=== PATIENT | female | born 1965 | race Caucasian/White ===

== ENCOUNTER 2020-02-12 10:05 | Outpatient (REF) | payer OTHER, SELFPAY ==
[2020-02-12 10:58] LABS: MANUAL DIFF FLAG NO
[2020-02-12 11:06] LABS: Basophils Absolute Auto 0.1 X10*3/uL (0.0-0.2); Basophils Percent Auto 1.1 % (0-2); Eosinophils Absolute Auto 0.2 X10*3/uL (0.0-0.4); Eosinophils Percent Auto 2.2 % (0-4); Hematocrit 42.1 % (37-47); Imm Gran Abs Auto 0.02 X10*3/uL (0.00-0.03); Imm Gran Pct Auto 0.3 % (0.0-0.4); Lymphocytes Absolute Auto 3.1 X10*3/uL (1.2-4.9); Mean Corpuscular HGB Conc 33.3 g/dl (31.0-35.0); Mean Corpuscular Hemoglobin 31.5 pg (27.0-33.0); Mean Corpuscular Volume 94.6 fL (80-98); Mean Platelet Volume 9.6 fL (9.4-12.3); Monocytes Absolute Auto 0.4 X10*3/uL (0.1-1.2); Monocytes Percent Auto 5.5 % (2-11); Neutrophils Absolute Auto 3.6 X10*3/uL (2.0-8.3); Neutrophils Percent Auto 48.9 % (45-73); Platelet Count 337 X10*3/uL (160-400); Red Blood Count 4.45 X10*6/uL (4.20-5.50); Red Cell Distribution Width 11.5 % (11.0-16.0); White Blood Count 7.3 X10*3/uL (4.8-10.8)
[2020-02-12 11:26] LABS: Anion Gap 14 (12-20); Blood Urea Nitrogen 18 mg/dL (9-16); Calcium 9.6 mg/dL (8.4-10.2); Carbon Dioxide 25 mmol/L (22-29); Chloride 103 mmol/L (96-108); Estimated Glomerular Filt Rate 47; Glucose Fasting 111 mg/dL (60-99); Potassium 4.2 mmol/l (3.3-5.1); Sodium 138 mmol/L (135-145)
[2020-02-12 11:49] LABS: TSH reflex Free T4 1.05 mIU/mL (0.32-4.0)
[2020-02-12 13:46] LABS: Cholesterol 254 mg/dL; HDL Cholesterol 44 mg/dL; LDL Cholesterol Calculated 167 mg/dl; Triglycerides 215 mg/dL
== END 2020-02-12 10:06 | disposition home or self-care (01) ==
LOC: HO.LAB 10:05
PROVIDERS: PCP Internal Medicine; Visit Provider Internal Medicine
DX: Z00.01 Encounter for general adult medical examination with abnormal findings (principal); E66.9 Obesity, unspecified; K29.70 Gastritis, unspecified, without bleeding; G47.9 Sleep disorder, unspecified; R89.4 Abnormal immunological findings in specimens from other organs, systems and tissues
CPT/HCPCS: 36415; 80048; 80061; 84443; 85025

== ENCOUNTER 2020-05-23 07:49 | Outpatient (REF) | payer OTHER, SELFPAY ==
[2020-05-24 08:21] LABS: BV Int Neg Control Negative (Negative); BV Int Pos Control Positive (Positive)
[2020-05-24 09:57] LABS: C. trachomatis RNA TMA NOT DETECTED (NOT DETECTED); N. gonorrhoeae RNA TMA NOT DETECTED (NOT DETECTED)
== END 2020-05-23 07:50 | disposition home or self-care (01) ==
LOC: HO.LAB 07:49
PROVIDERS: PCP Internal Medicine; Visit Provider Advanced Practice Midwife
DX: Z01.419 Encounter for gynecological examination (general) (routine) without abnormal findings (principal); R10.2 Pelvic and perineal pain; E66.09 Other obesity due to excess calories; Z68.30 Body mass index [BMI] 30.0-30.9, adult
CPT/HCPCS: 87480; 87491; 87510; 87591; 87660

== ENCOUNTER 2020-06-06 10:45 | Outpatient (REF) | payer OTHER, SELFPAY ==
--- NOTE | ~2020-06-06 | US_ITS ---
EXAMINATION: US PELVIS COMPLETE US PELVIS ENDOVAGINAL CLINICAL INFORMATION: Pelvic and perineal pain COMPARISON: 04/15/2016 TECHNIQUE: Transabdominal and transvaginal images of the pelvis were obtained. FINDINGS: UTERUS: Retroverted, retroflexed. Normal size and contour, measuring 7.3 x 5.2 x 6.7 cm (cervix to fundus x AP x transverse). Uniform, homogeneous endometrium measures 0.3 cm in width. There is fluid in the endometrial canal with an exophytic 5 mm structure which could represent a polyp or pedunculated fibroid. Several leiomyomata are seen. The largest is a 4.4 cm leiomyoma of the right uterine fundus, 1.3 cm leiomyoma in the left uterine fundus and a 2.9 cm right uterine body submucosal leiomyoma. A 1.2 cm right uterine body intramural leiomyoma was not present previously. RIGHT OVARY: Right ovary is not seen. No adnexal mass. LEFT OVARY: Normal-appearing left ovary measures 2.2 x 0.8 x 1.5 cm. FREE FLUID: No pelvic free fluid. US/US pelvic complete IMPRESSION: Multiple leiomyomata are seen. The largest measures 4.4 cm in the right uterine fundus, increased in size from 3.7 cm maximum dimension previously. There is a new 1.2 cm right uterine body leiomyoma. Additional leiomyomas are similarly slightly increased in size from prior study. Recommend correlation with the patient's menstrual status. It would be unusual for leiomyomata to increase in size after menopause although the prior study was remote, in 2016. There is fluid in the endometrial canal with a 5 mm exophytic soft tissue lesion which could represent a pedunculated leiomyoma or polyp. Consider correlation with hysteroscopy.
--- NOTE | ~2020-06-06 | US_ITS ---
EXAMINATION: US PELVIS COMPLETE US PELVIS ENDOVAGINAL CLINICAL INFORMATION: Pelvic and perineal pain COMPARISON: 04/15/2016 TECHNIQUE: Transabdominal and transvaginal images of the pelvis were obtained. FINDINGS: UTERUS: Retroverted, retroflexed. Normal size and contour, measuring 7.3 x 5.2 x 6.7 cm (cervix to fundus x AP x transverse). Uniform, homogeneous endometrium measures 0.3 cm in width. There is fluid in the endometrial canal with an exophytic 5 mm structure which could represent a polyp or pedunculated fibroid. Several leiomyomata are seen. The largest is a 4.4 cm leiomyoma of the right uterine fundus, 1.3 cm leiomyoma in the left uterine fundus and a 2.9 cm right uterine body submucosal leiomyoma. A 1.2 cm right uterine body intramural leiomyoma was not present previously. RIGHT OVARY: Right ovary is not seen. No adnexal mass. LEFT OVARY: Normal-appearing left ovary measures 2.2 x 0.8 x 1.5 cm. FREE FLUID: No pelvic free fluid. US/US transvaginal IMPRESSION: Multiple leiomyomata are seen. The largest measures 4.4 cm in the right uterine fundus, increased in size from 3.7 cm maximum dimension previously. There is a new 1.2 cm right uterine body leiomyoma. Additional leiomyomas are similarly slightly increased in size from prior study. Recommend correlation with the patient's menstrual status. It would be unusual for leiomyomata to increase in size after menopause although the prior study was remote, in 2016. There is fluid in the endometrial canal with a 5 mm exophytic soft tissue lesion which could represent a pedunculated leiomyoma or polyp. Consider correlation with hysteroscopy.
== END 2020-06-06 10:46 | disposition home or self-care (01) ==
LOC: HO.US 10:45
PROVIDERS: PCP Internal Medicine; Visit Provider Advanced Practice Midwife
DX: R10.2 Pelvic and perineal pain (principal)
CPT/HCPCS: 76830; 76856

== ENCOUNTER → 2020-06-20 11:22 | Outpatient (BNVA) | payer SELFPAY | PROVIDERS: PCP Internal Medicine; Visit Provider Advanced Practice Midwife | DX: Z71.2 Person consulting for explanation of examination or test findings (principal); D21.9 Benign neoplasm of connective and other soft tissue, unspecified; N89.8 Other specified noninflammatory disorders of vagina | CPT/HCPCS: Q3014 ==

== ENCOUNTER → 2020-07-04 15:18 | Outpatient (BNVA) | payer SELFPAY | PROVIDERS: PCP Internal Medicine; Visit Provider Nurse Practitioner | DX: K21.9 Gastro-esophageal reflux disease without esophagitis (principal); K29.60 Other gastritis without bleeding; Z83.71 Family history of colonic polyps; A04.8 Other specified bacterial intestinal infections | CPT/HCPCS: Q3014 ==

== ENCOUNTER → 2020-07-07 07:48 | Outpatient (BNVA) | payer SELFPAY | PROVIDERS: PCP Internal Medicine; Visit Provider Obstetrics & Gynecology | DX: R93.5 Abnormal findings on diagnostic imaging of other abdominal regions, including retroperitoneum (principal) | CPT/HCPCS: 99212 ==

== ENCOUNTER → 2020-08-01 13:15 | Outpatient (BNVA) | payer SELFPAY | PROVIDERS: PCP Internal Medicine; Visit Provider Nurse Practitioner | DX: A04.8 Other specified bacterial intestinal infections (principal); B37.81 Candidal esophagitis; B37.0 Candidal stomatitis; K29.60 Other gastritis without bleeding; K21.9 Gastro-esophageal reflux disease without esophagitis; E66.09 Other obesity due to excess calories; Z68.30 Body mass index [BMI] 30.0-30.9, adult; Z83.71 Family history of colonic polyps | CPT/HCPCS: Q3014 ==

== ENCOUNTER → 2020-08-22 13:03 | Outpatient (BNVA) | payer OTHER, SELFPAY | PROVIDERS: PCP Internal Medicine; Visit Provider Nurse Practitioner | DX: A04.8 Other specified bacterial intestinal infections (principal); K29.60 Other gastritis without bleeding; K21.9 Gastro-esophageal reflux disease without esophagitis; Z83.71 Family history of colonic polyps | CPT/HCPCS: Q3014 ==

== ENCOUNTER 2020-09-02 06:00 | Outpatient (REF) | payer SELFPAY | END 2020-09-02 06:01 | disposition home or self-care (01) | LOC: HO.LNP 06:00 | PROVIDERS: Visit Provider Nurse Practitioner | DX: Z11.0 Encounter for screening for intestinal infectious diseases (principal) | CPT/HCPCS: 87338 ==

== ENCOUNTER → 2020-09-20 14:40 | Outpatient (BNVA) | payer OTHER, SELFPAY | PROVIDERS: PCP Internal Medicine; Visit Provider Obstetrics & Gynecology | DX: R93.5 Abnormal findings on diagnostic imaging of other abdominal regions, including retroperitoneum (principal) | CPT/HCPCS: 99212; Q3014 ==

== ENCOUNTER 2020-09-28 08:47 | Day surgery (SDC) | payer OTHER, SELFPAY ==
[2020-08-30 19:37] VITALS: BMI 29.8
--- NOTE | 2020-09-27 10:18 | P.CONAN_ITS ---
Documented by User: Penny Reagan 09/27/20 10:19 HPI - Anesthesia Eval Consult details Narrative: 55yo F for Hysteroscopy with Myosure, Poss Polypectomy, Poss Myomectomy PMFSH Active Problems Active Problems: All Active Problems (Updated 09/27/20 @ 09:08 by Sonal Fernández MD) Abnormal endometrial ultrasound (Acute) Pelvic pain in female (Acute) Fibroids (Acute) Vaginal dryness (Acute) GERD (gastroesophageal reflux disease) (Acute) Erosive gastritis (Acute) Family history of polyps in the colon (Acute) H. pylori infection (Acute) Candidiasis of mouth and esophagus (Acute) Impaired fasting blood sugar (Acute) Herpes simplex antibody positive (Acute) Difficulty sleeping (Acute) Obesity (Acute) Past Medical History Medical History Difficulty sleeping Encounter to discuss test results Erosive gastritis GERD (gastroesophageal reflux disease) Herpes simplex antibody positive Impaired fasting blood sugar Obesity Well woman exam with routine gynecological exam Family History Family History Father Stomach cancer Mother HTN (hypertension) Diabetes mellitus High cholesterol CVD (cardiovascular disease) Maternal Aunt Breast cancer Surgical History Surgical History Breast mass, right History of endoscopy History of esophagogastroduodenoscopy (EGD) History of hysteroscopy History of radical nephrectomy History of tubal ligation Hx of cholecystectomy Hx of colonoscopy Social History Social History Alcohol intake: never Patient Tobacco Use Status: Never used Tobacco Use of substances other than those prescribed or required for medical reasons: No Have you been hit, kicked, punched, or otherwise hurt by someone within the past year? 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 Gender identity: female Meds Allergies Allergy/AdvReac Type Severity Reaction Status Date / Time bee pollen [BEE STINGS] Allergy Unknown SWELLING Verified 09/20/20 14:41 From PERCOCET AdvReac Unknown NAUSEA & Uncoded 07/07/20 08:07 VOMITING Home Medications Medication Instructions Recorded Confirmed Last Taken Type ketoconazole 2 % shampoo 1 appl TOPICAL DAILY PRN 02/04/20 08/30/20 Unknown History mometasone 0.1 % topical solution 1 appl TOPICAL DAILY PRN 02/04/20 08/30/20 Unknown History cholecalciferol (vitamin D3) 50 50 mcg PO QWEEK cap 07/04/20 08/30/20 Unknown History mcg (2,000 unit) capsule Exam Exam Date and Time: September 27, 2020 1018 Height,Weight and Vital Signs: Height 5 ft 1 in Weight 71.668 kg Assessment and Plan Assessment Anesthesia Assessment: Chart Reviewed Documented by User: Shahida Rapp 09/28/20 10:48 [facility] Past Medical History Medical History Difficulty sleeping Encounter to discuss test results Erosive gastritis GERD (gastroesophageal reflux disease) Herpes simplex antibody positive Impaired fasting blood sugar Obesity Well woman exam with routine gynecological exam Family History Family History Father Stomach cancer Mother HTN (hypertension) Diabetes mellitus High cholesterol CVD (cardiovascular disease) Maternal Aunt Breast cancer Surgical History Surgical History Breast mass, right History of endoscopy History of esophagogastroduodenoscopy (EGD) History of hysteroscopy History of radical nephrectomy History of tubal ligation Hx of cholecystectomy Hx of colonoscopy Social History Social History Alcohol intake: never Patient Tobacco Use Status: Never used Tobacco Use of substances other than those prescribed or required for medical reasons: No Have you been hit, kicked, punched, or otherwise hurt by someone within the past year? 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 Gender identity: female Meds Allergies Allergy/AdvReac Type Severity Reaction Status Date / Time bee pollen [BEE STINGS] Allergy Unknown SWELLING Verified 09/20/20 14:41 From PERCOCET AdvReac Unknown NAUSEA & Uncoded 07/07/20 08:07 VOMITING Home Medications Medication Instructions Recorded Confirmed Last Taken Type ketoconazole 2 % shampoo 1 appl TOPICAL DAILY PRN 02/04/20 08/30/20 Unknown History mometasone 0.1 % topical solution 1 appl TOPICAL DAILY PRN 02/04/20 08/30/20 Unknown History cholecalciferol (vitamin D3) 50 50 mcg PO QWEEK cap 07/04/20 08/30/20 Unknown History mcg (2,000 unit) capsule Exam Airway Mallampati Class: II TM Dist: >3cm Neck ROM: Full Assessment and Plan Assessment Anesthesia Assessment: Anesthesia Plan Discussed and Chart Reviewed Final Anesthetic Review NPO: Yes ASA Class: II Final Preanesthetic Review: No Changes in Pt Med Stat, Meds/Allgs Chart Reviewed, Consent Obtained/Reviewed and Anes Risks/Benef Reviewed Patient Risk: Low Procedure Risk: Low Assessment/Block/Sedation in SS: Assess/Block/Sedation-SS Anesthetic Plan Anesthetic Plan: MAC: Disposition: Standard PACU
[2020-09-28 09:02] VITALS: BMI 30.2
[2020-09-28 09:03] VITALS: BP 126/73; PULSE 76; RESP 18; TEMP 36.4; O2SAT 96
[2020-09-28] MEDS: Lactated Ringers 1,000 ML 100 ML IVCONT (09:28)
--- NOTE | 2020-09-28 10:17 | MHC.SHP ---
Pre-Procedural Eval Section A The patient is an INPATIENT: No Changes since office visit: No Cold of Flu in the past 2 weeks, No New Medical Problems, No Changes in Medication and No Patient answered all questions The History & Physical has been completed within 30 days and I have reviewed it.: Yes Section B Chief Complaint: Abnormal ultrasound of endometrium Allergies: Allergies Allergy/AdvReac Type Severity Reaction Status Date / Time bee pollen [BEE STINGS] Allergy Unknown SWELLING Verified 09/20/20 14:41 From PERCOCET AdvReac Unknown NAUSEA & Uncoded 07/07/20 08:07 VOMITING Plan I have reviewed the history and physical and performed a pertinent physical examination on my patient. No changes have occurred unless specified.
--- NOTE | 2020-09-28 10:19 | P.OP_ITS ---
Operative Note Operative Note Date of Service: 09/28/20 Narrative: Ms. Gerardo Ortega is a 55 year old postmenopausal . She presents today for hysteroscopy d&c for evaluation and treatment of endometrial ultrasound suspicious for endometrial polyp. Her ultrasound was ordered for eval uation of intermittent pelvic pain. Surgical Risks: The patient was informed of the risks and benefits of a hysteroscopy with dilation and curettage. Risks included but were not limited to bleeding, infection, injury to the vulva, vagina, or cervix, and uterine perforation with possible need for further surgery. The patient expressed understanding of the risks involved, all questions were answered, and the patient consented to the procedure. The patient was taken to the operating room where a time out was confirmed to confirm correct patient and correct procedure. Adequate IV sedatio was est ablished. The patient was then positioned on the operating table in the dorsal lithotomy position with her legs supported using stirrups. All pressure points were padded and a warm blanket was placed to maintain control of core body temperature. The patient was then prepped and draped in the usual sterile fashion. A bimanual exam was performed and the uterus was found to be approximately 6 cm size, midposition. No adnexal masses were palpated. A straight catheter was inserted into the bladder and the bladder emptied. A bivalve speculum was then inserted into the vagina. The anterior lip of the cervix was visualized and grasped using a single tooth tenaculum. A paracervical block was performed by injecting 6mL 0.5% bupivicaine each at the cervicovaginal junction at 4 and 7 o'clock. The cervical os initially appeared closed. A diallo dilator was used to attempt to gently open the os. Diallo dilators of graduating size were used alternating with the hysteroscope for hydrodilation, attempting to avoid creation of a false passage or perforation. The hysteroscope was introduced under direct visualization using normal saline solution as the distending media. Although no other path from the os could be visualized, I suspect a false passage was created as a normal uterine cavity with bilateral ostia was not visible. No uterine polyp was visualized. As this patient has not had postmenopausal bleeding and despite the question of a polyp on the US, the endometrial thickness was WNL for a postmenopausal woman at 3mm, the decision was made to not attempt further surgery as the risk was felt to outweigh any possible benefit. As I was not certain I was in the uterine cavity (I was not concerned that I was outside of the uterus but again I did suspect the possible creation of a false passage), I did not perform curettage. The hysteroscope was removed. The single-tooth tenaculum was removed from the anterior lip of the cervix and hemostasis was also noted at the tenaculum puncture sites. The speculum was then removed from the vagina. At the end of the procedure, all needle, sponge, and instrument counts were noted to be correct x2. The patient was transferred to the recovery room in stable condition.
[2020-09-28 11:16] VITALS: BP 110/53; PULSE 75; RESP 16; TEMP 37; O2SAT 95
[2020-09-28 11:21] VITALS: BP 113/68; PULSE 67; RESP 17; O2SAT 96
[2020-09-28 11:26] VITALS: BP 116/66; PULSE 70; RESP 17; O2SAT 95
[2020-09-28 11:36] VITALS: BP 108/68; PULSE 63; RESP 17; TEMP 37; O2SAT 96
== END 2020-09-28 12:05 | disposition home or self-care (01) ==
LOC: HO.SSS 08:48
PROVIDERS: PCP Internal Medicine; Visit Provider Obstetrics & Gynecology
PROC: 0UDB8ZX Extraction of Endometrium, Via Natural or Artificial Opening Endoscopic, Diagnostic (ICD-10-PCS; CPT 58558; principal; 2020-09-28 10:30)
DX: R93.5 Abnormal findings on diagnostic imaging of other abdominal regions, including retroperitoneum (principal); N95.9 Unspecified menopausal and perimenopausal disorder; R10.2 Pelvic and perineal pain; Z98.51 Tubal ligation status; Z90.49 Acquired absence of other specified parts of digestive tract; Z90.5 Acquired absence of kidney; Z88.8 Allergy status to other drugs, medicaments and biological substances
CPT/HCPCS: 58558; J1100; J1885; J2250; J2405; J3010

== ENCOUNTER → 2020-10-16 10:48 | Outpatient (BNVA) | payer OTHER, SELFPAY | PROVIDERS: Visit Provider Obstetrics & Gynecology | DX: R93.5 Abnormal findings on diagnostic imaging of other abdominal regions, including retroperitoneum (principal) | CPT/HCPCS: 99212 ==

== ENCOUNTER 2020-11-07 15:41 | Outpatient (REF) | payer OTHER, SELFPAY ==
--- NOTE | ~2020-11-07 | US_ITS ---
EXAMINATION: US PELVIS CLINICAL INFORMATION: Abnormal finding on diagnostic imaging dated 06/06/2020 which showed multiple uterine fibroids with an endometrial canal fluid collection and 5 mm solid mass within it COMPARISON: Ultrasound 06/06/2020 TECHNIQUE: Both transabdominal and endovaginal scanning were performed. FINDINGS: Again seen is anteverted fibroid uterus measuring 7.0 x 4.2 x 5.0 cm. Multiple uterine fibroids are again seen ranging in size from 1.4 x 1.1 x 1.3 cm to 3.5 x 3.5 x 4.2 cm. The largest fibroid has decreased in size previously measuring 4.4 x 2.7 x 4.3 cm. Again seen is fluid in the endometrial cavity along with a 6 x 7 x 6 mm polyp, increased in size since the prior study when this measured 5 mm. Endometrial thickness, excluding the fluid, is 0.4 cm. Right ovary appears normal measuring 1.7 x 1.0 x 1.5 cm for a volume 1.3 mL. Left ovary appears normal measuring 2.0 x 0.9 x 1.7 cm for a volume of 1.6 mL. No free fluid is present in the cul-de-sac. US/US pelvic and transvaginal IMPRESSION: Redemonstration of multiple uterine fibroids. Endometrial polypoid mass has increased in size. Hysteroscopy, if this has not already been performed, with biopsy may be of value.
== END 2020-11-07 15:42 | disposition home or self-care (01) ==
LOC: HO.US 15:41
PROVIDERS: Visit Provider Obstetrics & Gynecology
DX: R93.5 Abnormal findings on diagnostic imaging of other abdominal regions, including retroperitoneum (principal)
CPT/HCPCS: 76830; 76856

== ENCOUNTER 2020-11-21 08:05 | Outpatient (REF) | payer OTHER, SELFPAY | END 2020-11-21 08:06 | disposition home or self-care (01) | LOC: HO.LAB 08:05 | PROVIDERS: PCP Internal Medicine; Visit Provider Obstetrics & Gynecology | DX: R93.5 Abnormal findings on diagnostic imaging of other abdominal regions, including retroperitoneum (principal) | CPT/HCPCS: 58100; 88300; 88305; 99212 ==

== ENCOUNTER → 2020-12-05 11:29 | Outpatient (BNVA) | payer OTHER, SELFPAY | PROVIDERS: PCP Internal Medicine; Visit Provider Obstetrics & Gynecology ==

== ENCOUNTER → 2020-12-28 08:41 | Outpatient (BNVA) | payer OTHER, SELFPAY | PROVIDERS: PCP Internal Medicine; Visit Provider Nurse Practitioner ==

== ENCOUNTER 2021-02-17 09:46 | Outpatient (REF) | payer OTHER, SELFPAY ==
--- NOTE | ~2021-02-17 | MM_ITS ---
EXAMINATION: MM SCREENING DIGITAL BREAST TOMOSYNTHESIS, BILATERAL CLINICAL INFORMATION: Screening. Asymptomatic. The lifetime risk of breast cancer based on the Tyrer-Cuzick Model is 10%. COMPARISON: Mammography: 01/08/2020, 07/18/2018, 06/07/2017 TECHNIQUE: Digital breast tomosynthesis is performed in both the craniocaudal and mediolateral oblique views along with computer-aided detection (CAD). Synthesized 2D images are generated from the tomosynthesis. FINDINGS: The breasts are heterogeneously dense, which may obscure small masses (ACR BI-RADS breast composition Category c). Parenchymal pattern is similar to prior studies. Breast tissue composition borders on average fibroglandular. There is no developing density or abnormal calcifications. No significant mass or architectural abnormality. The skin contours are smooth. MM/MM tomosynthesis screening BI IMPRESSION: No mammographic evidence of malignancy. ASSESSMENT: BI-RADS 1: Negative RECOMMENDATION: Routine annual mammography screening. This patient's information was entered into a reminder system with a target due date for their next mammogram.
== END 2021-02-17 09:47 | disposition home or self-care (01) ==
LOC: HO.MAMMO 09:46
PROVIDERS: Visit Provider Internal Medicine
DX: Z12.31 Encounter for screening mammogram for malignant neoplasm of breast (principal)
CPT/HCPCS: 77063; 77067

== ENCOUNTER 2021-06-08 08:22 | Outpatient (REF) | payer OTHER, SELFPAY ==
[2021-06-08 12:11] LABS: Alanine Aminotransferase 17 U/L (0-31); Albumin Level 4.2 g/dL (3.5-5.0); Alkaline Phosphatase 118 U/L (39-117); Anion Gap 13 (12-20); Aspartate Amino Transferase 15 U/L (5-31); Bilirubin Total 0.9 mg/dL (0.0-1.0); Blood Urea Nitrogen 15 mg/dL (9-16); Calcium 9.8 mg/dL (8.4-10.2); Carbon Dioxide 27 mmol/L (22-29); Chloride 103 mmol/L (96-108); Cholesterol 255 mg/dL; Estimated Glomerular Filt Rate 48; Glucose Fasting 102 mg/dL (60-99); HDL Cholesterol 51 mg/dL; LDL Cholesterol Calculated 172 mg/dl; Sodium 139 mmol/L (135-145); Total Protein 7.6 g/dL (6.5-8.0); Triglycerides 162 mg/dL
[2021-06-08 12:20] LABS: Estimated Average Glucose 120 mg/dL; Hemoglobin A1c % 5.8 %
[2021-06-08 12:22] LABS: TSH reflex Free T4 1.27 uIU/mL (0.32-4.0)
== END 2021-06-08 08:23 | disposition home or self-care (01) ==
LOC: HO.HMGCLDS 08:22
PROVIDERS: Visit Provider Internal Medicine
DX: Z00.01 Encounter for general adult medical examination with abnormal findings (principal); R73.01 Impaired fasting glucose; E78.9 Disorder of lipoprotein metabolism, unspecified; E66.09 Other obesity due to excess calories; K21.9 Gastro-esophageal reflux disease without esophagitis
CPT/HCPCS: 36415; 80053; 80061; 83036; 84443

== ENCOUNTER → 2021-06-29 16:03 | Outpatient (BNVA) | payer OTHER, SELFPAY | PROVIDERS: PCP Internal Medicine; Referring Provider Internal Medicine; Visit Provider Nurse Practitioner ==

== ENCOUNTER 2022-01-25 | Outpatient (REF) | payer OTHER, SELFPAY ==
--- NOTE | ~2022-01-25 | XR_ITS ---
EXAMINATION: XR SHOULDER, LEFT CLINICAL INFORMATION: Shoulder pain COMPARISON: None TECHNIQUE: Left shoulder is imaged in 3 views. FINDINGS: No fracture, dislocation, destructive process. Normal bony mineralization. The acromioclavicular alignment is normal. No visible rotator cuff calcifications. XR/XR shoulder LT min 2V IMPRESSION: Normal left shoulder.
== END 2022-01-25 00:01 ==
LOC: HO.HOSX
PROVIDERS: Visit Provider Physician Assistant
DX: M75.102 Unspecified rotator cuff tear or rupture of left shoulder, not specified as traumatic (principal)
CPT/HCPCS: 20610; 73030; J1040

== ENCOUNTER 2022-03-09 08:10 | Outpatient (REF) | payer OTHER, SELFPAY ==
--- NOTE | ~2022-03-09 | MM_ITS ---
EXAMINATION: MM SCREENING DIGITAL BREAST TOMOSYNTHESIS, BILATERAL CLINICAL INFORMATION: Screening. Asymptomatic. The lifetime risk of breast cancer based on the Tyrer-Cuzick Model is 8%. COMPARISON: Mammography: 02/17/2021, 01/08/2020, 07/18/2018 TECHNIQUE: Digital breast tomosynthesis is performed in both the craniocaudal and mediolateral oblique views along with computer-aided detection (CAD). Synthesized 2D images are generated from the tomosynthesis. FINDINGS: The breasts are heterogeneously dense, which may obscure small masses (ACR BI-RADS breast composition Category c). There are no significant masses, abnormal calcifications, or other abnormalities. Parenchymal pattern is similar to prior studies. The axilla and skin contours are unremarkable. MM/MM tomosynthesis screening BI IMPRESSION: No mammographic evidence of malignancy. ASSESSMENT: BI-RADS 1: Negative RECOMMENDATION: Routine annual mammography screening. This patient's information was entered into a reminder system with a target due date for their next mammogram.
== END 2022-03-09 08:11 | disposition home or self-care (01) ==
LOC: HO.MAMMO 08:10
PROVIDERS: PCP Internal Medicine; Visit Provider Internal Medicine
DX: Z12.31 Encounter for screening mammogram for malignant neoplasm of breast (principal)
CPT/HCPCS: 77063; 77067

== ENCOUNTER 2022-11-01 13:07 | Outpatient (AMB) | payer OTHER, SELFPAY ==
--- NOTE | 2022-11-01 13:19 | MHC.PC.OV ---
Vital Signs 11/01/22 13:21 Height 5 ft 1 in Weight 158 lb BMI 29.9 BP 122/80 Blood Pressure Location Rt brachial Position Sitting Pulse 72 Pulse Source Pulse Oximeter Pulse Oximetry (%) 98 Oxygen Delivery Method Room Air Intake Visit Reasons: PE Allergies bee pollen [BEE STINGS] Allergy (Unknown, Verified 11/01/22 13:21) SWELLING From PERCOCET Adverse Reaction (Unknown, Uncoded 11/01/22 13:21) NAUSEA & VOMITING Medication List - Last Reconciled 11/01/22 by Emilio Magaña MD ketoconazole 2% 1 appl topical DAILY PRN peg 3350-electrolytes 236-22.74-6.74 -5.86 gram (Golytely) 240 mL PO Q10M 1 day rabeprazole 20 mg PO BID 30 days Tobacco use date assessed: 11/01/22 HPI PE HPI Details Patient is a 57-year-old female came in today for physical examination Patient recently lost brother suddenly at the age of 54, she is feeling depressed and is having difficulty sleeping at night She is asking for assistance. I have sent mirtazapine 15 mg tablet that she may take at night starting with half a tablet initially. She will call me back in 2 weeks to update me I have also sent message to our behavior health coordinator so we can help patient with therapy. She is also having cold so because of stress Labs are due to be done fasting Mammogram and Pap smear is up to date She is feeding for colonoscopy appointment Patient have developed are skin lesion over her left upper eyelid and is requesting a dermatology referral. [facility] Medical History Difficulty sleeping Encounter to discuss test results Erosive gastritis GERD (gastroesophageal reflux disease) Herpes simplex antibody positive Impaired fasting blood sugar Obesity Well woman exam with routine gynecological exam Surgical History Breast mass, right History of endoscopy History of esophagogastroduodenoscopy (EGD) History of hysteroscopy History of radical nephrectomy History of tubal ligation Hx of cholecystectomy Hx of colonoscopy Family History Father Stomach cancer Mother HTN (hypertension) Diabetes mellitus High cholesterol CVD (cardiovascular disease) Maternal Aunt Breast cancer Other Mental health disorder Substance use disorder Social History Housing: House Alcohol intake: never Patient Tobacco Use Status: Never used Tobacco Current occupational status: employed 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 How often do you have a drink containing alcohol?: Never 3. How often do you have six or more drinks on one occasion?: Never Total Score: 0 Score Reviewed/Action Taken: No MARY-7 AMB Questionnaire MARY-7 Date MARY - 7 assessed: 06/08/21 Source: Developed by Drs. Everton Calderón, Jane Spears, Romel Dmaon and colleagues, with an educational haja from [employer]. Review of Systems Const Denies chills, Denies fever(s) and Denies headache(s) Eyes Denies blurry vision ENT Denies headache(s), Denies nasal discharge, Denies nasal obstruction, Denies odynophagia and Denies sinus pain Card Denies chest pain at rest and Denies chest pain with activity Resp Denies cough and Denies hemoptysis GI Denies diarrhea, Denies odynophagia, Denies vomiting and Denies hematemesis Reports as per HPI Musc Denies abnormal gait Skin/Breast Reports as per HPI Neuro Denies Neuro-related abnormal movements, Denies Abnormal speech present, Denies abnormal gait, Denies headache(s) and Denies Sensory deficit (Neuro) Psych Denies mood swings and Denies paranoia Endo Reports as per HPI Benjamin/Lymph Reports as per HPI Aller/Immun Reports as per HPI Physical exam (Primary Care) Vital Signs: Last Vital Signs Pulse 72 11/01/22 13:21 BP 122/80 11/01/22 13:21 Pulse Ox 98 11/01/22 13:21 Oxygen Delivery Method Room Air 11/01/22 13:21 BMI result Body Mass Index 29.9 Tobacco/Smoking Status: Tobacco use Status Tobacco use date assessed 11/01/22 11/01/22 13:23 Patient Tobacco Use Status Never used Tobacco 11/01/22 13:23 Thrive Assessment: Date of Thrive Assessment Date Thrive assessed 06/08/21 11/01/22 13:23 Const General: cooperative, comfortable and no acute distress Orientation/consciousness: patient oriented x3 HENMT Head: Yes normocephalic and Yes atraumatic Eyes General: appearance normal, both eyes and all related structures Pupils: Equal, round and reactive pupils present EOM: EOMs intact bilaterally Eyes/upper lids images: 1. Yellow skin lesion Neck Neck: Yes supple and No lymphadenopathy Thyroid: Thyroid normal Lymphatic: no lymphadenopathy noted Resp Effort & Inspection: normal respiratory effort and able to speak in complete sentences Auscultation: clear to auscultation bilaterally Cardio Heart sounds: S1 normal heart sound present and S2 normal heart sound present GI Palpation (GI): Soft to palpation and nontender Auscultation: normal bowel sounds General: Yes no CVA tenderness Back/Spine/Pelvis Back: no CVA tenderness Skin General skin exam: elasticity normal and turgor normal Neuro General: patient oriented x3 and gait normal Cranial nerves: Yes Equal, round and reactive pupils present Speech: No Abnormal speech present Sensory Exam: No Sensory deficit (Neuro) Coordination: tandem gait normal and Romberg test negative Extrem General: Yes normal exam except as noted and No edema Assessment and Plan Assessment & Plan (1) Encounter for general adult medical examination with abnormal findings: Code(s): Z00.01 - Encounter for general adult medical examination with abnormal findings (2) Difficulty sleeping: Code(s): G47.9 - Sleep disorder, unspecified (3) Impaired fasting blood sugar: Code(s): R73.01 - Impaired fasting glucose (4) Obesity: Code(s): E66.9 - Obesity, unspecified Qualifiers: Obesity type: due to excess calories Obesity classification: adult class 1 (BMI 30 - 34.9) Serious obesity comorbidity presence: without serious comorbidity Body mass index: BMI 30.0-30.9 Qualified Code(s): E66.09 - Other obesity due to excess calories; Z68.30 - Body mass index [BMI]30.0-30.9, adult (5) Bereavement reaction: Code(s): F43.20 - Adjustment disorder, unspecified; Z63.4 - Disappearance and of family member (6) Skin lesion: Code(s): L98.9 - Disorder of the skin and subcutaneous tissue, unspecified Plan Patient is a 57-year-old female came in today for physical examination Patient recently lost brother suddenly at the age of 54, she is feeling depressed and is having difficulty sleeping at night She is asking for assistance. I have sent mirtazapine 15 mg tablet that she may take at night starting with half a tablet initially. She will call me back in 2 weeks to update me I have also sent message to our behavior health coordinator so we can help patient with therapy. She is also having cold so because of stress Labs are due to be done fasting Mammogram and Pap smear is up to date She is feeding for colonoscopy appointment Patient have developed are skin lesion over her left upper eyelid and is requesting a dermatology referral. Orders: Orders Comprehensive [place]. Panel Fast Today E66.9 - Obesity, unspecified, F43.20 - Adjustment disorder, unspecified, G47.9 - Sleep disorder, unspecified, R73.01 - Impaired fasting glucose, Z00.01 - Encounter for general adult medical examination with abnormal findings, Z63.4 - Disappearance and of family member Lipid Panel Today E66.9 - Obesity, unspecified, F43.20 - Adjustment disorder, unspecified, G47.9 - Sleep disorder, unspecified, R73.01 - Impaired fasting glucose, Z00.01 - Encounter for general adult medical examination with abnormal findings, Z63.4 - Disappearance and of family member Complete Blood Count Auto Diff Today E66.9 - Obesity, unspecified, F43.20 - Adjustment disorder, unspecified, G47.9 - Sleep disorder, unspecified, R73.01 - Impaired fasting glucose, Z00.01 - Encounter for general adult medical examination with abnormal findings, Z63.4 - Disappearance and of family member Referrals Dermatology Referral L98.9 - Disorder of the skin and subcutaneous tissue, unspecified Medications: New mirtazapine 15 mg PO BEDTIME 30 tabs 0RF valacyclovir 2,000 mg (2 x 1 gram) PO BID 1 day 4 tabs 2RF Cold sore Coding Level of Care Code Est Pt Prev Care 40-64y(17163) Diagnoses Encounter for general adult medical examination with abnormal findings Z00.01 Difficulty sleeping G47.9 Impaired fasting blood sugar R73.01 Obesity E66.09; Z68.30 Obesity type: due to excess calories Obesity classification: adult class 1 (BMI 30 - 34.9) Serious obesity comorbidity presence: without serious comorbidity Body mass index: BMI 30.0-30.9 Bereavement reaction F43.20; Z63.4 Skin lesion L98.9
[2022-11-01 13:21] VITALS: BP 122/80; PULSE 72; O2SAT 98; BMI 29.9
== END 2022-11-01 14:18 | disposition home or self-care (01) ==
PROVIDERS: Visit Provider Internal Medicine
DX: Z00.01 Encounter for general adult medical examination with abnormal findings (principal); Z68.30 Body mass index [BMI] 30.0-30.9, adult; F43.20 Adjustment disorder, unspecified; G47.9 Sleep disorder, unspecified; R73.01 Impaired fasting glucose; E66.09 Other obesity due to excess calories; Z63.4 Disappearance and death of family member; L98.9 Disorder of the skin and subcutaneous tissue, unspecified
CPT/HCPCS: 99396

== ENCOUNTER 2022-11-29 07:56 | Outpatient (REF) | payer OTHER, SELFPAY ==
[2022-11-29 11:32] LABS: MANUAL DIFF FLAG NO
[2022-11-29 11:45] LABS: Basophils Absolute Auto 0.1 X10*3/uL (0.0-0.2); Basophils Percent Auto 0.9 % (0-2); Eosinophils Absolute Auto 0.2 X10*3/uL (0.0-0.4); Eosinophils Percent Auto 2.3 % (0-4); Hematocrit 40.1 % (37.0-47.0); Hemoglobin 13.2 g/dl (12.0-16.0); Imm Gran Abs Auto 0.02 X10*3/uL (0.00-0.03); Imm Gran Pct Auto 0.3 % (0.0-0.4); Lymphocytes Absolute Auto 2.3 X10*3/uL (1.2-4.9); Lymphocytes Percent Auto 34.8 % (20-40); Mean Corpuscular HGB Conc 32.9 g/dl (31.0-35.0); Mean Corpuscular Hemoglobin 30.6 pg (27.0-33.0); Mean Corpuscular Volume 92.8 fL (80.0-98.0); Mean Platelet Volume 9.4 fL (9.4-12.3); Monocytes Absolute Auto 0.4 X10*3/uL (0.1-1.2); Monocytes Percent Auto 5.9 % (2-11); Neutrophils Absolute Auto 3.7 x10*3/uL (2.0-8.3); Neutrophils Percent Auto 55.8 % (45-73); Platelet Count 294 X10*3/uL (160-400); Red Blood Count 4.32 X10*6/uL (4.20-5.50); Red Cell Distribution Width 11.8 % (11.0-16.0); White Blood Count 6.6 X10*3/uL (4.8-10.8)
[2022-11-29 12:09] LABS: Alanine Aminotransferase 15 U/L (0-31); Albumin Level 4.1 g/dL (3.5-5.0); Alkaline Phosphatase 111 U/L (39-117); Anion Gap 14 (12-20); Aspartate Amino Transferase 14 U/L (5-31); Bilirubin Total 0.8 mg/dL (0.0-1.0); Blood Urea Nitrogen 14 mg/dL (9-16); Calcium 9.8 mg/dL (8.4-10.2); Carbon Dioxide 23 mmol/L (22-29); Chloride 109 mmol/L (96-108); Cholesterol 242 mg/dL; Estimated Glomerular Filt Rate 52; Glucose Fasting 115 mg/dL (60-99); HDL Cholesterol 43 mg/dL; LDL Cholesterol Calculated 163 mg/dl; Potassium 3.8 mmol/L (3.3-5.1); Sodium 142 mmol/L (135-145); Total Protein 7.4 g/dL (6.5-8.0); Triglycerides 184 mg/dL
== END 2022-11-29 07:57 | disposition home or self-care (01) ==
LOC: HO.HMGCLDS 07:56
PROVIDERS: PCP Internal Medicine; Visit Provider Internal Medicine
DX: Z00.01 Encounter for general adult medical examination with abnormal findings (principal); E66.9 Obesity, unspecified; F43.20 Adjustment disorder, unspecified; R73.01 Impaired fasting glucose; G47.9 Sleep disorder, unspecified
CPT/HCPCS: 36415; 80053; 80061; 85025

== ENCOUNTER 2022-12-27 07:50 | Outpatient (AMB) | payer OTHER, SELFPAY ==
--- NOTE | 2022-12-27 07:48 | MHC.PC.OV ---
Intake Visit Reasons: Follow up Labs Allergies bee pollen [BEE STINGS] Allergy (Unknown, Verified 11/01/22 13:21) SWELLING From PERCOCET Adverse Reaction (Unknown, Uncoded 11/01/22 13:21) NAUSEA & VOMITING Medication List - Last Reconciled 12/27/22 by Emilio Magaña MD ketoconazole 2% 1 appl topical DAILY PRN mirtazapine 15 mg PO BEDTIME peg 3350-electrolytes 236-22.74-6.74 -5.86 gram (Golytely) 240 mL PO Q10M 1 day rabeprazole 20 mg PO BID 30 days valacyclovir 2,000 mg (2 x 1 gram) PO BID 1 day Tobacco use date assessed: 11/01/22 HPI Follow up Labs HPI Details Patient is 57-year-old female this is a telemedicine conference Impaired fasting sugar: Her blood sugar has gotten slightly worse at 115 Lipid disorder: LDL is 163 Patient would like to continue with diet modification she is not interested in taking any medications Difficulty sleeping: Patient is not taking mirtazapine 15 mg as needed which is helping her. She has a physical exam appointment next year in October we will repeat labs again at that time. [facility] Medical History Erosive gastritis GERD (gastroesophageal reflux disease) Encounter to discuss test results Well woman exam with routine gynecological exam Impaired fasting blood sugar Herpes simplex antibody positive Difficulty sleeping Obesity Surgical History History of endoscopy History of esophagogastroduodenoscopy (EGD) Hx of colonoscopy History of radical nephrectomy History of hysteroscopy Hx of cholecystectomy Breast mass, right History of tubal ligation Family History Father Stomach cancer Mother HTN (hypertension) Diabetes mellitus High cholesterol CVD (cardiovascular disease) Maternal Aunt Breast cancer Other Mental health disorder Substance use disorder Social History Housing: House Alcohol intake: never Patient Tobacco Use Status: Never used Tobacco Current occupational status: employed 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 Everton Calderón, Jane Spears, Romel Damon and colleagues, with an educational haja from [employer]. Review of Systems Const All systems reviewed & are unremarkable except as noted in HPI and below Physical exam (Primary Care) Tobacco/Smoking Status: Tobacco use Status Tobacco use date assessed 11/01/22 11/01/22 13:23 Patient Tobacco Use Status Never used Tobacco 11/01/22 13:23 Thrive Assessment: Date of Thrive Assessment Date Thrive assessed 06/08/21 11/01/22 13:23 Telehealth Telehealth Location of provider rendering services: practice address Location of patient: address on file Patient Identification confirmed using: Name, : Yes Telehealth method: voice only Patient verbally consented to treatment: Yes Patient verbally consented to billing insurance company: Yes Patient informed of any privacy concerns related to visit: Yes Assessment and Plan Assessment & Plan (1) Difficulty sleeping: Code(s): G47.9 - Sleep disorder, unspecified (2) Impaired fasting blood sugar: Code(s): R73.01 - Impaired fasting glucose (3) Lipid disorder: Code(s): E78.9 - Disorder of lipoprotein metabolism, unspecified Plan Patient is 57-year-old female this is a telemedicine conference Impaired fasting sugar: Her blood sugar has gotten slightly worse at 115 Lipid disorder: LDL is 163 Patient would like to continue with diet modification she is not interested in taking any medications Difficulty sleeping: Patient is not taking mirtazapine 15 mg as needed which is helping her. She has a physical exam appointment next year in October we will repeat labs again at that time. Coding Level of Care Code Tele Est Pt Level 3 (02636) Diagnoses Difficulty sleeping G47.9 Impaired fasting blood sugar R73.01 Lipid disorder E78.9
== END 2022-12-27 08:49 | disposition home or self-care (01) ==
LOC: HO.HMGC 07:50
PROVIDERS: PCP Internal Medicine; Visit Provider Internal Medicine
DX: G47.9 Sleep disorder, unspecified (principal); R73.01 Impaired fasting glucose; E78.9 Disorder of lipoprotein metabolism, unspecified
CPT/HCPCS: 99213

== ENCOUNTER 2023-02-18 13:31 | Outpatient (REF) | payer OTHER, SELFPAY | END 2023-02-18 13:32 | disposition home or self-care (01) | LOC: HO.HOSX 13:31 | PROVIDERS: Visit Provider Physician Assistant | DX: Z13.89 Encounter for screening for other disorder (principal) ==

== ENCOUNTER 2023-02-21 14:10 | Outpatient (AMB) | payer OTHER, SELFPAY ==
--- NOTE | 2023-02-21 14:28 | A.OFFVIS_ITS ---
Intake Vital Signs 02/21/23 14:30 Height 5 ft 1 in Weight 158 lb BMI 29.9 Handedness Right Intake Visit Reasons: OV-LT shoulder, painful arc syndrome injection Intake Note: Shanika is a 57 year old female who presents today for a follow up appointment for her left shoulder pain. Patient reports her last injections gave her about a year plus of relief and would like to repeat her injections. Allergies bee pollen [BEE STINGS] Allergy (Unknown, Verified 02/21/23 14:30) SWELLING From PERCOCET Adverse Reaction (Unknown, Uncoded 11/01/22 13:21) NAUSEA & VOMITING HPI OV-LT shoulder, painful arc syndrome injection HPI Details 57-year-old right hand dominant female renae wilson presents in the office today for a follow up of right shoulder pain. The patient had a cortisone injection in the left shoulder on 01/25/2022. She states the injection gave her about a year of pain relief. She would like to repeat the cortisone injection while in the of fice today. [facility] Medical History Erosive gastritis GERD (gastroesophageal reflux disease) Encounter to discuss test results Well woman exam with routine gynecological exam Impaired fasting blood sugar Herpes simplex antibody positive Difficulty sleeping Obesity Surgical History History of endoscopy History of esophagogastroduodenoscopy (EGD) Hx of colonoscopy History of radical nephrectomy History of hysteroscopy Hx of cholecystectomy Breast mass, right History of tubal ligation Family History Father Stomach cancer Mother HTN (hypertension) Diabetes mellitus High cholesterol CVD (cardiovascular disease) Maternal Aunt Breast cancer Other Mental health disorder Substance use disorder Social History Housing: House Alcohol intake: never Patient Tobacco Use Status: Never used Tobacco Current occupational status: employed 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 Gender identity: Female Cognitive needs: No Hearing needs: Yes Vision needs: No Female Reproductive History Menstrual Age of Menarche: 11 Review of Systems Const All systems reviewed & are unremarkable except as noted in HPI and below Physical Exam Vital Signs: BMI result Body Mass Index 29.9 Const General: cooperative, healthy appearing and no acute distress Orientation/consciousness: patient oriented x3 HEENT Head: Yes normal to inspection, Yes normocephalic and Yes atraumatic Eyes General: appearance normal, both eyes and all related structures Resp Effort & Inspection: normal respiratory effort and able to speak in complete sentences Cardio Rate: regular rate Peripheral pulses: Peripheral pulses 2+ throughout GI Palpation (GI): Soft to palpation Skin Lesions: no lesions Rashes: no rashes Neuro General: patient oriented x3 Extrem Other: bilateral shoulders: Normal to inspection. No ecchymosis, erythema, or edema. Patient is able to demonstrate forward flexion to end range. Abduction is lacking 30 degrees. External rotation to 45 degrees. Able to reach T12. Negative cross-body reach. Negative empty can. Negative drop arm. NVI. Psych Mental Status: mental status grossly normal Office Procedures Joint Injection/Drain Joint Injection/Drain Primary Site: right shoulder Secondary Site: left shoulder Prep: site was prepped using aseptic technique, ethochloride spray was applied and injection warnings given Injected: 80 mg of, DepoMedrol, with 8 mL of (2% plain lido ) and in the subcromial space Approach Used: posterolateral Procedure: The patient tolerated the procedure well, but had some pain with the injection and there was some relief with the local anesthesia Coding 02241 - Large joint Procedure code (CPT) selection complete Results Reviewed Results Reviewed: 02/21/23 14:28 Lidocaine HCl 2 % MPF [Xylocaine 2 % MPF] 5 ml .ROUTE .STK-MED ONE methylPREDNISolone acetate [DEPO-MedroL] 80 mg .ROUTE .STK-MED ONE Assessment & Plan Assessment & Plan (1) Painful arc syndrome of left shoulder: Code(s): M75.102 - Unspecified rotator cuff tear or rupture of left shoulder, not specified as traumatic (2) Painful arc syndrome of right shoulder: Code(s): M75.101 - Unspecified rotator cuff tear or rupture of right shoulder, not specified as traumatic Plan Ms. Gerardo Ortega is a 57-year-old right hand dominant female who presents in the office today for a follow up of right shoulder pain. The patient had a cortisone injection in the left shoulder on 01/25/2022. She states the injection gave her about a year of pain relief. She would like to repeat the cortisone injection while in the office today. The patient was offered a cortisone injection in the bilateral shoulders with 80 mg of DepoMedrol. The patient was explained the risk, benefits, and alternatives to receiving this injection. After receiving consent for the injection, the patient had the procedure done while in office today. The patient tolerated the procedure well with no complications. Follow up will be PRN, or sooner if needed. X-rays of the right shoulder which were obtained while in the office today and were reviewed by me, Kennedi Boyd PA-C, revealed no acute fracture or dis location. Orders: Orders XR shoulder RT min 2V 02/21/23 M25.519 - Pain in unspecified shoulder Patient Instructions: Scribed for Kennedi Boyd PA-C by Rachana Sellers director biomedical engineering, on 02/21/2023 at 2:25 pm, EST. Coding Level of Care Code Est Pt Level 3 (52128) Diagnoses Painful arc syndrome of left shoulder M75.102 Painful arc syndrome of right shoulder M75.101 CPT Codes Coding - 30492 Large joint: 92900 - Large joint ([id number])
[2023-02-21 14:30] VITALS: BMI 29.9
== END 2023-02-21 14:43 | disposition home or self-care (01) ==
PROVIDERS: PCP Internal Medicine; Visit Provider Physician Assistant
DX: M75.102 Unspecified rotator cuff tear or rupture of left shoulder, not specified as traumatic (principal); M75.101 Unspecified rotator cuff tear or rupture of right shoulder, not specified as traumatic
CPT/HCPCS: 20610; 99213

== ENCOUNTER 2023-02-21 14:10 | Outpatient (REF) | payer OTHER, SELFPAY ==
--- NOTE | ~2023-02-21 | XR_ITS ---
EXAMINATION: XR SHOULDER, RIGHT CLINICAL INFORMATION: Reason for Exam M25.519 - Pain in unspecified shoulder COMPARISON: Shoulder radiographs 03/24/2019 TECHNIQUE: Three views of the shoulder. FINDINGS: No acute fracture or dislocation. Mild degenerative changes of the acromioclavicular joint with degenerative spurring. Soft tissues are unremarkable. XR/XR shoulder RT min 2V IMPRESSION: * Mild degenerative changes of the shoulder.
== END 2023-02-21 14:11 | disposition home or self-care (01) ==
LOC: HO.HOSX 14:10
PROVIDERS: PCP Internal Medicine; Visit Provider Physician Assistant
DX: M75.102 Unspecified rotator cuff tear or rupture of left shoulder, not specified as traumatic (principal); M75.101 Unspecified rotator cuff tear or rupture of right shoulder, not specified as traumatic
CPT/HCPCS: 20610; 73030

== ENCOUNTER 2023-03-12 08:52 | Outpatient (AMB) | payer OTHER, SELFPAY ==
[2023-03-12 09:03] VITALS: PULSE 70; BMI 30.1
--- NOTE | 2023-03-12 09:03 | AM.OFFWIN_ITS ---
Intake Vital Signs 3 03/12/23 09:03 Height 5 ft 1 in Weight 159 lb 4 oz BMI 30.1 Pulse 70 Intake Visit Reasons: EP, rash on back of left upper thigh Patient Tobacco Use Status: Never used Tobacco Allergies bee pollen [BEE STINGS] Allergy (Unknown, Verified 03/12/23 09:04) SWELLING From PERCOCET Adverse Reaction (Unknown, Uncoded 11/01/22 13:21) NAUSEA & VOMITING Medication List - Last Reconciled 03/12/23 by Emilio Magaña MD ketoconazole 2% 1 appl topical DAILY PRN mirtazapine 15 mg PO BEDTIME peg 3350-electrolytes 236-22.74-6.74 -5.86 gram (Golytely) 240 mL PO Q10M 1 day rabeprazole 20 mg PO BID 30 days valacyclovir 2,000 mg (2 x 1 gram) PO BID 1 day Do you need a note to return to daycare/school/sports/work: No HPI EP, rash on back of left upper thigh 2 HPI0 Details Patient is a 57-year-old female came in today to be evaluated for rash that she has developed left leg on decide since past Friday Today is 3rd day, patient says that it started as a small patch and then it got worse and is painful now. On examination she has 5 x 5 patch with central vesicles left side L4 dermatome I have sent famciclovir 500 mg t.i.d. for 7 days Patient may use [id number] hydrocortisone cream over the rash for itching and pain. [facility] Medical History Erosive gastritis GERD (gastroesophageal reflux disease) Encounter to discuss test results Well woman exam with routine gynecological exam Impaired fasting blood sugar Herpes simplex antibody positive Difficulty sleeping Obesity Surgical History History of endoscopy History of esophagogastroduodenoscopy (EGD) Hx of colonoscopy History of radical nephrectomy History of hysteroscopy Hx of cholecystectomy Breast mass, right History of tubal ligation Family History Father Stomach cancer Mother HTN (hypertension) Diabetes mellitus High cholesterol CVD (cardiovascular disease) Maternal Aunt Breast cancer Other Mental health disorder Substance use disorder Housing: House Alcohol intake: never Patient Tobacco Use Status: Never used Tobacco Current occupational status: employed 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 Gender identity: Female Cognitive needs: No Hearing needs: Yes Vision needs: No Female Reproductive History Menstrual Age of Menarche: 11 Review of Systems Const All systems reviewed & are unremarkable except as noted in HPI and below Physical Exam Vital Signs: BMI result Body Mass Index 30.1 Const General: no acute distress Orientation/consciousness: patient oriented x3 Eyes General: appearance normal, both eyes and all related structures Resp Effort & Inspection: normal respiratory effort and able to speak in complete sentences Auscultation: clear to auscultation bilaterally Skin Full body images: 2 1. 5 x 5 patch with central vesicles and erythema Neuro General: patient oriented x3 Psych Mental Status: mental status grossly normal Assessment & Plan Assessment & Plan (1) Herpes zoster: Code(s): B02.9 - Zoster without complications Qualifiers: Herpes zoster complications: without complications Qualified Code(s): B 02.9 - Zoster without complications Plan Patient is a 57-year-old female came in today to be evaluated for rash that she has developed left leg on decide since past Friday Today is 3rd day, patient says that it started as a small patch and then it got worse and is painful now. On examination she has 5 x 5 patch with central vesicles left side L4 dermatome I have sent famciclovir 500 mg t.i.d. for 7 days Patient may use [id number] hydrocortisone cream over the rash for itching and pain. Medications: New 2 famciclovir 500 mg PO Q8H 7 days 21 tabs 0RF Coding Level of Care Code Est Pt Level 3 (82466) Diagnoses Herpes zoster without complication B02.9 Herpes zoster complications: without complications
== END 2023-03-12 10:42 | disposition home or self-care (01) ==
PROVIDERS: PCP Internal Medicine; Visit Provider Internal Medicine
DX: B02.9 Zoster without complications (principal)
CPT/HCPCS: 99213

== ENCOUNTER 2023-03-15 08:01 | Outpatient (REF) | payer OTHER, SELFPAY | END 2023-03-15 08:02 | disposition home or self-care (01) | LOC: HO.MAMMO 08:01 | PROVIDERS: PCP Internal Medicine; Visit Provider Internal Medicine | DX: Z12.31 Encounter for screening mammogram for malignant neoplasm of breast (principal) | CPT/HCPCS: 77063; 77067 ==

== ENCOUNTER → 2023-03-15 08:15 | Outpatient (BNV) | payer OTHER, SELFPAY | PROVIDERS: PCP Internal Medicine; Visit Provider Radiology Diagnostic Radiology | DX: Z12.31 Encounter for screening mammogram for malignant neoplasm of breast (principal) | CPT/HCPCS: 77063; 77067 ==

== ENCOUNTER 2023-03-28 11:49 | Day surgery (SDC) | payer OTHER, SELFPAY ==
--- NOTE | 2023-03-27 10:24 | HO.ANESPROP2 ---
Documented by User: Penny Regaan NP 03/27/23 10:25 HPI - Anesthesia Eval Consult details Narrative: 57yo F for Upper Endoscopy and Colonoscopy PMF Active Problems Active Problems: All Active Problems (Updated 03/12/23 @ 09:11 by Emilio Magaña MD) Herpes zoster (Acute) Painful arc syndrome of right shoulder (Acute) Skin lesion (Acute) Bereavement reaction (Acute) Painful arc syndrome of left shoulder (Acute) Tonsillar erythema (Acute) Constipation (Acute) Obesity due to excess calories (Acute) Lipid disorder (Acute) Encounter for general adult medical examination with abnormal findings (Acute) GERD (gastroesophageal reflux disease) (Acute) Erosive gastritis (Acute) Abnormal endometrial ultrasound (Acute) Pelvic pain in female (Acute) Fibroids (Acute) Vaginal dryness (Acute) Family history of polyps in the colon (Acute) H. pylori infection (Acute) Candidiasis of mouth and esophagus (Acute) Impaired fasting blood sugar (Acute) Herpes simplex antibody positive (Acute) Difficulty sleeping (Acute) Obesity (Acute) Past Medical History Medical History Erosive gastritis GERD (gastroesophageal reflux disease) Encounter to discuss test results Well woman exam with routine gynecological exam Impaired fasting blood sugar Herpes simplex antibody positive Difficulty sleeping Obesity Family History Family History Father Stomach cancer Mother HTN (hypertension) Diabetes mellitus High cholesterol CVD (cardiovascular disease) Maternal Aunt Breast cancer Other Mental health disorder Substance use disorder Surgical History Surgical History History of endoscopy History of esophagogastroduodenoscopy (EGD) Hx of colonoscopy History of radical nephrectomy History of hysteroscopy Hx of cholecystectomy Breast mass, right History of tubal ligation Social History Social History Housing: House Alcohol intake: never Patient Tobacco Use Status: Never used Tobacco Are you DNR?: No Advance Directives: No Advance Directives Information Provided: Yes Nutrition Risks: No Nutritional Risk Current occupational status: employed 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 Gender identity: Female Cognitive needs: No Hearing needs: Yes Vision needs: No Meds Allergies Allergy/AdvReac Type Severity Reaction Status Date / Time bee pollen [BEE STINGS] Allergy Unknown SWELLING Verified 03/28/23 12:29 From PERCOCET AdvReac Unknown NAUSEA & Uncoded 03/28/23 12:29 VOMITING Home Medications Medication Instructions Recorded Confirmed Last Taken Type ketoconazole 2 % shampoo 1 appl topical DAILY PRN Rash 02/04/20 03/28/23 Unknown History Exam Pertinent Lab Results Pertinent Lab Results: Laboratory Tests 11/29/22 08:03 WBC 6.6 Hgb 13.2 Hct 40.1 Plt Count 294 Sodium 142 Potassium 3.8 Chloride 109 H Carbon Dioxide 23 BUN 14 Creatinine 1.08 Assessment and Plan Assessment Anesthesia Assessment: Chart Reviewed Documented by User: Guerline Zuniga MD 03/28/23 13:19 PMFSH Past Medical History Medical History Erosive gastritis GERD (gastroesophageal reflux disease) Encounter to discuss test results Well woman exam with routine gynecological exam Impaired fasting blood sugar Herpes simplex antibody positive Difficulty sleeping Obesity Family History Family History Father Stomach cancer Mother HTN (hypertension) Diabetes mellitus High cholesterol CVD (cardiovascular disease) Maternal Aunt Breast cancer Other Mental health disorder Substance use disorder Family history of problems with anesthesia: No Surgical History Surgical History History of endoscopy History of esophagogastroduodenoscopy (EGD) Hx of colonoscopy History of radical nephrectomy History of hysteroscopy Hx of cholecystectomy Breast mass, right History of tubal ligation History of Problems with Anesthesia: No Social History Social History Housing: House Alcohol intake: never Patient Tobacco Use Status: Never used Tobacco Are you DNR?: No Advance Directives: No Advance Directives Information Provided: Yes Nutrition Risks: No Nutritional Risk Current occupational status: employed 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 Gender identity: Female Cognitive needs: No Hearing needs: Yes Vision needs: No Meds Allergies Allergy/AdvReac Type Severity Reaction Status Date / Time bee pollen [BEE STINGS] Allergy Unknown SWELLING Verified 03/28/23 12:29 From PERCOCET AdvReac Unknown NAUSEA & Uncoded 03/28/23 12:29 VOMITING Home Medications Medication Instructions Recorded Confirmed Last Taken Type ketoconazole 2 % shampoo 1 appl topical DAILY PRN Rash 02/04/20 03/28/23 Unknown History Exam Airway Mallampati Class: II TM Dist: >3cm Neck ROM: Full Heart: rrr Lungs: cta Assessment and Plan Assessment Anesthesia Assessment: Anesthesia Plan Discussed Final Anesthetic Review Family History of Problems with Anesthesia: No History of Problems with Anesthesia: No NPO: Yes ASA Class: II Final Preanesthetic Review: No Changes in Pt Med Stat, Meds/Allgs Chart Reviewed and Consent Obtained/Reviewed Patient Risk: Intermediate Procedure Risk: Intermediate Anesthetic Plan Anesthetic Plan: MAC: Disposition: Standard PACU
[2023-03-28 12:26] VITALS: BMI 30.1
[2023-03-28] MEDS: Lactated Ringers 1,000 ML 100 ML IVCONT (12:33)
[2023-03-28 12:41] VITALS: BP 134/81; PULSE 82; RESP 18; TEMP 36.6; O2SAT 96
--- NOTE | 2023-03-28 13:21 | MHC.SHP ---
Pre-Procedural Eval Section A Date of Service: 03/28/23 The patient is an INPATIENT: No The History & Physical has been completed within 30 days and I have reviewed it.: No Section B Chief Complaint: screening, FH of gastric cancer, FU H Pylori Relevant Family History (Specify if Yes): Yes Relevant Social History: None Present Medications: see Short Stay Collaborative assessment Medical History: Significant History (Erosive gastritis GERD (gastroesophageal reflux disease) Herpes simplex antibody positive Impaired fasting blood sugar Obesity) History of Previous Operations: Relevant previous surgery/procedure and date(s) (Breast mass, right History of endoscopy History of esophagogastroduodenoscopy (EGD) History of hysteroscopy History of radical nephrectomy History of tubal ligation Hx of cholecystectomy Hx of colonoscopy) Allergies: Allergies Allergy/AdvReac Type Severity Reaction Status Date / Time bee pollen [BEE STINGS] Allergy Unknown SWELLING Verified 03/28/23 12:29 From PERCOCET AdvReac Unknown NAUSEA & Uncoded 03/28/23 12:29 VOMITING Review of Systems Sugical H&P ROS: Negative: Constitution and Gastrointestinal Exam Surgical H&P Exam: Normal: Heart, Normal: Lungs, Normal: Extremities and Normal: Abdomen Plan Diagnosis/Plan: Unchanged I have reviewed the history and physical and performed a pertinent physical examination on my patient. No changes have occurred unless specified. Time Spent With Patient Time: Total time managing care of this patient today ____ minutes.
--- NOTE | 2023-03-28 14:15 | W.PM.OPN ---
Operative Note Operative Note Date of Service: 03/28/23 Narrative: FLEXIBLE TRANSORAL UPPER GASTROINTESTINAL ENDOSCOPY WITH BIOPSIES AND COLONOSCOPY TILL CECUM WITH BIOPSIES, SNARE POLYPECTOMY, SUBMUCOSAL INJECTION AND HEMOCLIP PLACEMENT Pre-op diagnosis: Colon cancer screening, FU of recurrent H Pylori infection, FH of gastric cancer Post-op diagnosis: Gastritis, gastric antral nodule, colon polyps, diverticulosis, hemorrhoids? Endoscopist:? Antony Mcghee MD Anesthesia:?MAC UPPER ENDOSCOPY Consent: Indications for the procedure and potential complications of bleeding, perforation, reaction to medications and missed diagnosis were discussed with the patient and informed consent was obtained. Instrument: Olympus GIF H 190 mid size upper endoscope Monitoring: Vital signs and clinical assessment, continuous EKG monitoring, Pulse oximetry, Carbon Dioxide monitoring and blood pressure monitoring were done throughout the procedure. Procedure: The patient was placed in the left lateral decubitis position and pre-procedure medications were administered and a bite block was placed. The endoscope was inserted into the mouth and advanced under direct vision to the third part of duodenum. A careful inspection was made as the upper endoscope was withdrawn including a retroflexed examination of the proximal stomach; Findings and interventions are described below. Findings: Larynx: Normal Esophagus: GE junction at 35 cms. No esophagitis or Macias's. Stomach: Moderate diffuse gastric erythema with nodular appearing gastric mucosa in the gastric body - biopsied. A 7-8 mm benign appearing nodule with central erosion in the antrum - biopsied. Antral biopsies were submitted for H Pylori culture and sensitivty. Grade 2 flap valve on retroflexed examination of the cardia. Duodenum: Normal bulb and descending duodenum Intervention: Biopsies as noted above COLONOSCOPY PROCEDURE NOTE Consent: Indications for the procedure and potential complications of bleeding, perforation, reaction to medications and missed diagnosis were discussed with the patient and informed consent was obtained. Instrument: Olympus PCF H 190 L variable stiffness pediatric colonoscope Monitoring: Vital signs and clinical assessment, intermittent blood pressure monitoring, continuous EKG monitoring, Pulse oximetry and Carbon Dioxide monitoring were done throughout the procedure. Colon withdrawl time was 28 minutes. Procedure: The patient was placed in the left lateral decubitis position and pre-procedure medications were administered. After a digital rectal examination of the ano-rectum, the video colonoscope was inserted into the rectum and advanced through the colon to the cecum. The colonoscope was slowly withdrawn in a retrograde panoramic fashion and the colon mucosa was carefully examined including a retroflexed view of the rectum. Findings and interventions are described below. Procedure Difficulty: : Without difficulty Findings: Terminal Ileum: Not evaluated Cecum: A 15 to 18 mm flat polyp -raised with 3 cc of Eleview and removed with a hot snare. Polypectomy site was closed with 2 hemoclips. Two 10-12 mm sessile polyps removed with a hot snare and polypectomy sites were closed with 1 hemoclip. Ascending Colon: A 4-5 mm sessile polyp in the mid AC - removed with a cold biopsy Transverse Colon: Normal Descending Colon: Moderate diverticulosis Sigmoid Colon: A few aphthoid ulcers from 20 to 30 cms - biopsies were obtained. Moderate diverticulosis Rectum: Normal Ano-rectum: Moderate internal hemorrhoids Colon preparation: Good Impression and Post Procedure Diagnosis: Endoscopy Findings: STOMACH: Nodular gastritis and benign appearing antral nodule Antral biopsies were submitted for H Pylori culture and sensitivty. Colonoscopy Findings: Three medium sized and one small polyps removed A few aphthoid ulcers in the sigmoid colon from 20 to 30 cms - likely related to NSAID use. Moderate diverticulosis seen in the left colon Moderate hemorrhoids on retroflexed exam. Plan: Await pathology results Patient has an appointment on 04/18/23 in the [facility] with Justine Perez NP. Can attempt retreating H Pylori based on culture and sensitivity results. Repeat Colonoscopy interval based on path results - in 3-5 years if polyps are adenomatous and 10 years if polyps are hyperplastic. Above findings were reviewed with the patient and H Pylori, colon polyps and diverticulosis handouts were given in the discharge area
[2023-03-28 15:16] VITALS: BP 113/69; PULSE 93; RESP 16; TEMP 36.2; O2SAT 96
[2023-03-28 15:31] VITALS: BP 109/76; PULSE 82; RESP 16; TEMP 36.8; O2SAT 96
[2023-04-08 09:15] LABS: H Pylori Cult Source BIOPSY
== END 2023-03-28 15:51 | disposition home or self-care (01) ==
PROVIDERS: PCP Internal Medicine; Visit Provider Internal Medicine Gastroenterology
PROC: (CPT 43239; principal; 2023-03-28 13:30)
DX: K29.60 Other gastritis without bleeding (principal); K31.7 Polyp of stomach and duodenum; K21.9 Gastro-esophageal reflux disease without esophagitis; Z12.11 Encounter for screening for malignant neoplasm of colon; D12.0 Benign neoplasm of cecum; K57.30 Diverticulosis of large intestine without perforation or abscess without bleeding; K64.8 Other hemorrhoids; K52.89 Other specified noninfective gastroenteritis and colitis; Z83.719 Family history of colon polyps, unspecified; E78.9 Disorder of lipoprotein metabolism, unspecified; A04.8 Other specified bacterial intestinal infections; Z79.899 Other long term (current) drug therapy
CPT/HCPCS: 43239; 45385; 45381; 45380; 36415; 87081; 88305; 88342; J2704

== ENCOUNTER → 2023-03-28 11:49 | Outpatient (BNV) | payer OTHER, SELFPAY | PROVIDERS: PCP Internal Medicine; Visit Provider Internal Medicine Gastroenterology | DX: Z12.11 Encounter for screening for malignant neoplasm of colon (principal); Z80.0 Family history of malignant neoplasm of digestive organs; K29.70 Gastritis, unspecified, without bleeding; K57.30 Diverticulosis of large intestine without perforation or abscess without bleeding; K64.8 Other hemorrhoids; K31.7 Polyp of stomach and duodenum; D12.0 Benign neoplasm of cecum; D12.2 Benign neoplasm of ascending colon; D12.5 Benign neoplasm of sigmoid colon | CPT/HCPCS: 43239; 45380; 45381; 45385 ==

== ENCOUNTER 2023-05-09 14:38 | Outpatient (AMB) | payer OTHER, SELFPAY ==
--- NOTE | 2023-05-09 14:48 | MHC.OFFVIS ---
Intake Vital Signs 05/09/23 15:04 Height 5 ft 1 in Weight 160 lb 14.999 oz BMI 30.4 BP 117/63 Blood Pressure Location Lt brachial Position Sitting Pulse 79 Intake Visit Reasons: s/P Double; Dr. Mcghee Intake Note: Patient returns to in office visit today in follow up of EGD and colonoscopy. CC: Patient underwent colonoscopy and EGD with Dr. Mcghee on 03/28/23. She reports she had rectal bleeding x3 days after procedure. She reports doing well and denies having any other GI concerns. 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 Mcghee HPI Details Assessment & Plan (1) Erosive gastritis: Code(s): K29.60 - Other gastritis without bleeding Plan: SHE SPEAKS MACEDONIAN. She is doing very well with her aciphex 20mg bid. She is not taking the carafat but prn and is ok with this. She is agreeable to having the colonoscopy r/t FHX polyps. He I also would like to get an upper endoscopy since she has had treatment resistant H pylori that is failed all of the known therapies and I want to see how her stomach is holding up with the symptomatic treatment. Dtr may have graves disease, this is currently being worked up and she is quite concerned about her. She will be going on vacation for cruise in May and I assured her we can work around her vacation plans with her colonoscopy. There are no prior problems with anesthesia or sedation. She denies any cardiac or respiratory problems. There are no infectious disease problems. ROV after colonoscopy/EGD (2) GERD (gastroesophageal reflux disease): Code(s): K21.9 - Gastro-esophageal reflux disease without esophagitis (3) Family history of polyps in the colon: Comment: Father of ? stomach vs CRC, patient's last scope 2016 repeat 2021 Code(s): Z83.71 - Family history of colonic polyps (4) H. pylori infection: Comment: Sent for allergy testing and NOT allergic to PCN., She has failed every known treatment Prevpac, Helidac, Levaquin a/amoxicillin, Rifabutin/ amoxicillin. At this time will managing her symptoms since we have been unable to eradicate this resistant microbe. There was 1 antibiotics did not tolerate I am uncertain if it was rifabutin Code(s): A04.8 - Other specified bacterial intestinal infections Medications: New peg 3350-electroly gabriel [id number] -5.86 gram (Golyt leonel) until feca l effluent is monica r; do not exceed a total volume of 2 ,000 mL 240 mL PO Q10M 1 day 4,000 mL 0RF Z12.11 - Encounter for screening for malignant neoplas m of colon Refilled rabeprazole 20 mg PO BID 30 d ays 60 tabs 6RF A04.8 - Other spec ified bacterial in testinal infection s, K21.9 - Gastro- esophageal reflux disease without es ophagitis, K29.60 - Other gastritis without bleeding EGD/ COLONOSCOPY 03/31/23 Findings: Larynx: Normal Esophagus: GE junction at 35 cms. No esophagitis or Macias's. Stomach: Moderate diffuse gastric erythema with nodular appearing gastric mucosa in the gastric body - biopsied. A 7-8 mm benign appearing nodule with central erosion in the antrum - biopsied. Antral biopsies were submitted for H Pylori culture and sensitivty. Grade 2 flap valve on retroflexed examination of the cardia. Duodenum: Normal bulb and descending duodenum Intervention: Biopsies as noted above Findings: Terminal Ileum: Not evaluated Cecum: A 15 to 18 mm flat polyp -raised with 3 cc of Eleview and removed with a hot snare. Polypectomy site was closed with 2 hemoclips. Two 10-12 mm sessile polyps removed with a hot snare and polypectomy sites were closed with 1 hemoclip. Ascending Colon: A 4-5 mm sessile polyp in the mid AC - removed with a cold biopsy Transverse Colon: Normal Descending Colon: Moderate diverticulosis Sigmoid Colon: A few aphthoid ulcers from 20 to 30 cms - biopsies were obtained. Moderate diverticulosis Rectum: Normal Ano-rectum: Moderate internal hemorrhoids Colon preparation: Good Impression and Post Procedure Diagnosis: Endoscopy Findings: STOMACH: Nodular gastritis and benign appearing antral nodule Antral biopsies were submitted for H Pylori culture and sensitivty. Colonoscopy Findings: Three medium sized and one small polyps removed A few aphthoid ulcers in the sigmoid colon from 20 to 30 cms - likely related to NSAID use. Moderate diverticulosis seen in the left colon Moderate hemorrhoids on retroflexed exam. Plan: Await pathology results Patient has an appointment on 04/18/23 in the GI Clinic with Justine Perez NP. Can attempt retreating H Pylori based on culture and sensitivity results. Repeat Colonoscopy interval based on path results - in 3-5 years if polyps are adenomatous and 10 years if polyps are hyperplastic. Above findings were reviewed with the patient and H Pylori, colon polyps and diverticulosis handouts were given in the discharge are BIOPSY Received: 03/31/23 Diagnosis A. Stomach, antral nodule, biopsy: - Antral-type mucosa with mild chronic, focally active, inflammation and regenerative changes. - Rare forms consistent with H. pylori identified. B. Stomach, body, biopsy: - Oxyntic mucosa with severe chronic active inflammation. - Positive for H pylori. C. Cecum, polypectomies: Fragments of sessile serrated lesions/polyps with thermal artifact; negative for cytologic dysplasia. D. Colon, ascending, polypectomy: Inflammatory polyp with background mild surface hyperplastic changes. E. Colon, sigmoid ulcer, biopsy: Mildly active colitis SUSCEPT, ANTIMICROBIAL HELICOBACTER PYLORI,VALENTINO AMOXICILLIN 0.125 S CLARITHROMYCIN >=256 R LEVOFLOXACIN >=32 R METRONIDAZOLE 0.125 S TETRACYCLINE 0.032 S TODAY'S VISIT SHE SPEAKS MACEDONIAN. Shanika tells me that she had some diarrhea and rectal bleeding for couple of days after the procedure. Makes sense in lieu of the finding of some active colitis in the sigmoid area. I informed her that we did take out polyps but that was not my biggest concern, I was more concerned that we further investigate this colitis since we did not have any findings that were similar on her last colonoscopy in 2017. Since she has had diarrhea that comes and goes mysteriously I think we need to rule out inflammatory bowel disease which can run exacerbating remitting course and be difficult to diagnose. I educate her about this and the fact that I will need more stool studies and some blood work and she is agreeable to this. She is also agreeable to a 5 year follow-up due to the polyps. The procedure was well tolerated. The results were explained and the patient is agreeable to the follow-up interval as stated. The bowel pattern has returned to normal. Education was provided to tell any 1st degree relatives about their findings to be sure that they are screened by age 45. Educated that they will be put on a recall list when it is time for their repeat scope but should they move out of state or away from the hospital they will need to remember along with their primary to repeat the procedure in a timely fashion to avoid any adverse complications. I tell her that the H pylori is still very active and in fact has caused somewhat of an ulcer in her stomach. Because of this I think we should try again to treat her even though we were uncertain which medications she did not tolerate in the past. The only medical regimen that will likely be successful would be doxycycline (tetracycline)/Flagyl since the bacteria via biopsy/culture is resistant to Levaquin and amoxicillin and clarithromycin. I want her to take just 1 antibiotic for 2 weeks at a time and then immediately begin the neck so if there is a reaction will know which is giving her the trouble. She also was thoroughly counseled not to drink any alcohol or use any [id number]-[id number] cough syrup that would have an alcohol base in order to avoid disulfiram reaction with the Flagyl. She is able to repeat verbalize understanding. The last time I treated her she also had oral Farida so will need to give her some Diflucan to prevent this. She continues on her rabeprazole 20 mg twice a day, and has used Carafate on an off her diarrhea but currently is not utilizing this. At point I think will return office visit in 6 weeks is appropriate to give her time to complete the H pylori therapy and get the stool samples in. She has currently not having diarrhea but again this is been transient in nature. [facility] Medical History (Updated 05/09/23 @ 15:19 by DENISE Dey) Encounter for general adult medical examination with abnormal findings Erosive gastritis GERD (gastroesophageal reflux disease) Encounter to discuss test results Well woman exam with routine gynecological exam Impaired fasting blood sugar Herpes simplex antibody positive Difficulty sleeping Obesity Surgical History History of endoscopy History of esophagogastroduodenoscopy (EGD) Hx of colonoscopy History of radical nephrectomy History of hysteroscopy Hx of cholecystectomy Breast mass, right History of tubal ligation Family History Father Stomach cancer Mother HTN (hypertension) Diabetes mellitus High cholesterol CVD (cardiovascular disease) Maternal Aunt Breast cancer Other Mental health disorder Substance use disorder Social History Housing: House Alcohol intake: never Patient Tobacco Use Status: Never used Tobacco Current occupational status: employed 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 Gender identity: Female Cognitive needs: No Hearing needs: Yes Vision needs: No Female Reproductive History Menstrual Age of Menarche: 11 Review of Systems Const Denies fatigue, Denies fever(s), Denies night sweats, Reports poor appetite and Denies weight loss ENT Reports Normal hearing present, Denies dental pain, Denies dysphagia, Denies hearing loss, Denies mouth pain, Denies odynophagia, Denies throat swelling, Denies tongue swelling and Reports other (Dentition adequate) Card Reports no additional complaints Resp Reports no additional complaints GI Denies abdominal pain, Denies melena, Reports bloating, Denies hematochezia, Reports constipation, Reports GI cramping, Denies dysphagia, Denies excessive flatus, Denies early satiety, Reports heartburn, Reports diarrhea, Reports nausea, Denies odynophagia, Denies vomiting and Denies hematemesis Skin/Breast Denies pruritus, Denies lesions, Denies rash and Denies jaundice Neuro Reports Normal hearing present and Denies Abnormal speech present Endo Denies fatigue Aller/Immun Denies throat swelling and Denies tongue swelling Physical Exam Vital Signs: Last Vital Signs Pulse 79 05/09/23 15:04 BP 117/63 05/09/23 15:04 BMI result Body Mass Index 30.4 Const General: cooperative, no acute distress, well developed and well groomed Nutritional Appearance: well nourished and obese Orientation/consciousness: oriented to person, oriented to place and oriented to time Limitations: No language barrier HEENT Head: Yes normocephalic and Yes atraumatic Eyes General: appearance normal, both eyes and all related structures Pupils: Equal, round and reactive pupils present Neck Neck: Yes normal visual inspection and Yes no lymphadenopathy Thyroid: Thyroid normal Resp Effort & Inspection: normal respiratory effort and able to speak in complete sentences Auscultation: clear to auscultation bilaterally Cardio Rate: regular rate Rhythm: regular rhythm Heart sounds: Normal, physiologic split S2 sound present Peripheral pulses: radial pulses present and posterior tibial pulses present GI Inspection: No distended, No Abdominal panniculus present and Yes obesity Palpation (GI): Soft to palpation, nontender, no guarding, not rigid and No hepatosplenomegaly present Percussion: Yes normal to percussion Auscultation: normal bowel sounds Rectal Exam - Female: deferred Skin General skin exam: no rashes or lesions noted, turgor normal, skin not dry, no jaundice, No spider nevi and no striae Rashes: no rashes Nails: normal Neuro General: oriented to person, oriented to place and oriented to time Cranial nerves: Yes Equal, round and reactive pupils present and Yes Normal hearing present Speech: No Abnormal speech present Extrem General: Yes normal to inspection, No clubbing, No cyanosis and No edema Psych Appearance: grossly normal and well kempt Mental Status: mental status grossly normal Speech and movement: Normal speech and movement present Affect: normal affect Attitude: cooperative Thought process: Normal thought process present and not confabulating Thought content: Normal thought content present Insight: Fair insight present (Psych) Judgement: Fair judgement present (Psych) Results Reviewed Results Reviewed: EGD/ COLONOSCOPY 03/31/23 Findings: Larynx: Normal Esophagus: GE junction at 35 cms. No esophagitis or Macias's. Stomach: Moderate diffuse gastric erythema with nodular appearing gastric mucosa in the gastric body - biopsied. A 7-8 mm benign appearing nodule with central erosion in the antrum - biopsied. Antral biopsies were submitted for H Pylori culture and sensitivty. Grade 2 flap valve on retroflexed examination of the cardia. Duodenum: Normal bulb and descending duodenum Intervention: Biopsies as noted above Findings: Terminal Ileum: Not evaluated Cecum: A 15 to 18 mm flat polyp -raised with 3 cc of Eleview and removed with a hot snare. Polypectomy site was closed with 2 hemoclips. Two 10-12 mm sessile polyps removed with a hot snare and polypectomy sites were closed with 1 hemoclip. Ascending Colon: A 4-5 mm sessile polyp in the mid AC - removed with a cold biopsy Transverse Colon: Normal Descending Colon: Moderate diverticulosis Sigmoid Colon: A few aphthoid ulcers from 20 to 30 cms - biopsies were obtained. Moderate diverticulosis Rectum: Normal Ano-rectum: Moderate internal hemorrhoids Colon preparation: Good Impression and Post Procedure Diagnosis: Endoscopy Findings: STOMACH: Nodular gastritis and benign appearing antral nodule Antral biopsies were submitted for H Pylori culture and sensitivty. Colonoscopy Findings: Three medium sized and one small polyps removed A few aphthoid ulcers in the sigmoid colon from 20 to 30 cms - likely related to NSAID use. Moderate diverticulosis seen in the left colon Moderate hemorrhoids on retroflexed exam. Plan: Await pathology results Patient has an appointment on 04/18/23 in the GI Clinic with Justine Perez NP. Can attempt retreating H Pylori based on culture and sensitivity results. Repeat Colonoscopy interval based on path results - in 3-5 years if polyps are adenomatous and 10 years if polyps are hyperplastic. Above findings were reviewed with the patient and H Pylori, colon polyps and diverticulosis handouts were given in the discharge are BIOPSY Received: 03/31/23 Diagnosis A. Stomach, antral nodule, biopsy: - Antral-type mucosa with mild chronic, focally active, inflammation and regenerative changes. - Rare forms consistent with H. pylori identified. B. Stomach, body, biopsy: - Oxyntic mucosa with severe chronic active inflammation. - Positive for H pylori. C. Cecum, polypectomies: Fragments of sessile serrated lesions/polyps with thermal artifact; negative for cytologic dysplasia. D. Colon, ascending, polypectomy: Inflammatory polyp with background mild surface hyperplastic changes. E. Colon, sigmoid ulcer, biopsy: Mildly active colitis SUSCEPT, ANTIMICROBIAL HELICOBACTER PYLORI,VALENTINO AMOXICILLIN 0.125 S CLARITHROMYCIN >=256 R LEVOFLOXACIN >=32 R METRONIDAZOLE 0.125 S TETRACYCLINE 0.032 S Assessment & Plan Assessment & Plan (1) Tubular adenoma of colon: Code(s): D12.6 - Benign neoplasm of colon, unspecified (2) Family history of polyps in the colon: Comment: Father of ? stomach vs CRC, patient's last scope 2017 repeat 2021 Code(s): Z83.71 - Family history of colonic polyps (3) H. pylori infection: Comment: Sent for allergy testing and NOT allergic to PCN., She has failed every known treatment Prevpac, Helidac, Levaquin a/amoxicillin, Rifabutin/ amoxicillin. At this time will managing her symptoms since we have been unable to eradicate this resistant microbe. There was 1 antibiotics did not tolerate I am uncertain if it was rifabutin Code(s): A04.8 - Other specified bacterial intestinal infections (4) Colitis: Code(s): K52.9 - Noninfective gastroenteritis and colitis, unspecified (5) GERD (gastroesophageal reflux disease): Code(s): K21.9 - Gastro-esophageal reflux disease without esophagitis (6) Erosive gastritis: Code(s): K29.60 - Other gastritis without bleeding Plan SHE SPEAKS MACEDONIAN. Shanika tells me that she had some diarrhea and rectal bleeding for couple of days after the procedure. Makes sense in lieu of the finding of some active colitis in the sigmoid area. I informed her that we did take out polyps but that was not my biggest concern, I was more concerned that we further investigate this colitis since we did not have any findings that were similar on her last colonoscopy in 2017. Since she has had diarrhea that comes and goes mysteriously I think we need to rule out inflammatory bowel disease which can run exacerbating remitting course and be difficult to diagnose. I educate her about this and the fact that I will need more stool studies and some blood work and she is agreeable to this. She is also agreeable to a 5 year follow-up due to the polyps. The procedure was well tolerated. The results were explained and the patient is agreeable to the follow-up interval as stated. The bowel pattern has returned to normal. Education was provided to tell any 1st degree relatives about their findings to be sure that they are screened by age 45. Educated that they will be put on a recall list when it is time for their repeat scope but should they move out of state or away from the hospital they will need to remember along with their primary to repeat the procedure in a timely fashion to avoid any adverse complications. I tell her that the H pylori is still very active and in fact has caused somewhat of an ulcer in her stomach. Because of this I think we should try again to treat her even though we were uncertain which medications she did not tolerate in the past. The only medical regimen that will likely be successful would be doxycycline (tetracycline)/Flagyl since the bacteria via biopsy/culture is resistant to Levaquin and amoxicillin and clarithromycin. I want her to take just 1 antibiotic for 2 weeks at a time and then immediately begin the neck so if there is a reaction will know which is giving her the trouble. She also was thoroughly counseled not to drink any alcohol or use any qiio-zhg-gchbjle cough syrup that would have an alcohol base in order to avoid disulfiram reaction with the Flagyl. She is able to repeat verbalize understanding. The last time I treated her she also had oral Farida so will need to give her some Diflucan to prevent this. She continues on her rabeprazole 20 mg twice a day, and has used Carafate on an off her diarrhea but currently is not utilizing this. At point I think will return office visit in 6 weeks is appropriate to give her time to complete the H pylori therapy and get the stool samples in. She has currently not having diarrhea but again this is been transient in nature. Orders: Orders [facility] SGI Today A04.8 - Other specified bacterial intestinal infections, D12.6 - Benign neoplasm of colon, unspecified, K21.9 - Gastro-esophageal reflux disease without esophagitis, K52.9 - Noninfective gastroenteritis and colitis, unspecified [facility] Today A04.8 - Other specified bacterial intestinal infections, D12.6 - Benign neoplasm of colon, unspecified, K21.9 - Gastro-esophageal reflux disease without esophagitis, K52.9 - Noninfective gastroenteritis and colitis, unspecified GI Panel Today K52.9 - Noninfective gastroenteritis and colitis, unspecified C Reactive Protein Today A04.8 - Other specified bacterial intestinal infections, D12.6 - Benign neoplasm of colon, unspecified, K21.9 - Gastro-esophageal reflux disease without esophagitis, K52.9 - Noninfective gastroenteritis and colitis, unspecified Calprotectin, Fecal Today A04.8 - Other specified bacterial intestinal infections, D12.6 - Benign neoplasm of colon, unspecified, K21.9 - Gastro-esophageal reflux disease without esophagitis, K52.9 - Noninfective gastroenteritis and colitis, unspecified Medications: New metronidazole 1,000 mg (2 x 500 mg) PO BID 14 days 56 tabs 0RF doxycycline hyclate 100 mg PO BID 14 days 28 tabs 0RF A04.8 - Other specified bacterial intestinal infections, K29.60 - Other gastritis without bleeding bismuth subsalicylate (Bismuth) 2 tabs PO QID 14 days 112 tabs 0RF fluconazole (Diflucan) 200 mg PO DAILY 14 tabs 0RF Coding Level of Care Code Est Pt Level 4 (41682) Diagnoses Tubular adenoma of colon D12.6 Family history of polyps in the colon Z83.71 H. pylori infection A04.8 Colitis K52.9 GERD (gastroesophageal reflux disease) K21.9 Erosive gastritis K29.60 Time Spent (min) 41
[2023-05-09 15:04] VITALS: BP 117/63; PULSE 79; BMI 30.4
== END 2023-05-09 15:40 | disposition home or self-care (01) ==
PROVIDERS: PCP Internal Medicine; Visit Provider Nurse Practitioner
DX: D12.6 Benign neoplasm of colon, unspecified (principal); Z83.71 Family history of colonic polyps; A04.8 Other specified bacterial intestinal infections; K52.9 Noninfective gastroenteritis and colitis, unspecified; K21.9 Gastro-esophageal reflux disease without esophagitis; K29.60 Other gastritis without bleeding
CPT/HCPCS: 99214

== ENCOUNTER → 2023-05-09 14:38 | Outpatient (BNVA) | payer OTHER, SELFPAY | PROVIDERS: PCP Internal Medicine; Visit Provider Nurse Practitioner ==

== ENCOUNTER 2023-06-03 08:54 | Outpatient (REF) | payer OTHER, SELFPAY ==
[2023-06-12 02:08] LABS: Calprotectin, Fecal 171 mcg/g
== END 2023-06-03 08:55 | disposition home or self-care (01) ==
LOC: HO.LNP 08:54
PROVIDERS: Visit Provider Nurse Practitioner
DX: K52.9 Noninfective gastroenteritis and colitis, unspecified (principal); D12.6 Benign neoplasm of colon, unspecified; K21.9 Gastro-esophageal reflux disease without esophagitis; A04.8 Other specified bacterial intestinal infections
CPT/HCPCS: 83993; 87507

== ENCOUNTER 2023-06-20 14:58 | Outpatient (REF) | payer OTHER, SELFPAY ==
[2023-06-20 18:06] LABS: C Reactive Protein 0.65 mg/dL (< or = 0.50)
== END 2023-06-20 14:59 | disposition home or self-care (01) ==
LOC: HO.LAB 14:58
PROVIDERS: PCP Internal Medicine; Visit Provider Nurse Practitioner
DX: K52.9 Noninfective gastroenteritis and colitis, unspecified (principal); D12.6 Benign neoplasm of colon, unspecified; K21.9 Gastro-esophageal reflux disease without esophagitis; A04.8 Other specified bacterial intestinal infections; K29.60 Other gastritis without bleeding
CPT/HCPCS: 36415; 81335; 81479; 82397; 83520; 86140; 88346; 88350

== ENCOUNTER 2023-06-20 14:58 | Outpatient (AMB) | payer OTHER, SELFPAY ==
--- NOTE | 2023-06-20 15:04 | A.OFFVIS_ITS ---
Intake Vital Signs 06/20/23 15:14 Height 5 ft 1 in Weight 161 lb 6.054 oz BMI 30.5 BP 126/60 Blood Pressure Location Lt brachial Position Sitting Pulse 82 Intake Visit Reasons: 6 week follow up Intake Note: Shanika presents in the office as a 6 week follow up. CC: ABX made her sick to her stomach and severe diarrhea so she stopped taking them - she took them for 2.5 days and stopped. 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 stomach vs CRC, patient's last scope 2016 repeat 2021 Code(s): Z83.71 - Family history of colonic polyps (3) H. pylori infection: Comment: Sent for allergy testing and NOT allergic to PCN., She has failed every known treatment Prevpac, Helidac, Levaquin a/amoxicillin, Rifabutin/ amoxicillin. At this time will managing her symptoms since we have been unable to eradicate this resistant microbe. There was 1 antibiotics did not tolerate I am uncertain if it was rifabutin Code(s): A04.8 - Other specified bacterial intestinal infections (4) Colitis: Code(s): K52.9 - Noninfective gastroenteritis and colitis, unspecified (5) GERD (gastroesophageal reflux diseas e): Code(s): K21.9 - Gastro-esophageal reflux disease without esophagitis (6) Erosive gastritis: Code(s): K29.60 - Other gastritis without bleeding Plan SHE SPEAKS SAUDI ARABIAN. Shanika tells me that she had some diarrhea and rectal bleeding for couple of days after the procedure. Makes sense in lieu of the finding of some active colitis in the sigmoid area. I informed her that we did take out polyps but that was not my biggest concern, I was more concerned that we further investigate this colitis since we did not have any findings that were similar on her last colonoscopy in 2017. Since she has had diarrhea that comes and goes mysteriously I think we need to rule out inflammatory bowel disease which can run exacerbating remitting course and be difficult to diagnose. I educate her about this and the fact that I will need more stool studies and some blood work and she is agreeable to this. She is also agreeable to a 5 year follow-up due to the polyps. The procedure was well tolerated. The results were explained and the patient is agreeable to the follow-up interval as stated. The bowel pattern has returned to normal. Education was provided to tell any 1st degree relatives about their findings to be sure that they are screened by age 45. Educated that they will be put on a recall list when it is time for their repeat scope but should they move out of state or away from the hospital they will need to remember along with their primary to repeat the procedure in a timely fashion to avoid any adverse complications. I tell her that the H pylori is still very active and in fact has caused somewhat of an ulcer in her stomach. Because of this I think we should try aga in to treat her even though we were uncertain which medications she did not tolerate in the past. The only medical regimen that will likely be successful would be doxycycline (tetracycline)/Flagyl since the bacteria via biopsy/culture is resistant to Levaquin and amoxicillin and clarithromycin. I want her to take just 1 antibiotic for 2 weeks at a time and then immediately begin the neck so if there is a reaction will know which is giving her the trouble. She also was thoroughly counseled not to drink any alcohol or use any [id number] cough syrup that would have an alcohol base in order to avoid disulfiram reaction with the Flagyl. She is able to repeat verbalize understanding. The last time I treated her she also had oral Farida so will need to give her some Diflucan to prevent this. She continues on her rabeprazole 20 mg twice a day, and has used Carafate on an off her diarrhea but currently is not utilizing this. At point I think will return office visit in 6 weeks is appropriate to give her time to complete the H pylori therapy and get the stool samples in. She has currently not having diarrhea but again this is been transient in nature. Orders: Orders [facility] SGI Today A04.8 - Other spec ified bacterial in testinal infection s, D12.6 - Benign neoplasm of colon, unspecified, K21. 9 - Gastro-esophag eal reflux disease without esophagit is, K52.9 - Noninf ective gastroenter itis and colitis, unspecified [facility] TPMT Ge netics Today A04.8 - Other spec ified bacterial in testinal infection s, D12.6 - Benign neoplasm of colon, unspecified, K21. 9 - Gastro-esophag eal reflux disease without esophagit is, K52.9 - Noninf ective gastroenter itis and colitis, unspecified GI Panel Today K52.9 - Noninfecti ve gastroenteritis and colitis, unsp ecified C Reactive Protein Today A04.8 - Other spec ified bacterial in testinal infection s, D12.6 - Benign neoplasm of colon, unspecified, K21. 9 - Gastro-esophag eal reflux disease without esophagit is, K52.9 - Noninf ective gastroenter itis and colitis, unspecified Calprotectin, Feca l Today A04.8 - Other spec ified bacterial in testinal infection s, D12.6 - Benign neoplasm of colon, unspecified, K21. 9 - Gastro-esophag eal reflux disease without esophagit is, K52.9 - Noninf ective gastroenter itis and colitis, unspecified Medications: New metronidazole 1,000 mg (2 x 500 mg) PO BID 14 days 56 tabs 0RF doxycycline hyclat e 100 mg PO BID 14 days 28 tabs 0RF A04.8 - Other spec ified bacterial in testinal infection s, K29.60 - Other gastritis without bleeding bismuth subsalicyl ate (Bismuth) 2 tabs PO QID 14 days 112 tabs 0RF fluconazole (Diflu can) 200 mg PO DAILY 1 4 tabs 0RF LABS: Laboratory Tests 06/03/23 06:20 Stool Calprotectin 171 H The GI panel, CRP, and [facility] studies appear to not have been obtained TODAY'S VISIT SHE SPEAKS SAUDI [place]AB[place]. She started the HP tx with the doxy and it caused N/V/D and stomach pain so she only took 3 days. She never took the other one. We will let her stomach rest before considering another tx. Fortunately she is not allergic to amoxicillin so we have other treatment options. Her stomach burning and GERD is better controlled on the aciphex. I also will give her back the carafate for her intermittent diarrhea and HP sx tx. She will go to have the blood work. ROV 6 weeks. [facility] Medical History Encounter for general adult medical examination with abnormal findings Erosive gastritis GERD (gastroesophageal reflux disease) Encounter to discuss test results Well woman exam with routine gynecological exam Impaired fasting blood sugar Herpes simplex antibody positive Difficulty sleeping Obesity Surgical History History of endoscopy History of esophagogastroduodenoscopy (EGD) Hx of colonoscopy History of radical nephrectomy History of hysteroscopy Hx of cholecystectomy Breast mass, right History of tubal ligation Family History Father Stomach cancer Mother HTN (hypertension) Diabetes mellitus High cholesterol CVD (cardiovascular disease) Maternal Aunt Breast cancer Other Mental health disorder Substance use disorder Social History Housing: House Alcohol intake: never Patient Tobacco Use Status: Never used Tobacco Current occupational status: employed 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 Gender identity: Female Cognitive needs: No Hearing needs: Yes Vision needs: No Female Reproductive History Menstrual Age of Menarche: 11 Review of Systems Const Denies fatigue, Denies fever(s), Denies night sweats, Denies poor appetite and Denies weight loss ENT Reports Normal hearing present, Denies dental pain, Denies dysphagia, Denies hearing loss, Denies mouth pain, Denies odynophagia, Denies throat swelling, Denies tongue swelling and Reports other (Dentition adequate) Card Reports no additional complaints Resp Reports no additional complaints GI Details: Reports abdominal pain, Denies melena, Denies bloating, Denies hematochezia, Denies constipation, Denies GI cramping, Denies dysphagia, Denies excessive flatus, Denies early satiety, Reports dyspepsia, Reports heartburn, Reports diarrhea, Reports nausea, Denies odynophagia, Reports vomiting and Denies hematemesis Skin/Breast Denies pruritus, Denies lesions, Denies rash and Denies jaundice Neuro Reports Normal hearing present and Denies Abnormal speech present Endo Denies fatigue Aller/Immun Denies throat swelling and Denies tongue swelling Physical Exam Vital Signs: Last Vital Signs Pulse 82 06/20/23 15:14 BP 126/60 06/20/23 15:14 BMI result Body Mass Index 30.5 Const General: cooperative, no acute distress, well developed and well groomed Nutritional Appearance: well nourished and overweight Orientation/consciousness: oriented to person, oriented to place and oriented to time Limitations: No language barrier HEENT Head: Yes normocephalic and Yes atraumatic Eyes General: appearance normal, both eyes and all related structures Pupils: Equal, round and reactive pupils present Neck Neck: Yes normal visual inspection and Yes no lymphadenopathy Thyroid: Thyroid normal Resp Effort & Inspection: normal respiratory effort and able to speak in complete sentences Auscultation: clear to auscultation bilaterally Cardio Rate: regular rate Rhythm: regular rhythm Heart sounds: Normal, physiologic split S2 sound present Peripheral pulses: radial pulses present and posterior tibial pulses present GI Inspection: No distended, No Abdominal panniculus present and Yes obesity Palpation (GI): Soft to palpation, nontender, no guarding, not rigid and No hepatosplenomegaly present Percussion: Yes normal to percussion Auscultation: normal bowel sounds Rectal Exam - Female: deferred Skin General skin exam: no rashes or lesions noted, turgor normal, skin not dry, no jaundice, No spider nevi and no striae Rashes: no rashes Nails: normal Neuro General: oriented to person, oriented to place and oriented to time Cranial nerves: Yes Equal, round and reactive pupils present and Yes Normal hearing present Speech: No Abnormal speech present Extrem General: Yes normal to inspection, No clubbing, No cyanosis and No edema Psych Appearance: grossly normal and well kempt Mental Status: mental status grossly normal Speech and movement: Normal speech and movement present Affect: normal affect Attitude: cooperative Thought process: Normal thought process present and not confabulating Thought content: Normal thought content present Insight: Limited insight present (Psych) Judgement: Limited judgement present (Psych) Assessment & Plan Assessment & Plan (1) Tubular adenoma of colon: Code(s): D12.6 - Benign neoplasm of colon, unspecified (2) Colitis: Code(s): K52.9 - Noninfective gastroenteritis and colitis, unspecified (3) GERD (gastroesophageal reflux disease): Code(s): K21.9 - Gastro-esophageal reflux disease without esophagitis (4) Erosive gastritis: Code(s): K29.60 - Other gastritis without bleeding (5) H. pylori infection: Comment: Sent for allergy testing and NOT allergic to PCN., She has failed every known treatment Prevpac, Helidac, Levaquin a/amoxicillin, Rifabutin/ amoxicillin. At this time will managing her symptoms since we have been unable to eradicate this resistant microbe. There was 1 antibiotics did not tolerate I am uncertain if it was rifabutin Code(s): A04.8 - Other specified bacterial intestinal infections Plan SHE SPEAKS SAUDI ARAB[place]. She started the HP tx with the doxy and it caused N/V/D and stomach pain so she only took 3 days. She never took the other one. We will let her stomach rest before considering another tx. Fortunately she is not allergic to amoxicillin so we have other treatment options. Her stomach burning and GERD is better controlled on the aciphex. I also will give her back the carafate for her intermittent diarrhea and HP sx tx. She will go to have the blood work. ROV 6 weeks. Medications: New sucralfate (Carafate) 1 g PO BID 60 tabs 6RF Coding Level of Care Code Est Pt Level 3 (59550) Diagnoses Tubular adenoma of colon D12.6 Colitis K52.9 GERD (gastroesophageal reflux disease) K21.9 Erosive gastritis K29.60 H. pylori infection A04.8
[2023-06-20 15:14] VITALS: BP 126/60; PULSE 82; BMI 30.5
== END 2023-06-20 15:50 | disposition home or self-care (01) ==
PROVIDERS: PCP Internal Medicine; Visit Provider Nurse Practitioner
DX: D12.6 Benign neoplasm of colon, unspecified (principal); K52.9 Noninfective gastroenteritis and colitis, unspecified; K21.9 Gastro-esophageal reflux disease without esophagitis; K29.60 Other gastritis without bleeding; A04.8 Other specified bacterial intestinal infections
CPT/HCPCS: 99213

== ENCOUNTER 2023-07-08 06:54 | Outpatient (REF) | payer OTHER, SELFPAY | END 2023-07-08 06:55 | disposition home or self-care (01) | LOC: HO.LAB 06:54 | PROVIDERS: PCP Internal Medicine; Visit Provider Nurse Practitioner | DX: K52.9 Noninfective gastroenteritis and colitis, unspecified (principal); D12.6 Benign neoplasm of colon, unspecified; A04.8 Other specified bacterial intestinal infections; K21.9 Gastro-esophageal reflux disease without esophagitis | CPT/HCPCS: 36415; 81405; 81479; 82397; 83520; 86140; 88346; 88350 ==

== ENCOUNTER 2023-08-22 15:55 | Outpatient (AMB) | payer OTHER, SELFPAY ==
--- NOTE | 2023-08-22 15:57 | MHC.OFFVIS ---
Vital Signs 08/22/23 15:59 Height 5 ft 1 in Weight 161 lb 6.054 oz BMI 30.5 BP 124/68 Blood Pressure Location Lt brachial Position Sitting Pulse 64 Intake Visit Reasons: 6 week follow up Intake Note: Patient in office today in 6 weeks follow up of labs. CC: She reports doing well and denies having any new GI symptoms. 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 Accompanied by: Self / Same As Patient Allergies bee pollen [BEE STINGS] Allergy (Unknown, Verified 06/20/23 15:18) SWELLING From PERCOCET Adverse Reaction (Unknown, Uncoded 06/20/23 15:18) NAUSEA & VOMITING HPI HPI 6 week follow up: Details: Assessment & Plan (1) Tubular adenoma of colon: Code(s): D12.6 - Benign neoplasm of colon, unspecified (2) Colitis: Code(s): K52.9 - Noninfective gastroenteritis and colitis, unspecified (3) GERD (gastroesophageal reflux disease): Code(s): K21.9 - Gastro-esophageal reflux disease without esophagitis (4) Erosive gastritis: Code(s): K29.60 - Other gastritis without bleeding (5) H. pylori infection: Comment: Sent for allergy testing and NOT allergic to PCN., She has failed every known treatment Prevpac, Helidac, Levaquin a/amoxicillin, Rifabutin/ amoxicillin. At this time will managing her symptoms since we have been unable to eradicate this resistant microbe. There was 1 antibiotics did not tolerate I am uncertain if it was rifabutin Code(s): A04.8 - Other specified bacterial intestinal infections Plan SHE SPEAKS [place]. She started the HP tx with the doxy and it caused N/V/D and stomach pain so she only took 3 days. She never took the other one. We will let her stomach rest before considering another tx. Fortunately she is not allergic to amoxicillin so we have other treatment options. Her stomach burning and GERD is better controlled on the aciphex. I also will give her back the carafate for her intermittent diarrhea and HP sx tx. She will go to have the blood work. ROV 6 weeks. Medications: New sucralfate (Carafate) 1 g PO BID 60 tabs 6RF CORRESPONDENCE On 06/27/23 @ 15:18 Jonathan Le Wrote To Justine Perez These reports are scanned by the lab. They scanned IBD SGI report on 06/24 but report states only whole blood was received, serum was also required. Patient needs to have this test redone. I called Pt and LVM letting her know she needs to have lab re drawn. On 06/27/23 @ 14:58 Justine Perez Wrote To Jonathan Le You only scanned the TMP T results there is also a genetic study from [employer] that needs to be scan. Please see if you can find this as well. On 06/27/23 @ 07:19 System Wrote To Justine Perez Results added. Task updated. On 06/20/23 @ 18:06 System Wrote To Justine Perez Results added. Task updated. LABS [facility] REPORT IS NOT CONSISTENT WITH INFLAMMATORY BOWEL DISEASE. Laboratory Tests 06/03/23 06/20/23 06:20 16:00 C-Reactive Protein 0.65 H Stool Calprotectin 171 H TODAY'S VISIT SHE SPEAKS [place]UV[place]. SHE CONTINUES ON ACIPHEX, Carafate, With this all of her GI sx are well controlled. We again discussed HP and the risks of non eradication. IBD studies really inconclusive. Consider 3 year repeat scope and keep eye on new abx. ROV 6 mos. PFSH Medical History (Updated 08/22/23 @ 16:09 by DENISE Dey) Colitis Pelvic pain in female Fibroids Vaginal dryness Candidiasis of mouth and esophagus Encounter for general adult medical examination with abnormal findings Erosive gastritis GERD (gastroesophageal reflux disease) Encounter to discuss test results Well woman exam with routine gynecological exam Impaired fasting blood sugar Herpes simplex antibody positive Difficulty sleeping Obesity Surgical History History of endoscopy History of esophagogastroduodenoscopy (EGD) Hx of colonoscopy History of radical nephrectomy History of hysteroscopy Hx of cholecystectomy Breast mass, right History of tubal ligation Family History Father Stomach cancer Mother HTN (hypertension) Diabetes mellitus High cholesterol CVD (cardiovascular disease) Maternal Aunt Breast cancer Other Mental health disorder Substance use disorder Social History Housing: House Alcohol intake: never Patient Tobacco Use Status: Never used Tobacco Current occupational status: employed 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 Gender identity: Female Cognitive needs: No Hearing needs: Yes Vision needs: No Female Reproductive History Menstrual Age of Menarche: 11 Review of Systems Const Denies fatigue, Denies fever(s), Denies night sweats, Denies poor appetite and Denies weight loss ENT Reports Normal hearing present, Denies dental pain, Denies dysphagia, Denies hearing loss, Denies mouth pain, Denies odynophagia, Denies throat swelling, Denies tongue swelling and Reports other (Dentition adequate) Card Reports no additional complaints Resp Reports no additional complaints GI Details: Denies abdominal pain, Denies melena, Denies bloating, Denies hematochezia, Denies constipation, Denies GI cramping, Denies dysphagia, Denies excessive flatus, Denies early satiety, Reports heartburn, Reports diarrhea, Denies nausea, Denies odynophagia, Denies vomiting and Denies hematemesis Skin/Breast Denies pruritus, Denies lesions, Denies rash and Denies jaundice Neuro Reports Normal hearing present and Denies Abnormal speech present Endo Denies fatigue Aller/Immun Denies throat swelling and Denies tongue swelling Physical Exam Vital Signs: Last Vital Signs Pulse 64 08/22/23 15:59 BP 124/68 08/22/23 15:59 BMI result Body Mass Index 30.5 Const General: cooperative, no acute distress, well developed and well groomed Nutritional Appearance: well nourished and obese Orientation/consciousness: oriented to person, oriented to place and oriented to time Limitations: No language barrier HEENT Head: Yes normocephalic and Yes atraumatic Eyes General: appearance normal, both eyes and all related structures Pupils: Equal, round and reactive pupils present Neck Neck: Yes normal visual inspection and Yes no lymphadenopathy Thyroid: Thyroid normal Resp Effort & Inspection: normal respiratory effort and able to speak in complete sentences Auscultation: clear to auscultation bilaterally Cardio Rate: regular rate Rhythm: regular rhythm Heart sounds: Normal, physiologic split S2 sound present Peripheral pulses: radial pulses present and posterior tibial pulses present GI Inspection: No distended, Yes Abdominal panniculus present and Yes obesity Palpation (GI): Soft to palpation, nontender, no guarding, not rigid and No hepatosplenomegaly present Percussion: Yes normal to percussion Auscultation: normal bowel sounds Rectal Exam - Female: deferred Skin General skin exam: no rashes or lesions noted, turgor normal, skin not dry, no jaundice, No spider nevi and no striae Rashes: no rashes Nails: normal Neuro General: oriented to person, oriented to place and oriented to time Cranial nerves: Yes Equal, round and reactive pupils present and Yes Normal hearing present Speech: No Abnormal speech present Extrem General: Yes normal to inspection, No clubbing, No cyanosis and No edema Psych Appearance: grossly normal and well kempt Mental Status: mental status grossly normal Speech and movement: Normal speech and movement present Affect: normal affect Attitude: cooperative Thought process: Normal thought process present and not confabulating Thought content: Normal thought content present Insight: Fair insight present (Psych) Judgement: Fair judgement present (Psych) Assessment & Plan Assessment & Plan (1) GERD (gastroesophageal reflux disease): Code(s): K21.9 - Gastro-esophageal reflux disease without esophagitis Category: Medical (2) Erosive gastritis: Code(s): K29.60 - Other gastritis without bleeding Category: Medical (3) Family history of polyps in the colon: Comment: 2022 scope= TA and aphthous ulcers repeat in 3-5 years; Father of ? stomach vs CRC, patient's last scope 2017 repeat 2021 Code(s): Z83.71 - Family history of colonic polyps Category: Medical (4) H. pylori infection: Comment: Sent for allergy testing and NOT allergic to PCN., She has failed every known treatment Prevpac, Helidac, Levaquin a/amoxicillin, Rifabutin/ amoxicillin. At this time will managing her symptoms since we have been unable to eradicate this resistant microbe. There was 1 antibiotics did not tolerate I am uncertain if it was rifabutin Code(s): A04.8 - Other specified bacterial intestinal infections Category: Medical (5) Colitis: Comment: IBD studies negative, but fecal calprotectin and CRP elevated, aphthous ulcers on 2022 colonoscopy Code(s): K52.9 - Noninfective gastroenteritis and colitis, unspecified Category: Medical Plan SHE SPEAKS [place]UVIAN. SHE CONTINUES ON ACIPHEX, Carafate, With this all of her GI sx are well controlled. We again discussed HP and the risks of non eradication. IBD studies really inconclusive. Consider 3 year repeat scope and keep eye on new abx. ROV 6 mos. Medications: Refilled rabeprazole 20 mg PO BID 30 days 60 tabs 6RF A04.8 - Other specified bacterial intestinal infections, K21.9 - Gastro-esophageal reflux disease without esophagitis, K29.60 - Other gastritis without bleeding sucralfate (Carafate) 1 g PO BID 60 tabs 6RF Discontinued metronidazole Discontinued Reason: Patient Completed Course 1,000 mg (2 x 500 mg) PO BID 14 days 56 tabs 0RF doxycycline hyclate Discontinued Reason: Patient Completed Course 100 mg PO BID 14 days 28 tabs 0RF A04.8 - Other specified bacterial intestinal infections, K29.60 - Other gastritis without bleeding bismuth subsalicylate (Bismuth) Discontinued Reason: Patient Completed Course 2 tabs PO QID 14 days 112 tabs 0RF fluconazole (Diflucan) Discontinued Reason: Patient Completed Course 200 mg PO DAILY 14 tabs 0RF Coding Level of Care Code Est Pt Level 3 (48145) Diagnoses GERD (gastroesophageal reflux disease) K21.9 Erosive gastritis K29.60 Family history of polyps in the colon Z83.71 H. pylori infection A04.8 Colitis K52.9
[2023-08-22 15:59] VITALS: BP 124/68; PULSE 64; BMI 30.5
== END 2023-08-22 16:52 | disposition home or self-care (01) ==
PROVIDERS: PCP Internal Medicine; Visit Provider Nurse Practitioner
DX: K21.9 Gastro-esophageal reflux disease without esophagitis (principal); K29.60 Other gastritis without bleeding; Z83.719 Family history of colon polyps, unspecified; A04.8 Other specified bacterial intestinal infections; K52.9 Noninfective gastroenteritis and colitis, unspecified
CPT/HCPCS: 99213

== ENCOUNTER → 2023-08-22 15:55 | Outpatient (BNVA) | payer OTHER, SELFPAY | PROVIDERS: PCP Internal Medicine; Visit Provider Nurse Practitioner ==

== ENCOUNTER 2023-11-07 13:39 | Outpatient (AMB) | payer OTHER, SELFPAY ==
[2023-11-07 13:44] VITALS: BP 140/96; BMI 30.1
--- NOTE | 2023-11-07 13:44 | A.OFFPC_ITS ---
Vital Signs 3 11/07/23 13:44 Height 5 ft 1 in Weight 159 lb 8 oz BMI 30.1 BP 140/96 H Blood Pressure Location Lt brachial Intake Visit Reasons: Annual PE Allergies bee pollen [BEE STINGS] Allergy (Unknown, Verified 11/07/23 13:46) SWELLING From PERCOCET Adverse Reaction (Unknown, Uncoded 06/20/23 15:18) NAUSEA & VOMITING Medication List - Last Reconciled 11/07/23 by Emilio Magaña MD cinnamon bark (Cinnamon) 1,000 mg PO DAILY hydrocortisone 2.5% topical ketoconazole 2% 1 appl topical DAILY PRN mirtazapine 15 mg PO BEDTIME PRN [omega 3 fish oil PO] rabeprazole 20 mg PO BID 30 days sucralfate (Carafate) 1 g PO BID valacyclovir 2,000 mg PO BID PRN Tobacco use date assessed: 11/07/23 Dental Screening Dental Screen Date: 11/07/23 Did you have a dental visit in the last 12 months?: Yes Did you have a dental problem in the last 6 months where you did not have access to dental care?: No Was dental information given to patient?: Patient has dentist HPI Annual PE 2 HPI0 Details Patient is a 58-year-old female came in today for physical examination Mammogram is up-to-date Colonoscopy up-to-date OBGYN visit up-to-date Patient have a single kidney, she was taking Topamax for migraine prevention Her headaches got better and she stopped taking it Tells me that headaches are back and she would like to start medication again but she is reluctant to take Topamax Instead I have sent amitriptyline 25 mg, patient was instructed to stop taking mirtazapine. Fasting lab order placed She is having lower back pain since 22 of October Patient says that she gets that pain off and on but this time it is not getting better I have ordered bone density scan for the patient she is due for mammogram in February she will have that done as well X-ray lumbar spine ordered as well BMI is elevated need to lose weight [facility] Medical History Encounter for general adult medical examination with abnormal findings Colitis Pelvic pain in female Fibroids Vaginal dryness Candidiasis of mouth and esophagus Erosive gastritis GERD (gastroesophageal reflux disease) Encounter to discuss test results Well woman exam with routine gynecological exam Impaired fasting blood sugar Herpes simplex antibody positive Difficulty sleeping Obesity Surgical History History of endoscopy History of esophagogastroduodenoscopy (EGD) Hx of colonoscopy History of radical nephrectomy History of hysteroscopy Hx of cholecystectomy Breast mass, right History of tubal ligation Family History Father Stomach cancer Mother HTN (hypertension) Diabetes mellitus High cholesterol CVD (cardiovascular disease) Maternal Aunt Breast cancer Other Mental health disorder Substance use disorder Social History Housing: House Alcohol intake: never Patient Tobacco Use Status: Never used Tobacco e-Cigarette/Vaping Use: Never Used service: No Current occupational status: employed 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 1. Little interest or pleasure in doing things: not at all 2. Feeling down, depressed, or hopeless: not at all 3. Trouble falling or staying asleep, or sleeping too much: not at all 4. Feeling tired or having little energy: not at all 5. Poor appetite or overeating: not at all 6. Feeling bad about yourself - or that you are a failure or have let yourself or your family down: not at all 7. Trouble concentrating on things, such as reading the newspaper or watching television: not at all 8. Moving or speaking so slowly that other people could have noticed. Or the opposite - being so fidgety or restless that you have been moving around a lot more than usual: not at all 9. Thoughts that you would be better off or of hurting yourself in some way: not at all Total score: 0 Depression Screening Interpretation: Negative Depression Screening Done: Yes 87211 - PHQ-9 Billing: Yes Source: Developed by Drs. Everton Calderón, Jane Spears, Romel Damon and colleagues, with an educational haja from [employer]. Thrive Questionnaire Date Thrive assessed: 11/07/23 I am a: Patient What is your living situation today?: I have a steady place to live Within the past 12 months, did the food you bought not last and you didn't have the money to get more?: Never true Within the past 12 months, did you worry whether your food would run out before you got money to buy more?: Never true Do you have trouble paying for medicines?: No Do you have trouble getting transportation to medical appointments?: No Do you have trouble paying your heating and electricity bill?: No Do you have trouble taking care of your child, family member or friend?: No Do you have trouble with day-to-day activities such as bathing, preparing meals, shopping, managing finances, etc.?: No Are you currently unemployed and looking for a job?: No Are you interested in more education?: No Please select the resources that you would like help with: None Currently or been in a relationship where the following occur: No concerns reported THRIVE Score: 0 AUDIT C Alcohol Use Questionnaire (AUDIT-C) 1. How often do you have a drink containing alcohol?: Never 3. How often do you have six or more drinks on one occasion?: Never Total Score: 0 Score Reviewed/Action Taken: Yes MARY-7 AMB Questionnaire MARY-7 Date MARY - 7 assessed: 11/07/23 Feeling nervous, anxious, or on edge: 0 = Not at all Not being able to stop or control worryin = Not at all Worrying too much about different things: 0 = Not at all Trouble relaxin = Not at all Being so restless that it is hard to sit still: 0 = Not at all Becoming easily annoyed or irritable: 0 = Not at all Feeling afraid as if something awful might happen: 0 = Not at all Total MARY-7 score (0-4 normal; 5-9 mild; 10-14 moderate; 15-21 severe): 0 Source: Developed by Drs. Everton Calderón, Jane Spears, Romel Damon and colleagues, with an educational haja from [employer]. MARY-7 Assessment Billing MARY-7 Assessment Tool: MARY-7 Assessment 39629 Review of Systems Const Denies chills, Denies fever(s) and Denies headache(s) Eyes Denies blurry vision ENT Denies headache(s), Denies nasal discharge, Denies nasal obstruction, Denies odynophagia and Denies sinus pain Card Denies chest pain at rest and Denies chest pain with activity Resp Denies cough and Denies hemoptysis GI Denies diarrhea, Denies odynophagia, Denies vomiting and Denies hematemesis Reports as per HPI Musc Denies abnormal gait Skin/Breast Reports as per HPI Neuro Denies Neuro-related abnormal movements, Denies Abnormal speech present, Denies abnormal gait, Denies headache(s) and Denies Sensory deficit (Neuro) Psych Denies mood swings and Denies paranoia Endo Reports as per HPI Benjamin/Lymph Reports as per HPI Aller/Immun Reports as per HPI Physical exam (Primary Care) Vital Signs: Last Vital Signs BP 140/96 H 11/07/23 13:44 BMI result Body Mass Index 30.1 Tobacco/Smoking Status: Tobacco use Status Tobacco use date assessed 11/07/23 11/07/23 13:48 Patient Tobacco Use Status Never used Tobacco 11/07/23 13:48 e-Cigarette/Vaping Use Never Used 11/07/23 13:48 PHQ-9: PHQ-9 Score PHQ-9: Total score 0 11/07/23 13:48 Depression Screening Interpretation: Negative Thrive Assessment: Date of Thrive Assessment Date Thrive assessed 11/07/23 11/07/23 13:48 Currently or been in a relationship where the following occur: No concerns reported Const General: cooperative, comfortable and no acute distress Orientation/consciousness: patient oriented x3 HENMT Head: Yes normocephalic and Yes atraumatic Eyes General: appearance normal, both eyes and all related structures Pupils: Equal, round and reactive pupils present EOM: EOMs intact bilaterally Neck Neck: Yes supple and No lymphadenopathy Thyroid: Thyroid normal Lymphatic: no lymphadenopathy noted Resp Effort & Inspection: normal respiratory effort and able to speak in complete sentences Auscultation: clear to auscultation bilaterally Cardio Heart sounds: S1 normal heart sound present and S2 normal heart sound present GI Palpation (GI): Soft to palpation and nontender Auscultation: normal bowel sounds General: Yes no CVA tenderness Back/Spine/Pelvis Back: no CVA tenderness Back/spine/pelvis image: 2 1. Site of pain radiating to right hip, straight leg negative bilateral Skin General skin exam: elasticity normal and turgor normal Neuro General: patient oriented x3 and gait normal Cranial nerves: Yes Equal, round and reactive pupils present Speech: No Abnormal speech present Sensory Exam: No Sensory deficit (Neuro) Coordination: tandem gait normal and Romberg test negative Extrem General: Yes normal exam except as noted and No edema Assessment and Plan Assessment & Plan (1) Encounter for general adult medical examination with abnormal findings: Code(s): Z00.01 - Encounter for general adult medical examination with abnormal findings (2) Obesity due to excess calories: Code(s): E66.09 - Other obesity due to excess calories Qualifiers: Obesity classification: adult class 1 (BMI 30 - 34.9) Serious obesity comorbidity presence: without serious comorbidity Body mass index: BMI 30.0- 30.9 Qualified Code(s): E66.09 - Other obesity due to excess calories; Z68.30 - Body mass index [BMI] 30.0-30.9, adult (3) Lipid disorder: Code(s): E78.9 - Disorder of lipoprotein metabolism, unspecified (4) GERD (gastroesophageal reflux disease): Code(s): K21.9 - Gastro-esophageal reflux disease without esophagitis Qualifiers: Esophagitis presence: without esophagitis Qualified Code(s): K21.9 - Gastro-esophageal reflux disease without esophagitis (5) Impaired fasting blood sugar: Code(s): R73.01 - Impaired fasting glucose (6) Difficulty sleeping: Code(s): G47.9 - Sleep disorder, unspecified (7) Migraine headache without aura: Code(s): G43.009 - Migraine without aura, not intractable, without status migrainosus Qualifiers: Status migrainosus presence: without status migrainosus Intractability: not intractable Qualified Code(s): G43.009 - Migraine without aura, not intractable, without status migrainosus (8) Lumbar pain: Code(s): M54.50 - Low back pain, unspecified (9) Menopause: Code(s): Z78.0 - Asymptomatic menopausal state Plan Patient is a 58-year-old female came in today for physical examination Mammogram is up-to-date Colonoscopy up-to-date OBGYN visit up-to-date Patient have a single kidney, she was taking Topamax for migraine prevention Her headaches got better and she stopped taking it Tells me that headaches are back and she would like to start medication again but she is reluctant to take Topamax Instead I have sent amitriptyline 25 mg, patient was instructed to stop taking mirtazapine. Fasting lab order placed She is having lower back pain since 22 of October Patient says that she gets that pain off and on but this time it is not getting better I have ordered bone density scan for the patient she is due for mammogram in February she will have that done as well X-ray lumbar spine ordered as well BMI is elevated need to lose weight Orders: Orders 2 Comprehensive [place]. Panel Fast Today E66.09 - Other obesity due to excess calories, E78.9 - Disorder of lipoprotein metabolism, unspecified, G43.009 - Migraine without aura, not intractable, without status migrainosus, G47.9 - Sleep disorder, unspecified, K21.9 - Gastro-esophageal reflux disease without esophagitis, R73.01 - Impaired fasting glucose, Z00.01 - Encounter for general adult medical examination with abnormal findings Lipid Panel Today E66.09 - Other obesity due to excess calories, E78.9 - Disorder of lipoprotein metabolism, unspecified, G43.009 - Migraine without aura, not intractable, without status migrainosus, G47.9 - Sleep disorder, unspecified, K21.9 - Gastro-esophageal reflux disease without esophagitis, R73.01 - Impaired fasting glucose, Z00.01 - Encounter for general adult medical examination with abnormal findings TSH reflex Free T4 Today E66.09 - Other obesity due to excess calories, E78.9 - Disorder of lipoprotein metabolism, unspecified, G43.009 - Migraine without aura, not intractable, without status migrainosus, G47.9 - Sleep disorder, unspecified, K21.9 - Gastro-esophageal reflux disease without esophagitis, R73.01 - Impaired fasting glucose, Z00.01 - Encounter for general adult medical examination with abnormal findings Hemoglobin A1c Today R73.01 - Impaired fasting glucose XR lumbar spine 2-3V Today M54.50 - Low back pain, unspecified Complete Blood Count Auto Diff Today E66.09 - Other obesity due to excess calories, E78.9 - Disorder of lipoprotein metabolism, unspecified, G43.009 - Migraine without aura, not intractable, without status migrainosus, G47.9 - Sleep disorder, unspecified, K21.9 - Gastro-esophageal reflux disease without esophagitis, R73.01 - Impaired fasting glucose, Z00.01 - Encounter for general adult medical examination with abnormal findings Vitamin D 25-OH (D2 and D3) Today E66.09 - Other obesity due to excess calories, E78.9 - Disorder of lipoprotein metabolism, unspecified, G43.009 - Migraine without aura, not intractable, without status migrainosus, G47.9 - Sleep disorder, unspecified, K21.9 - Gastro-esophageal reflux disease without esophagitis, R73.01 - Impaired fasting glucose, Z00.01 - Encounter for general adult medical examination with abnormal findings XR DEXA axial skeleton Today M54.50 - Low back pain, unspecified, Z78.0 - Asymptomatic menopausal state Medications: New 2 amitriptyline 25 mg PO BEDTIME 30 tabs 0RF 30 days Coding Level of Care Code Est Pt Level 4 (24750) Est Pt Prev Care 40-64y(45337) Diagnoses Encounter for general adult medical examination with abnormal findings Z00.01 Class 1 obesity due to excess calories without serious comorbidity with body mass index (BMI) of 30.0 to 30.9 in adult E66.09; Z68.30 Obesity classification: adult class 1 (BMI 30 - 34.9) Serious obesity comorbidity presence: without serious comorbidity Body mass index: BMI 30.0-30.9 Lipid disorder E78.9 Gastroesophageal reflux disease without esophagitis K21.9 Esophagitis presence: without esophagitis Impaired fasting blood sugar R73.01 Difficulty sleeping G47.9 Migraine without aura and without status migrainosus, not intractable G43.009 Status migrainosus presence: without status migrainosus Intractability: not intractable Lumbar pain M54.50 Menopause Z78.0 Additional Codes MARY-7 Assessment Billing - MARY-7 Assessment Tool: MARY-7 Assessment 97113 ([id number])
== END 2023-11-07 14:10 | disposition home or self-care (01) ==
LOC: HO.HMGC 13:39
PROVIDERS: PCP Internal Medicine; Visit Provider Internal Medicine
DX: Z00.00 Encounter for general adult medical examination without abnormal findings (principal); E78.9 Disorder of lipoprotein metabolism, unspecified; E66.09 Other obesity due to excess calories; Z68.30 Body mass index [BMI] 30.0-30.9, adult; K21.9 Gastro-esophageal reflux disease without esophagitis; R73.01 Impaired fasting glucose; G47.9 Sleep disorder, unspecified; G43.009 Migraine without aura, not intractable, without status migrainosus; M54.50 Low back pain, unspecified; Z78.0 Asymptomatic menopausal state
CPT/HCPCS: 99214; 99396

== ENCOUNTER 2024-02-05 08:26 | Outpatient (AMB) | payer OTHER, SELFPAY ==
--- NOTE | 2024-02-05 08:31 | MHC.PC.OV ---
Intake Visit Reasons: Discuss Results~ Allergies bee pollen [BEE STINGS] Allergy (Unknown, Verified 02/05/24 08:31) SWELLING From PERCOCET Adverse Reaction (Unknown, Uncoded 06/20/23 15:18) NAUSEA & VOMITING Medication List - Last Reconciled 02/05/24 by Emilio Magaña MD amitriptyline 25 mg PO BEDTIME 30 days cinnamon bark (Cinnamon) 1,000 mg PO DAILY hydrocortisone 2.5% topical ketoconazole 2% 1 appl topical DAILY PRN [omega 3 fish oil PO] rabeprazole 20 mg PO BID 30 days sucralfate (Carafate) 1 g PO BID valacyclovir 2,000 mg (2 x 1 gram) PO BID PRN 1 day Tobacco use date assessed: 02/05/24 Dental Screening Dental Screen Date: 02/05/24 Did you have a dental visit in the last 12 months?: Yes Did you have a dental problem in the last 6 months where you did not have access to dental care?: No Was dental information given to patient?: Patient has dentist HPI Discuss Results~ HPI Details Patient is 58 years old female with single kidney this is telemed apt to go over her labs she had Bone density end of Nov which shows score of -2.0 AP spine, - 1.7 fem neck, consistent with osteopenia she is not interested in medication we talked about Ca rich foods and exercise for now we will repeat Bone density again in 2 years Cr came back at 1.11 with GFR of 57 we will repeat it again in 3 M mean while she is to avoid NSAIDs high Lipids : LDL of 151, follow low cholesterol diet Vit D is slightly low, she is to start supplement HAs are better f.u Franco [facility] Medical History Encounter for general adult medical examination with abnormal findings Colitis Pelvic pain in female Fibroids Vaginal dryness Candidiasis of mouth and esophagus Erosive gastritis GERD (gastroesophageal reflux disease) Encounter to discuss test results Well woman exam with routine gynecological exam Impaired fasting blood sugar Herpes simplex antibody positive Difficulty sleeping Obesity Surgical History History of endoscopy History of esophagogastroduodenoscopy (EGD) Hx of colonoscopy History of radical nephrectomy History of hysteroscopy Hx of cholecystectomy Breast mass, right History of tubal ligation Family History Father Stomach cancer Mother HTN (hypertension) Diabetes mellitus High cholesterol CVD (cardiovascular disease) Maternal Aunt Breast cancer Other Mental health disorder Substance use disorder Social History Housing: House Alcohol intake: never Patient Tobacco Use Status: Never used Tobacco e-Cigarette/Vaping Use: Never Used service: No Current occupational status: employed 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 1. Little interest or pleasure in doing things: not at all 2. Feeling down, depressed, or hopeless: not at all 3. Trouble falling or staying asleep, or sleeping too much: not at all 4. Feeling tired or having little energy: not at all 5. Poor appetite or overeating: not at all 6. Feeling bad about yourself - or that you are a failure or have let yourself or your family down: not at all 7. Trouble concentrating on things, such as reading the newspaper or watching television: not at all 8. Moving or speaking so slowly that other people could have noticed. Or the opposite - being so fidgety or restless that you have been moving around a lot more than usual: not at all 9. Thoughts that you would be better off or of hurting yourself in some way: not at all Total score: 0 Depression Screening Interpretation: Negative Depression Screening Done: Yes 18229 - PHQ-9 Billing: Yes Source: Developed by Drs. Everton Calderón, Jane Spears, Romel Damon and colleagues, with an educational haja from [employer]. Thrive Questionnaire Date Thrive assessed: 02/05/24 I am a: Patient What is your living situation today?: I have a steady place to live Within the past 12 months, did the food you bought not last and you didn't have the money to get more?: Never true Within the past 12 months, did you worry whether your food would run out before you got money to buy more?: Never true Do you have trouble paying for medicines?: No Do you have trouble getting transportation to medical appointments?: No Do you have trouble paying your heating and electricity bill?: No Do you have trouble taking care of your child, family member or friend?: No Do you have trouble with day-to-day activities such as bathing, preparing meals, shopping, managing finances, etc.?: No Are you currently unemployed and looking for a job?: No Are you interested in more education?: No Please select the resources that you would like help with: None Currently or been in a relationship where the following occur: No concerns reported THRIVE Score: 0 AUDIT C Alcohol Use Questionnaire (AUDIT-C) 1. How often do you have a drink containing alcohol?: Never 3. How often do you have six or more drinks on one occasion?: Never Total Score: 0 Score Reviewed/Action Taken: Yes MARY-7 AMB Questionnaire MARY-7 Date MARY - 7 assessed: 02/05/24 Feeling nervous, anxious, or on edge: 0 = Not at all Not being able to stop or control worryin = Not at all Worrying too much about different things: 0 = Not at all Trouble relaxin = Not at all Being so restless that it is hard to sit still: 0 = Not at all Becoming easily annoyed or irritable: 0 = Not at all Feeling afraid as if something awful might happen: 0 = Not at all Total MARY-7 score (0-4 normal; 5-9 mild; 10-14 moderate; 15-21 severe): 0 Source: Developed by Drs. Everton Calderón, Jane Spears, Romel Damon and colleagues, with an educational haja from [employer]. MARY-7 Assessment Billing MARY-7 Assessment Tool: MARY-7 Assessment 98261 Review of Systems Const Denies chills and Denies fever(s) ENT Denies epistaxis and Denies nasal discharge Card Denies chest pain Resp Denies chest congestion, Denies cough and Denies hemoptysis GI Denies diarrhea and Denies nausea Skin/Breast Denies rash Neuro Reports no additional complaints Psych Reports no additional complaints Endo Reports no additional complaints Physical exam (Primary Care) Tobacco/Smoking Status: Tobacco use Status Tobacco use date assessed 02/05/24 02/05/24 08:32 Patient Tobacco Use Status Never used Tobacco 02/05/24 08:32 e-Cigarette/Vaping Use Never Used 02/05/24 08:32 PHQ-9: PHQ-9 Score PHQ-9: Total score 0 02/05/24 08:59 Depression Screening Interpretation: Negative Thrive Assessment: Date of Thrive Assessment Date Thrive assessed 02/05/24 02/05/24 08:32 Currently or been in a relationship where the following occur: No concerns reported Coding Level of Care Code Tele Est Pt Level 4 (76333) Diagnoses Nephropathy N28.9 Solitary kidney, congenital Q60.0 Lipid disorder E78.9 Impaired fasting blood sugar R73.01 Migraine without aura and without status migrainosus, not intractable G43.009 Status migrainosus presence: without status migrainosus Intractability: not intractable Vitamin D deficiency E55.9 Additional Codes MARY-7 Assessment Billing - MARY-7 Assessment Tool: MARY-7 Assessment 62142 ([id number]) Assessment & Plan Assessment & Plan (1) Nephropathy: Code(s): N28.9 - Disorder of kidney and ureter, unspecified Category: Medical (2) Solitary kidney, congenital: Code(s): Q60.0 - Renal agenesis, unilateral Category: Medical (3) Lipid disorder: Code(s): E78.9 - Disorder of lipoprotein metabolism, unspecified Category: Medical (4) Impaired fasting blood sugar: Code(s): R73.01 - Impaired fasting glucose Category: Medical (5) Migraine headache without aura: Code(s): G43.009 - Migraine without aura, not intractable, without status migrainosus Category: Medical Qualifiers: Status migrainosus presence: without status migrainosus Intractability: not intractable Qualified Code(s): G43.009 - Migraine without aura, not intractable, without status migrainosus (6) Vitamin D deficiency: Code(s): E55.9 - Vitamin D deficiency, unspecified Category: Medical Plan Patient is 58 years old female with single kidney this is telemed apt to go over her labs she had Bone density end of Nov which shows score of -2.0 AP spine, - 1.7 fem neck, consistent with osteopenia she is not interested in medication we talked about Ca rich foods and exercise for now we will repeat Bone density again in 2 years Cr came back at 1.11 with GFR of 57 we will repeat it again in 3 M mean while she is to avoid NSAIDs high Lipids : LDL of 151, follow low cholesterol diet Vit D is slightly low, she is to start supplement CID is better f.u Franco total time spent 30 min care of this patient
== END 2024-02-05 09:50 | disposition home or self-care (01) ==
PROVIDERS: PCP Internal Medicine; Visit Provider Internal Medicine
DX: N28.9 Disorder of kidney and ureter, unspecified (principal); Q60.0 Renal agenesis, unilateral; E78.9 Disorder of lipoprotein metabolism, unspecified; R73.01 Impaired fasting glucose; G43.009 Migraine without aura, not intractable, without status migrainosus; E55.9 Vitamin D deficiency, unspecified

== ENCOUNTER → 2024-02-05 08:26 | Outpatient (BNVA) | payer OTHER, SELFPAY | PROVIDERS: PCP Internal Medicine; Visit Provider Internal Medicine | DX: N28.9 Disorder of kidney and ureter, unspecified (principal); E78.9 Disorder of lipoprotein metabolism, unspecified; R73.01 Impaired fasting glucose; G43.009 Migraine without aura, not intractable, without status migrainosus; E55.9 Vitamin D deficiency, unspecified; Q60.0 Renal agenesis, unilateral | CPT/HCPCS: 96127 ==

== ENCOUNTER 2024-02-27 15:34 | Outpatient (AMB) | payer OTHER, SELFPAY ==
[2024-02-27 15:37] VITALS: BP 130/70; PULSE 90; BMI 30.7
--- NOTE | 2024-02-27 15:37 | A.OFFVIS_ITS ---
Vital Signs 02/27/24 15:37 Height 5 ft 1 in Weight 162 lb 4.163 oz BMI 30.7 BP 130/70 Blood Pressure Location Rt brachial Position Sitting Pulse 90 Intake Visit Reasons: Follow up 6 months Intake Note: Patient in office today in 6 months follow up of rectal bleeding CC: Patient reports that last week she was having rectal bleeding. Collection Officer Required: No Accompanied by: Self / Same As Patient Allergies bee pollen [BEE STINGS] Allergy (Unknown, Verified 05/14/24 14:48) SWELLING From PERCOCET Adverse Reaction (Unknown, Uncoded 06/20/23 15:18) NAUSEA & VOMITING HPI HPI Follow up 6 months: Details: Assessment & Plan (1) GERD (gastroesophageal reflux disease): Code(s): K21.9 - Gastro-esophageal reflux disease without esophagitis Category: Medical (2) Erosive gastritis: Code(s): K29.60 - Other gastritis without bleeding Category: Medical (3) Family history of polyps in the colon: Comment: 2022 scope= TA and aphthous ulcers repeat in 3-5 years; Father of ? stomach vs CRC, patient's last scope 2016 repeat 2021 Code(s): Z83.71 - Family history of colonic polyps Category: Medical (4) H. pylori infection: Comment: Sent for allergy testing and NOT allergic to PCN., She has failed every known treatment Prevpac, Helidac, Levaquin a/amoxicillin, Rifabutin/ amoxicillin. At this time will managing her symptoms since we have been unable to eradicate this resistant microbe. There was 1 antibiotics did not tolerate I am uncertain if it was rifabutin Code(s): A04.8 - Other specified bacterial intestinal infections Category: Medical (5) Colitis: Comment: IBD studies negative, but fecal calprotectin and CRP elevated, aphthous ulcers on 2022 colonoscopy Code(s): K52.9 - Noninfective gastroenteritis and colitis, unspecified Category: Medical Plan SHE SPEAKS DANISH. SHE CONTINUES ON ACIPHEX, Carafate, With this all of her GI sx are well controlled. We again discussed HP and the risks of non eradication. IBD studies really inconclusive. Consider 3 year repeat scope and keep eye on new abx. ROV 6 mos. Medications: Refilled rabeprazole 20 mg PO BID 30 days 60 tabs 6RF A04.8 - Other specified bacterial intestinal infections, K21.9 - Gastro-esophageal reflux disease without esophagitis, K29.60 - Other gastritis without bleeding sucralfate (Carafate) 1 g PO BID 60 tabs 6RF Discontinued metronidazole Discontinued Reason: Patient Completed Course 1,000 mg (2 x 500 mg) PO BID 14 days 56 tabs 0RF doxycycline hyclate Discontinued Reason: Patient Completed Course 100 mg PO BID 14 days 28 tabs 0RF A04.8 - Other specified bacterial intestinal infections, K29.60 - Other gastritis without bleeding bismuth subsalicylate (Bismuth) Discontinued Reason: Patient Completed Course 2 tabs PO QID 14 days 112 tabs 0RF fluconazole (Diflucan) Discontinued Reason: Patient Completed Course 200 mg PO DAILY 14 tabs 0RF CORRESPONDENCE On 06/27/23 @ 15:18 Jonathan Le Wrote To Justine Perez These reports are scanned by the lab. They scanned IBD SGI report on 06/24 but report states only whole blood was received, serum was also required. Patient needs to have this test redone. I called Pt and LVM letting her know she needs to have lab re drawn. On 06/27/23 @ 14:58 Justine Perez Wrote To Jonathan Le You only scanned the TMP T results there is also a genetic study from [employer] that needs to be scan. Please see if you can find this as well. On 06/27/23 @ 07:19 System Wrote To ChrisJustine Results added. Task updated. On 06/20/23 @ 18:06 System Wrote To Justine Perez Results added. Task updated. TODAY'S VISIT SHE SPEAKS DANISH. She continues on AcipHex and Carafate. She is doing well, but had 2 BM's with blood on the TT. WIll rx roid cream. She is going to [place] for T day!! ROV 6 mos. [facility] Medical History Tonsillar erythema Painful arc syndrome of left shoulder Obesity Herpes simplex antibody positive Family history of polyps in the colon Abnormal endometrial ultrasound Tubular adenoma of colon Bereavement reaction Skin lesion Painful arc syndrome of right shoulder Herpes zoster Encounter for general adult medical examination with abnormal findings Lumbar pain Encounter for routine gynecological examination Colitis Pelvic pain in female Fibroids Vaginal dryness Candidiasis of mouth and esophagus Erosive gastritis GERD (gastroesophageal reflux disease) Encounter to discuss test results Well woman exam with routine gynecological exam Impaired fasting blood sugar Difficulty sleeping Surgical History History of endoscopy History of esophagogastroduodenoscopy (EGD) Hx of colonoscopy History of radical nephrectomy History of hysteroscopy Hx of cholecystectomy Breast mass, right History of tubal ligation Family History Father Stomach cancer Mother HTN (hypertension) Diabetes mellitus High cholesterol CVD (cardiovascular disease) Maternal Aunt Breast cancer Other Mental health disorder Substance use disorder Social History Housing: House Alcohol intake: never Patient Tobacco Use Status: Never used Tobacco e-Cigarette/Vaping Use: Never Used service: No Current occupational status: employed 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 Gender identity: Female Cognitive needs: No Hearing needs: Yes Vision needs: No Female Reproductive History Menstrual Age of Menarche: 11 Review of Systems Const Denies fatigue, Denies fever(s), Denies night sweats, Denies poor appetite and Denies weight loss ENT Reports Normal hearing present, Denies dental pain, Denies dysphagia, Denies hearing loss, Denies mouth pain, Denies odynophagia, Denies throat swelling, Denies tongue swelling and Reports other (Dentition adequate) Card Reports no additional complaints Resp Reports no additional complaints GI Details: Reports abdominal pain, Denies melena, Denies bloating, Denies hematochezia, Denies constipation, Denies GI cramping, Denies dysphagia, Denies excessive flatus, Denies early satiety, Reports heartburn, Denies diarrhea, Reports nausea, Denies odynophagia, Denies vomiting and Denies hematemesis Skin/Breast Denies pruritus, Denies lesions, Denies rash and Denies jaundice Neuro Reports Normal hearing present and Denies Abnormal speech present Endo Denies fatigue Aller/Immun Denies throat swelling and Denies tongue swelling Physical Exam Vital Signs: Last Vital Signs Pulse 90 02/27/24 15:37 BP 130/70 02/27/24 15:37 BMI result Body Mass Index 30.7 Const General: cooperative, no acute distress, well developed and well groomed Nutritional Appearance: well nourished and obese Orientation/consciousness: oriented to person, oriented to place and oriented to time Limitations: No language barrier HEENT Head: Yes normocephalic and Yes atraumatic Eyes General: appearance normal, both eyes and all related structures Pupils: Equal, round and reactive pupils present Neck Neck: Yes normal visual inspection and Yes no lymphadenopathy Thyroid: Thyroid normal Resp Effort & Inspection: normal respiratory effort and able to speak in complete sentences Auscultation: clear to auscultation bilaterally Cardio Rate: regular rate Rhythm: regular rhythm Heart sounds: Normal, physiologic split S2 sound present Peripheral pulses: radial pulses present and posterior tibial pulses present GI Inspection: No distended, No Abdominal panniculus present and Yes obesity Palpation (GI): Soft to palpation, nontender, no guarding, not rigid and No hepatosplenomegaly present Percussion: Yes normal to percussion Auscultation: normal bowel sounds Rectal Exam - Female: deferred Skin General skin exam: no rashes or lesions noted, turgor normal, skin not dry, no jaundice, No spider nevi and no striae Rashes: no rashes Nails: normal Neuro General: oriented to person, oriented to place and oriented to time Cranial nerves: Yes Equal, round and reactive pupils present and Yes Normal hearing present Speech: No Abnormal speech present Extrem General: Yes normal to inspection, No clubbing, No cyanosis and No edema Psych Appearance: grossly normal and well kempt Mental Status: mental status grossly normal Speech and movement: Normal speech and movement present Affect: normal affect Attitude: cooperative Thought process: Normal thought process present and not confabulating Thought content: Normal thought content present Insight: Limited insight present (Psych) Judgement: Limited judgement present (Psych) Assessment & Plan Assessment & Plan (1) Colitis: Comment: IBD studies negative, but fecal calprotectin and CRP elevated, aphthous ulcers on 2022 colonoscopy Code(s): K52.9 - Noninfective gastroenteritis and colitis, unspecified Category: Medical (2) Tubular adenoma of colon: Comment: 2022 scope= TA repeat in 5 years Code(s): D12.6 - Benign neoplasm of colon, unspecified Category: Medical (3) GERD (gastroesophageal reflux disease): Code(s): K21.9 - Gastro-esophageal reflux disease without esophagitis Category: Medical Qualifiers: Esophagitis presence: without esophagitis Qualified Code(s): K21.9 - Gastro-esophageal reflux disease without esophagitis (4) Erosive gastritis: Code(s): K29.60 - Other gastritis without bleeding Category: Medical (5) H. pylori infection: Comment: Sent for allergy testing and NOT allergic to PCN., She has failed every known treatment Prevpac, Helidac, Levaquin a/amoxicillin, Rifabutin/ amoxicillin. At this time will managing her symptoms since we have been unable to eradicate this resistant microbe. There was 1 antibiotics did not tolerate I am uncertain if it was rifabutin Code(s): A04.8 - Other specified bacterial intestinal infections Category: Medical Plan SHE SPEAKS DANISH. She continues on AcipHex and Carafate. She is doing well, but had 2 BM's with blood on the TT. WIll rx roid cream. She is going to [place] for T day!! ROV 6 mos. Medications: New hydrocortisone 2.5% (Proctosol HC) BE SURE TO INCLUDE RECTAL APPICATOR!! 1 appl ME BID 30 grams 6RF hemorrhoids K64.9 - Unspecified hemorrhoids Refilled sucralfate (Carafate) 1 g PO BID 60 tabs 6RF rabeprazole 20 mg PO BID 60 tabs 6RF 30 days A04.8 - Other specified bacterial intestinal infections, K21.9 - Gastro-esophageal reflux disease without esophagitis, K29.60 - Other gastritis without bleeding Coding Level of Care Code Est Pt Level 3 (49624) Diagnoses Colitis K52.9 Tubular adenoma of colon D12.6 Gastroesophageal reflux disease without esophagitis K21.9 Esophagitis presence: without esophagitis Erosive gastritis K29.60 H. pylori infection A04.8
== END 2024-02-27 16:28 | disposition home or self-care (01) ==
PROVIDERS: PCP Internal Medicine; Visit Provider Nurse Practitioner
DX: K52.9 Noninfective gastroenteritis and colitis, unspecified (principal); D12.6 Benign neoplasm of colon, unspecified; K21.9 Gastro-esophageal reflux disease without esophagitis; K29.60 Other gastritis without bleeding; A04.8 Other specified bacterial intestinal infections
CPT/HCPCS: 99213

== ENCOUNTER 2024-04-03 09:48 | Outpatient (REF) | payer OTHER, SELFPAY ==
--- OUTSIDE RECORDS SUMMARY | 2024-04-03 09:50 | XMS_ITS ---
Author Name [facility] Organization Unknown History of Medication Use Medication Directions Dispensed Refills Start Date End Date [facility] Procto-Med HC 2.5 % rectal cream APPLY 1 APPLICATION RECTALLY TWO TIMES A DAY FOR HEMORRHOIDS 04/01/2024 04/20/9999 active RABEprazole (ACIPHEX) 20 MG tablet 1 tablet by Mouth/Oral Cavity route every 12 hours. 04/01/2024 04/20/9999 active Problems Problem Status Onset Date Problem Type Date of Resolution Source Globus sensation active EncounterDiagnosisAct [facility]HCCT Parapharyngeal space mass active EncounterDiagnosisAct HHCCT
== END 2024-04-03 09:49 | disposition home or self-care (01) ==
LOC: HO.MAMMO 09:48
PROVIDERS: PCP Internal Medicine; Visit Provider Internal Medicine
DX: Z12.31 Encounter for screening mammogram for malignant neoplasm of breast (principal)
CPT/HCPCS: 77063; 77067

== ENCOUNTER → 2024-04-03 10:00 | Outpatient (BNV) | payer OTHER, SELFPAY | PROVIDERS: PCP Internal Medicine; Visit Provider Internal Medicine | DX: Z12.31 Encounter for screening mammogram for malignant neoplasm of breast (principal) | CPT/HCPCS: 77063; 77067 ==

== ENCOUNTER → 2024-05-14 14:42 | Outpatient (BNVA) | payer OTHER, SELFPAY | PROVIDERS: PCP Internal Medicine; Visit Provider Internal Medicine | DX: G43.009 Migraine without aura, not intractable, without status migrainosus (principal); G47.9 Sleep disorder, unspecified; R73.01 Impaired fasting glucose; K29.60 Other gastritis without bleeding; E78.9 Disorder of lipoprotein metabolism, unspecified; E66.09 Other obesity due to excess calories; Z68.30 Body mass index [BMI] 30.0-30.9, adult; E55.9 Vitamin D deficiency, unspecified; N28.9 Disorder of kidney and ureter, unspecified; M85.80 Other specified disorders of bone density and structure, unspecified site; N18.30 Chronic kidney disease, stage 3 unspecified; Q60.0 Renal agenesis, unilateral | CPT/HCPCS: 96127 ==

== ENCOUNTER 2024-05-21 08:32 | Outpatient (REF) | payer OTHER, SELFPAY ==
--- NOTE | ~2024-05-21 | US_ITS ---
EXAMINATION: MM DIAGNOSTIC DIGITAL BREAST TOMOSYNTHESIS, LEFT Limited left breast ultrasound. CLINICAL INFORMATION: Call back from screening for asymmetry in the lateral left breast on CC view. COMPARISON: Mammography: Available prior examinations. TECHNIQUE: Digital breast tomosynthesis is performed in both the craniocaudal and mediolateral oblique views along with computer-aided detection (CAD). Synthesized 2D images are generated from the tomosynthesis. Line Limited left breast ultrasound. FINDINGS: The breasts are heterogeneously dense, which may obscure small masses (ACR BI-RADS breast composition Category c). Asymmetry in the lateral left breast on CC view anterior depth does not persist on additional imaging projections and is not significantly changed from prior mammograms dating back to 2021. There are no significant masses, abnormal calcifications, or other abnormalities. Targeted color Doppler ultrasound left breast from 1-5 o'clock demonstrates normal fibroglandular breast tissue. There is no sonographic abnormality. US/US breast LT limited mamm only IMPRESSION: No mammographic or sonographic abnormality. ASSESSMENT: BI-RADS BI-RADS 1 - Negative RECOMMENDATION: 1 year F/U Results were provided to the patient at time of visit by the technologist. This patient's information was entered into a reminder system with a target due date for their next mammogram. Electronically signed by: Shaina Zamudio DO 05/21/2024 10:49 AM MARILYN
--- OUTSIDE RECORDS SUMMARY | 2024-05-21 08:41 | XMS_ITS | Encounter Summary ---
Author Organization [facility] Address [address] [place] [address] Care Team Providers Care Customs Entry Clerk Name Role Phone Unavailable Primary Care Provider Unavailabl e Reason for Visit * Reason Comments Results Encounter Details Date Type Department Care Team (Late st Contact Info) Description 04/23/2024 Telephone [facility] [address] [place] [phone] Brenda Loving PA-C [address] [place] [address] Results Social History Tobacco Use Types Packs/Day Years Used Date Smoking Tobacco: Never Assessed Sex and Gender Information Value Date Recorded Sex Assigned at Not on file Gender Identity Not on file Sexual Orientation Not on file documented as of this encounter Miscellaneous Notes * Telephone Encounter - Brenda Loving PA-C - 04/23/2024 2:34 PM EST Contacted Maeve regarding CT results which showed a asymmetric soft tissue prominence in the leftpalatine tonsil. We discussed that this is likely the source of her globus sensation. I recommendedconsultation with one of our head and neck physicians to discuss removal. documented in this encounter Plan of Treatment Upcoming Encounters Date Type Department Care Team (Late st Contact Info) Description 07/28/2024 2:15 PM EDT Office Visit [facility] [address], [address] [place] [address] Nehemiah Kraft MD [address] [place] [address] documented as of this encounter Visit Diagnoses Not on filedocumented in this encounter
--- OUTSIDE RECORDS SUMMARY | 2024-05-21 08:41 | XMS_ITS | Encounter Summary ---
Author Organization [facility] Address [address] [place] [address] Care Team Providers Care Precision Crop Manager Name Role Phone Unavailable Primary Care Provider Unavailabl e Encounter Details Date Type Department Care Team (Late st Contact Info) Description 04/07/2024 Scanned Document [facility] [address] [place] [phone] Brenda Loving PA-C [address] [place] [address] Social History Tobacco Use Types Packs/Day Years Used Date Smoking Tobacco: Never Assessed Sex and Gender Information Value Date Recorded Sex Assigned at Not on file Gender Identity Not on file Sexual Orientation Not on file documented as of this encounter Plan of Treatment Upcoming Encounters Date Type Department Care Team (Late Contact Info) Description 07/28/2024 2:15 PM EDT Office Visit [facility] [address], [address] [phone] Nehemiah Kraft MD [address] [place] [address] documented as of this encounter Visit Diagnoses Not on filedocumented in this encounter
--- OUTSIDE RECORDS SUMMARY | 2024-05-21 08:41 | XMS_ITS | Encounter Summary ---
Author Organization [facility] Address [address] [place] [address] Care Team Providers Care Automobile Drivers Name Role Phone Unavailable Primary Care Provider Unavailabl e Encounter Details Date Type Department Care Team (Late st Contact Info) Description 04/26/2024 Telephone [facility] [place] [address] [place] [address] Nehemiah Kraft MD [address] [place] [address] Social History Tobacco Use Types Packs/Day Years Used Date Smoking Tobacco: Never Assessed Sex and Gender Information Value Date Recorded Sex Assigned at Not on file Gender Identity Not on file Sexual Orientation Not on file documented as of this encounter Miscellaneous Notes * Telephone Encounter - Maggy Wetzel MA - 04/26/2024 9:50 AM EST Appt schedule 1-9 at 12:30. documented in this encounter Plan of Treatment Upcoming Encounters Date Type Department Care Team (Late st Contact Info) Description 07/28/2024 2:15 PM EDT Office Visit [facility] [address], [address] [phone] Nehemiah Kraft MD [address] [place] [address] documented as of this encounter Visit Diagnoses Not on filedocumented in this encounter
--- OUTSIDE RECORDS SUMMARY | 2024-05-21 08:41 | XMS_ITS | Clinical Summary ---
Author Organization [facility] Address [address] [address] Care Team Providers Care Bait Man Name Role Phone Emilio Magaña MD Primary Care Provider [phone] Family History Medical History Relation Comments Cancer Father Diabetes Mother Hypertension Mother Relation Status Comments Father Mother Alive Social History Tobacco Use Types Packs/Day Years Used Date Smoking Tobacco: Never Alcohol Use Standard Drinks/Week Comments No 0 (1 standard drink = 0.6 oz pure alcohol) Alcoholic Drinks/day: Occasional social drink Comments Unknown Sex and Gender Information Value Date Recorded Sex Assigned at Not on file Legal Sex Female 4:35 PM EST Gender Identity Not on file Sexual Orientation Not on file Plan of Treatment Health Maintenance Due Date Last Done Comments Breast Cancer Screening 1965 Colorectal Cancer Screening: Annual FOBT 2013 Colorectal Cancer Screening: Colonoscopy 2013 Colorectal Cancer Screening: Sigmoidoscopy 2013 Pneumococcal Vaccine: Pediat rics (0 to 5 Years) and At-Risk Patients (6 to 64 Years) (2 of 2 - PPSV23 or PCV20) 03/27/2015 01/30/2015 Influenza Vaccine (#1) 2023 01/30/2015 Hepatitis B Vaccine Aged Out No longe r eligible based on patient's age to complete this topic Care Teams Bait Man Relationship Specialty Start Date End Date Emilio Magaña MD [facility] [place] [address] PCP - General 05/01/20
--- OUTSIDE RECORDS SUMMARY | 2024-05-21 08:41 | XMS_ITS | Encounter Summary ---
Author Organization [facility] Address [address] [place] [address] Care Team Providers Care Track Oiler Name Role Phone Unavailable Primary Care Provider Unavailabl e Reason for Visit * Reason Comments Mass Tonsil Mass Encounter Details Date Type Department Care Team (Latest Contact Info) Description 05/13/2024 8:45 AM EST Office Visit [facility] [address] [address] Nehemiah Kraft MD [address] [place], [place] [id number] Oropharyngeal dysphagia (Primary Dx); Tonsillar hypertrophy; Globus sensation Social History Tobacco Use Types Packs/Day Years Used Date Smoking Tobacco: Never Assessed Sex and Gender Information Value Date Recorded Sex Assigned at Not on file Gender Identity Not on file Sexual Orientation Not on file documented as of this encounter Last Filed Vital Signs Vital Sign Reading Time Taken Comments Blood Pressure - - Pulse - - Temperature - - Respiratory Rate - - Oxygen Saturation - - Inhaled Oxygen Concentration - - Weight 72.1 kg (159 lb) 05/13/2024 8:34 AM EST Height 154.9 cm (5' 1 ) 05/13/2024 8:34 AM EST Body Mass Index 30.04 05/13/2024 8:34 AM EST documented in this encounter Progress Notes * Nehemiah Kraft MD - 05/13/2024 8:45 AM EST Images from the original note were not included. [address] [address] Loc: [phone] Encounter Date: 05/13/2024 Name: Shanika Carrillo : 1965 ENT/Head and Neck Surgical Oncology Consultation ASSESSMENT/PLAN 59 y.o. female who presents with a chief complaint of globus sensation on the left side of her throat. She denies any significant pain. She describes some slight pressure on the left side of her throat. She does have a history of reflux. Shanika was seen by Brenda Loving on 03/30/2024. A CT scan of the neck was ordered which was performed on 04/15/2024 at [facility]. The report describes asymmetrical soft tissue prominence along the left tonsil where there is an area of low-density with some peripheral enhancement with the differential including neoplasm with necrosis versus infection/abscess. Oliverio reports that she was initially treated with antibiotics by her primary care physician. On examination today, there are 1-2+ symmetrical appearing palatine tonsils with no palpable massesor tenderness. There is no trismus. On fiberoptic laryngoscopy, the palatine tonsils appear symmetric with no masses in the nasopharynx. There is symmetrical appearing lymphoid hypertrophy in the base of tongue. I do not appreciate a discrete cervical lymphadenopathy. I do not appreciate any concerning lesions on exam today that would warrant a biopsy. I have recommended close follow-up. Follow-up appointment scheduled in 2 months for reevaluation. She should return sooner with any worsening symptoms If her symptoms persist, a biopsy/tonsillectomy could be considered. History of Present Illness Ms. Carrillo presents with the sensation of left-sided throat irritation. She reports that there is a lump in the left side of her throat where food gets stuck. She was initially treated with a course of antibiotics by her primary care physician with no significant improvement. She denies any significant throat pain, odynophagia, or otalgia. She denies any history of smoking. She denies any weight loss. She had a CT scan of the neck performed on 04/15/2024 at [facility]. This noted slight asymmetrical soft tissue prominence along the left tonsil with partial rim-enhancing low-density lesion measuring 9 mm. Past Medical History: Diagnosis Date GERD (gastroesophageal reflux disease) No past surgical history on file. Current Outpatient Medications Medication Instructions Procto-Med HC 2.5 % rectal cream APPLY 1 APPLICATION RECTALLY TWO TIMES A DAY FOR HEMORRHOIDS RABEprazole (ACIPHEX) 20 MG tablet 1 tablet, Mouth/Oral Cavity, Every 12 hours No Known Allergies Social History Tobacco Use Smoking status: Not on file Smokeless tobacco: Not on file Substance Use Topics Alcohol use: Not on file No family history on file. Review of Systems: 12 system review of systems was negative except as per HPI Physical Exam General Appearance: Well nourished, NAD Voice: Strong, non-labored respirations, no stridor Nose: Patent nares, midline septum. No mucus/polyps/purulence on AR Oral Cavity: Mucosa moist and intact without lesions or masses. Mobile tongue. No trismus. Dentition in good condition. Oropharynx: No erythema, exudates or masses noted. Uvula midline. Neck: No lymphadenopathy, masses or tenderness on palpation. No thyromegaly. Midline larynx. Cranial Nerves: CN II-XII grossly intact without obvious deficit. MSK/Ext: LÓPEZ, adequate pulses Skin: Good color and turgor. Findings as above, except pertinent/abnormal findings noted here: Symmetrical appearing palatine tonsils. 1-2+. No palpable masses within the tonsil. No ulcerations No trismus No tenderness No discrete cervical lymphadenopathy Procedures: Laryngoscopy Procedure: Fiberoptic laryngoscopy Indications: Flexible fiberoptic laryngoscopy was performed as patient was unable to tolerate mirror examination and the patient???s history and diagnoses of concern warranted mucosal exam. After explanation of the procedure and verbal consent from the patient, the nasal cavity was decongested and anesthetized in usual fashion. The scope was passed through the nasal cavity. The nasal cavity, nasopharynx, oropharynx, larynx, and hypopharynx were all examined. The vocal cords were examined in ventilatory and phonotory phases. The following findings are noted: Symmetrical lymphoid tissue in the base of tongue. No discrete mucosal ulcerations or masses. Symmetrical appearing palatine tonsils. The patient tolerated the procedure well without complications. Relevant Imaging/Pathology/Labs 04/15/2024: Ct scan of neck ([facility]) Asymmetric soft tissue prominence along the left oropharynx with possible partial rim-enhancing low-density lesion in the mucosal pharyngeal space measuring 9 x 9 x 4 mm. No significant associated inflammation. Normal sized lymph nodes with normal morphology. Nehemiah Kraft M.D ([place])., FACS Head and Neck Surgery & Microvascular Reconstructive [facility] Co-Director, Head and Neck Surgical Oncology Program, [facility] Forging Press Setter Up Clinical Professor, [employer] CC: No primary care provider on file., No ref. provider found, This note was created using voice recognition software. Please excuse any typographical errors or word substitutions. Consents/Instructions: I reviewed my findings with this patient and/or their family. We have discussed the diagnoses and recommended interventions. I have answered all of their questions to their apparent satisfaction. I have encouraged this patient to call me with any questions or concerns. MDM I spent a total of 30 minutes managing this patient with time inclusive of chart review, imaging review and interpretation, laboratory review and interpretation, direct patient interaction inclusive of history taking, review of systems and examination, and counseling/coordination of care; exclusiveof procedure time. This encounter required moderate medical decision making and the aggregate of this process is detailed in the plan and elsewhere in the clinical encounter note. documented in this encounter Plan of Treatment Upcoming Encounters Date Type Department Care Team (Late st Contact Info) Description 07/28/2024 2:15 PM EDT Office Visit [facility] [address], [address] [place] [phone] Nehemiah Kraft MD [address] [place], [place] [phone] documented as of this encounter Visit Diagnoses Diagnosis Oropharyngeal dysphagia- Primary Dysphagia, oropharyngeal phase Tonsillar hypertrophy Hypertrophy of tonsils alone Globus sensation Gastrointestinal malfunction arising from mental factors documented in this encounter
--- OUTSIDE RECORDS SUMMARY | 2024-05-21 08:41 | XMS_ITS | Clinical Summary ---
Author Organization [facility] Address [address] [place] [address] Care Team Providers Care Supervisor Phosphorus Processing Name Role Phone Unavailable Primary Care Provider Unavailabl e Allergies No known active allergies Medications Medication Sig Dispensed Refills Start Date End Date Status Procto-Med HC 2.5 % rectal cream APPLY 1 APPLICATION RECTALLY TWO TIMES A DAY FOR HEMORRHOIDS 02/27/2024 Active RABEprazole (ACIPHEX) 20 MG tablet 1 tablet by Mouth/Oral Cavity route every 12 hours. 03/01/2024 Active Active Problems No known active problems Encounters Date Type Department Care Team Description 05/13/2024 8:45 AM EST Office Visit [facility] [address] [address] Nehemiah Kraft MD Oropharyngeal dysphagia (Primary Dx); Tonsillar hypertrophy; Globus sensation 04/26/2024 Telephone [facility] [place] [address] [place] [address] Nehemiah Kraft MD 04/23/2024 Telephone [facility] [address] [facility], [place] [address] Brenda Loving PA-C Results 04/07/2024 Scanned Document [facility] [place] [address] [place] [address] Brenda Loving PA-C 03/30/2024 9:45 AM EST Consult [facility] [address] [place] [phone] Brenda Loving PA-C Globus sensation (Primary Dx); Parapharyngeal space mass from Last 3 Months Social History Tobacco Use Types Packs/Day Years Used Date Smoking Tobacco: Never Assessed Sex and Gender Information Value Date Recorded Sex Assigned at Not on file Gender Identity Not on file Sexual Orientation Not on file Last Filed Vital Signs Vital Sign Reading Time Taken Comments Blood Pressure - - Pulse - - Temperature - - Respiratory Rate - - Oxygen Saturation - - Inhaled Oxygen Concentration - - Weight 72.1 kg (159 lb) 05/13/2024 8:34 AM EST Height 154.9 cm (5' 1 ) 05/13/2024 8:34 AM EST Body Mass Index 30.04 05/13/2024 8:34 AM EST Plan of Treatment Upcoming Encounters Date Type Department Care Team (Late st Contact Info) Description 07/28/2024 2:15 PM EDT Office Visit [facility] [address], [address] [phone] Nehemiah Kraft MD [address] [facility] [place] [address] Health Maintenance Due Date Last Done Comments Hepatitis C Virus Screening 1965 HIV Screening 1977 DTaP/Tdap/Td Vaccines (1 - Tdap) 1983 Pap Smear (Ages 21-65) 1985 Mammogram 2004 Colonoscopy 2009 Pneumococcal Vaccines 50+ (1 of 1 - PCV) 2014 Zoster (Shingles) Vaccine (1 of 2) 2014 Influenza Vaccine 11/20/2023 01/29/2023, , 02/06/2021, Additional history exists COVID-19 Vaccine ( - season) 2023 03/29/2023, 02/24/2021, 05/14/2020, Additional history exists RSV Vaccine 60 years and older and Patients (1 - 1-dose 75+ series) 2039 Hepatitis B Vaccines Aged Out No long er eligible based on patient's age to complete this topic
== END 2024-05-21 08:33 | disposition home or self-care (01) ==
LOC: HO.MAMMO 08:32
PROVIDERS: PCP Internal Medicine; Visit Provider Internal Medicine
DX: N64.89 Other specified disorders of breast (principal)
CPT/HCPCS: 76642; 77061; 77065

== ENCOUNTER → 2024-05-21 08:45 | Outpatient (BNV) | payer OTHER, SELFPAY | PROVIDERS: PCP Internal Medicine; Visit Provider Internal Medicine | DX: R92.322 Mammographic fibroglandular density, left breast (principal) | CPT/HCPCS: 76642; 77061; 77065 ==

== ENCOUNTER 2024-07-30 11:28 | Outpatient (AMB) | payer OTHER, SELFPAY ==
[2024-07-30 11:32] VITALS: BMI 30.8
--- NOTE | 2024-07-30 11:32 | A.OFFVIS_ITS ---
Vital Signs 07/30/24 11:32 Height 5 ft 1 in Weight 163 lb BMI 30.8 Intake Visit Reasons: left shoulder injection Intake Note: Shanika is a 57 year old female who presents today for a repeat injection for her left shoulder, last injections were on 02/21/23 were both shoulders were injected. Patient reports her last injection gave her relief but she did both shoulders and she felt like she was going to pass out. She states wanting to do just her left shoulder today. Allergies bee pollen [BEE STINGS] Allergy (Unknown, Verified 07/30/24 11:42) SWELLING From PERCOCET Adverse Reaction (Unknown, Uncoded 06/20/23 15:18) NAUSEA & VOMITING HPI HPI left shoulder injection: Details: Shanika is a 57 year old female who presents today for a repeat injection for her left shoulder, last injections were on 02/21/23 were both shoulders were injected. Patient reports her last injection gave her relief but she did both shoulders and she felt like she was going to pass out. She states wanting to do just her left shoulder today. [facility] Medical History (Updated 07/30/24 @ 13:25 by Kennedi Boyd PA-C) Painful arc syndrome of left shoulder Tonsillar erythema Obesity Herpes simplex antibody positive Family history of polyps in the colon Abnormal endometrial ultrasound Tubular adenoma of colon Bereavement reaction Skin lesion Painful arc syndrome of right shoulder Herpes zoster Encounter for general adult medical examination with abnormal findings Lumbar pain Encounter for routine gynecological examination Colitis Pelvic pain in female Fibroids Vaginal dryness Candidiasis of mouth and esophagus Erosive gastritis GERD (gastroesophageal reflux disease) Encounter to discuss test results Well woman exam with routine gynecological exam Impaired fasting blood sugar Difficulty sleeping Surgical History History of endoscopy History of esophagogastroduodenoscopy (EGD) Hx of colonoscopy History of radical nephrectomy History of hysteroscopy Hx of cholecystectomy Breast mass, right History of tubal ligation Family History Father Stomach cancer Mother HTN (hypertension) Diabetes mellitus High cholesterol CVD (cardiovascular disease) Maternal Aunt Breast cancer Other Mental health disorder Substance use disorder Social History Housing: House Alcohol intake: never Patient Tobacco Use Status: Never used Tobacco e-Cigarette/Vaping Use: Never Used service: No Current occupational status: employed 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 Gender identity: Female Cognitive needs: No Hearing needs: Yes Vision needs: No Female Reproductive History Menstrual Age of Menarche: 11 Review of Systems Const All systems reviewed & are unremarkable except as noted in HPI and below Physical Exam Vital Signs: BMI result Body Mass Index 30.8 Const General: cooperative, healthy appearing and no acute distress Orientation/consciousness: patient oriented x3 HEENT Head: Yes normal to inspection, Yes normocephalic and Yes atraumatic Eyes General: appearance normal, both eyes and all related structures Resp Effort & Inspection: normal respiratory effort and able to speak in complete sentences Cardio Rate: regular rate Peripheral pulses: Peripheral pulses 2+ throughout GI Palpation (GI): Soft to palpation Skin Lesions: no lesions Rashes: no rashes Neuro General: patient oriented x3 Extrem Other: Left shoulder: Normal to inspection. No ecchymosis, erythema, or edema. Patient is able to demonstrate forward flexion to end range. Abduction is lacking 30 degrees. External rotation to 45 degrees. Able to reach T12. Negative cross-body reach. Negative empty can. Negative drop arm. NVI. Psych Mental Status: mental status grossly normal Office Procedures AMB Joint Injection/Aspiration Joint Injection/Aspiration Primary Site: left shoulder Prep: site was prepped using aseptic technique, ethochloride spray was applied and injection warnings given Injected: 80 mg of, DepoMedrol, with 8 mL of (2% plain lidocaine) and in the subcromial space Approach Used: posterolateral Procedure: The patient tolerated the procedure well, but had some pain with the injection and there was some relief with the local anesthesia Coding 97575 - Large joint Procedure code (CPT) selection complete Assessment & Plan Assessment & Plan (1) Painful arc syndrome of left shoulder: Code(s): M75.102 - Unspecified rotator cuff tear or rupture of left shoulder, not specified as traumatic Category: Medical Plan The patient was offered a cortisone injection in the left shoulder with 80 mg of DepoMedrol. The patient was explained the risks, benefits, and alternatives to receiving this injection. After receiving consent for the injection, the patient had the procedure done while in the office today. The patient tolerated the procedure well with no complications. Follow-up will be p.r.n., or sooner if needed Coding Level of Care Code Est Pt Level 3 (93121) Diagnoses Painful arc syndrome of left shoulder M75.102 CPT Codes Coding - 95531 Large joint: 18313 - Large joint ([id number])
--- OUTSIDE RECORDS SUMMARY | 2024-07-30 12:29 | XMS_ITS | Encounter Summary ---
Author Organization [facility] Address [address] [place] [address] Care Team Providers Care Joinery Setter Out Name Role Phone Unavailable Primary Care Provider Unavailabl e Encounter Details Date Type Department Care Team (Late st Contact Info) Description 04/07/2024 Scanned Document [facility] [place] [address] [place] [address] Brenda Loving PA-C [address] [place] [address] Social History Tobacco Use Types Packs/Day Years Used Date Smoking Tobacco: Never Assessed Sex and Gender Information Value Date Recorded Sex Assigned at Female 07/25/2024 2:06 PM EDT Gender Identity Female 07/25/2024 2:06 PM EDT Sexual Orientation Not on file documented as of this encounter Plan of Treatment Upcoming Encounters Date Type Department Care Team (Late st Contact Info) Description 01/26/2025 2:00 PM EDT Office Visit [facility] [address], [address] [place] [phone] Nehemiah Kraft MD [address] [place] [address] documented as of this encounter Visit Diagnoses Not on filedocumented in this encounter
--- OUTSIDE RECORDS SUMMARY | 2024-07-30 12:29 | XMS_ITS | Clinical Summary ---
Author Organization [facility] Address [address] [address] Care Team Providers Care Post Graduate Intern Name Role Phone Emilio Magaña MD Primary Care Provider [phone] Family History Medical History Relation Comments Cancer [...] Colorectal Cancer Screening: Sigmoidoscopy 2013 Pneumococcal Vaccine: Peds ( 0 to 5 Years) and At-Risk Patients (6 to 49 Years) (2 of 2 - PPSV23 or PCV20) 03/27/2015 01/30/2015 Influenza Vaccine (Season Ended) 2024 01/31/20 15 Hepatitis B Vaccine Aged Out No longe r eligible based on patient's age to complete this topic Care Teams Post Graduate Intern Relationship Specialty Start Date End Date Emilio Magaña [place] [address] PCP - General 05/01/20
--- OUTSIDE RECORDS SUMMARY | 2024-07-30 12:29 | XMS_ITS | Clinical Summary ---
Author Organization [facility] Address [address] [place] [address] Care Team Providers Care Tube Machine Operator Helper Name Role Phone Unavailable Primary Care Provider [...] Encounters Date Type Department Care Team Description 07/28/2024 2:15 PM EDT Office Visit [facility] [address] [phone] Nehemiah Kraft MD Pain in throat (Primary Dx) 05/13/2024 8:45 AM EST Office Visit [facility] [address] [address] Nehemiah Kraft MD Oropharyngeal dysphagia (Primary Dx); Tonsillar hypertrophy; Globus sensation from Last 3 Months Social History Tobacco Use Types Packs/Day Years Used Date Smoking Tobacco: Never Assessed Sex and Gender Information Value Date Recorded Sex Assigned at Female 07/25/2024 2:06 PM EDT Gender Identity Female 07/25/2024 2:06 PM EDT Sexual Orientation Not on file Last Filed Vital Signs Vital Sign Reading Time Taken Comments Blood Pressure - - Pulse - - Temperature - - Respiratory Rate - - Oxygen Saturation - - Inhaled Oxygen Concentration - - Weight 72.1 kg (159 lb) 07/28/2024 2:06 PM EDT Height 154.9 cm (5' 1 ) 07/28/2024 2:06 PM EDT Body Mass Index 30.04 07/28/2024 2:06 PM EDT Plan of Treatment Upcoming Encounters Date Type Department Care Team (Late st Contact Info) Description 01/26/2025 2:00 PM EDT Office Visit [facility] [address], [address] [place] [phone] Nehemiah Kraft MD [address] [place] [address] Health Maintenance Due Date Last Done Comments Hepatitis C Virus Screening 1964 HIV Screening 1977 DTaP/Tdap/Td Vaccines (1 - Tdap) 1983 Pap Smear (Ages 21-65) 1985 Mammogram 2004 Colonoscopy 2009 Pneumococcal Vaccines 50+ (1 of 1 - PCV) 2014 Zoster (Shingles) Vaccine (1 of 2) 2014 Influenza Vaccine 11/20/2023 01/29/2023, , 02/06/2021, Additional history exists COVID-19 Vaccine (2023- season) 2023 03/29/2023, 02/24/2021, 05/14/2020, Additional history exists RSV Vaccine 60 years and older and Patients (1 - 1-dose 75+ series) 2039 Hepatitis B Vaccines Aged Out No long er eligible based on patient's age to complete this topic
--- OUTSIDE RECORDS SUMMARY | 2024-07-30 12:29 | XMS_ITS | Encounter Summary ---
Author Organization [facility] Address [address] [place] [address] Care Team Providers Care Leno Sewer Name Role Phone Unavailable Primary Care Provider Unavailabl e Reason for Visit * Reason Comments Follow-up Dysphagia Encounter Details Date Type Department Care Team ([facility] st Contact Info) Description 07/28/2024 2:15 PM EDT Office Visit [facility] [address] [phone] Nehemiah Kraft MD [address] [facility] [place], [place] [id number] Pain in throat (Primary Dx) Social History Tobacco Use Types Packs/Day Years [...] Mass Index 30.04 07/28/2024 2:06 PM EDT documented in this encounter Progress Notes * Nehemiah Kraft MD - 07/28/2024 2:15 PM EDT Images from the original note were not included. [address] [place] [address], [address] [facility] [phone] Loc: [phone] Encounter Date: 07/28/2024 Name: Shanika Carrillo : 1965 Head and Neck Surgical Oncology Follow Up ASSESSMENT/PLAN 59 y.o. female with a history of persistent left-sided throat irritation which is intermittent in nature. She was initially seen 3 months ago. She had a CT scan of the neck performed on 04/15/2024 at [facility] which identified a potential rim-enhancing lesion in the inferior aspect of the left tonsil. No obvious lesions were noted on her initial exam. She presents today for follow-up. On examination today, she has 1-2+ symmetric palatine tonsils with no mucosal ulcerations or masses. No palpable masses in the tonsil or base of tongue. No trismus. I do not appreciate any palpable cervical lymphadenopathy. I still do not appreciate any obvious areas of concern. I reassured her of my findings. Follow-up appointment offered in 6 months for reevaluation She should return sooner with any concerns Interval History This is a 59-year-old female who returns for follow-up. She continues to have intermittent left-sided throat irritation/discomfort. She denies any significant dysphagia. She denies any weight loss. She denies any otalgia. She denies any hoarseness. Physical examination General Appearance: Well nourished, NAD Voice: Strong, [...] as above, except pertinent/abnormal findings noted here: 1-2+ symmetrical palatine tonsils. 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 MDM I spent a total of 20 minutes managing this patient with time inclusive of chart review, imaging review and interpretation, laboratory review and interpretation, direct patient interaction inclusive of history taking, review of systems and examination, and counseling/coordination of care; exclusiveof time spent on procedures. This encounter required limited medical decision making and the aggregate of this process is detailed in the plan and elsewhere in the clinical encounter note. documented in this encounter Plan of Treatment Upcoming Encounters Date Type Department Care Team (Late st Contact Info) Description 01/26/2025 2:00 PM EDT Office Visit [facility] [address], [address] [place] [phone] Nehemiah Kraft MD [address] [place] [address] documented as of this encounter Visit Diagnoses Diagnosis Pain in throat- Primary Throat pain documented in this encounter
== END 2024-07-30 11:52 | disposition home or self-care (01) ==
LOC: HO.HOS 11:29
PROVIDERS: PCP Internal Medicine; Visit Provider Physician Assistant
DX: M75.102 Unspecified rotator cuff tear or rupture of left shoulder, not specified as traumatic (principal)
CPT/HCPCS: 20610; 99213

== ENCOUNTER → 2024-07-30 11:28 | Outpatient (BNVA) | payer OTHER, SELFPAY | PROVIDERS: PCP Internal Medicine; Visit Provider Physician Assistant | DX: M75.102 Unspecified rotator cuff tear or rupture of left shoulder, not specified as traumatic (principal) | CPT/HCPCS: 20610; J1010; J2003 ==

== ENCOUNTER 2024-10-14 16:27 | Outpatient (AMB) | payer OTHER, SELFPAY ==
--- NOTE | 2024-10-14 16:28 | MHC.OFFVIS ---
Vital Signs 10/14/24 16:34 Height 5 ft 1 in Weight 157 lb BMI 29.7 BP 120/72 Blood Pressure Location Rt brachial Position Sitting Pulse 68 Pulse Source Pulse Oximeter Pulse Oximetry (%) 97 Oxygen Delivery Method Room Air Intake Visit Reasons: 6 month follow up Intake Note: Est pt for mgmt of GERD, HP, hemorrhoids + CIC. CC; Culture Room Worker Required: No Accompanied by: Self / Same As Patient Allergies bee pollen (BEE STINGS) Allergy (Unknown, Verified 10/14/24 16:30) SWELLING acetaminophen (From Percocet) Adverse Reaction (Unknown, Verified 10/14/24 16:30) Nausea and Vomiting oxycodone (From Percocet) Adverse Reaction (Unknown, Verified 10/14/24 16:30) Nausea and Vomiting HPI HPI 6 month follow up: Details: Assessment & Plan (1) Colitis: Comment: IBD studies negative, but fecal calprotectin and CRP elevated, aphthous ulcers on 2022 colonoscopy Code(s): K52.9 - Noninfective gastroenteritis and colitis, unspecified Category: Medical (2) Tubular adenoma of colon: Comment: 2022 scope= TA repeat in 5 years Code(s): D12.6 - Benign neoplasm of colon, unspecified Category: Medical (3) GERD (gastroesophageal reflux disease): Code(s): K21.9 - Gastro-esophageal reflux disease without esophagitis Category: Medical Qualifiers: Esophagitis presence: without esophagitis Qualified Code(s): K21.9 - Gastro-esophageal reflux disease without esophagitis (4) Erosive gastritis: Code(s): K29.60 - Other gastritis without bleeding Category: Medical (5) H. pylori infection: Comment: Sent for allergy testing and NOT allergic to PCN., She has failed every known treatment Prevpac, Helidac, Levaquin a/amoxicillin, Rifabutin/ amoxicillin. At this time will managing her symptoms since we have been unable to eradicate this resistant microbe. There was 1 antibiotics did not tolerate I am uncertain if it was rifabutin Code(s): A04.8 - Other specified bacterial intestinal infections Category: Medical Plan SHE SPEAKS ANDORRAN. She continues on AcipHex and Carafate. She is doing well, but had 2 BM's with blood on the TT. WIll rx roid cream. She is going to [place] for T day!! ROV 6 mos. Medications: New hydrocortisone 2.5% (Proctosol HC) BE SURE TO INCLUDE RECTAL APPICATOR!! 1 appl HI BID 30 grams 6RF hemorrhoids K64.9 - Unspecified hemorrhoids Refilled sucralfate (Carafate) 1 g PO BID 60 tabs 6RF rabeprazole 20 mg PO BID 60 tabs 6RF 30 days A04.8 - Other specified bacterial intestinal infections, K21.9 - Gastro-esophageal reflux disease without esophagitis, K29.60 - Other gastritis without bleeding TODAYS VISIT Her sx remain controlled from her perspective. She continues on AcipHex and Carafate, and Proctosol cream which resolved her bleeding. Had large cecal polyp in 2022, repeat in 3 year sof next year. Has chronic HP, ? if EGD needed. ROV 6 mos. [facility] Medical History (Updated 10/14/24 @ 17:00 by DENISE Dey) Tubular adenoma of colon Painful arc syndrome of left shoulder Tonsillar erythema Obesity Herpes simplex antibody positive Family history of polyps in the colon Abnormal endometrial ultrasound Bereavement reaction Skin lesion Painful arc syndrome of right shoulder Herpes zoster Encounter for general adult medical examination with abnormal findings Lumbar pain Encounter for routine gynecological examination Colitis Pelvic pain in female Fibroids Vaginal dryness Candidiasis of mouth and esophagus Erosive gastritis GERD (gastroesophageal reflux disease) Encounter to discuss test results Well woman exam with routine gynecological exam Impaired fasting blood sugar Difficulty sleeping Surgical History History of endoscopy History of esophagogastroduodenoscopy (EGD) Hx of colonoscopy History of radical nephrectomy History of hysteroscopy Hx of cholecystectomy Breast mass, right History of tubal ligation Family History Father Stomach cancer Mother HTN (hypertension) Diabetes mellitus High cholesterol CVD (cardiovascular disease) Maternal Aunt Breast cancer Other Mental health disorder Substance use disorder Social History Housing: House Alcohol intake: never Patient Tobacco Use Status: Never used Tobacco e-Cigarette/Vaping Use: Never Used service: No Current occupational status: employed 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 Gender identity: Female Cognitive needs: No Hearing needs: Yes Vision needs: No Female Reproductive History Menstrual Age of Menarche: 11 Review of Systems Const Denies fatigue, Denies fever(s), Denies night sweats, Denies poor appetite and Denies weight loss ENT Reports Normal hearing present, Denies dental pain, Denies dysphagia, Denies hearing loss, Denies mouth pain, Denies odynophagia, Denies throat swelling, Denies tongue swelling and Reports other (Dentition adequate) Card Reports no additional complaints Resp Reports no additional complaints GI Details: Denies abdominal pain, Denies melena, Denies bloating, Denies hematochezia, Denies constipation, Denies GI cramping, Denies dysphagia, Denies excessive flatus, Denies early satiety, Reports heartburn, Denies diarrhea, Denies nausea, Denies odynophagia, Denies vomiting and Denies hematemesis Skin/Breast Denies pruritus, Denies lesions, Denies rash and Denies jaundice Neuro Reports Normal hearing present and Denies Abnormal speech present Endo Denies fatigue Aller/Immun Denies throat swelling and Denies tongue swelling Physical Exam Vital Signs: Last Vital Signs Pulse 68 10/14/24 16:34 BP 120/72 10/14/24 16:34 Pulse Ox 97 10/14/24 16:34 Oxygen Delivery Method Room Air 10/14/24 16:34 BMI result Body Mass Index 29.7 Const General: cooperative, no acute distress, well developed and well groomed Nutritional Appearance: well nourished and obese Orientation/consciousness: oriented to person, oriented to place and oriented to time Limitations: No language barrier HEENT Head: Yes normocephalic and Yes atraumatic Eyes General: appearance normal, both eyes and all related structures Pupils: Equal, round and reactive pupils present Neck Neck: Yes normal visual inspection and Yes no lymphadenopathy Thyroid: Thyroid normal Resp Effort & Inspection: normal respiratory effort and able to speak in complete sentences Auscultation: clear to auscultation bilaterally Cardio Rate: regular rate Rhythm: regular rhythm Heart sounds: Normal, physiologic split S2 sound present Peripheral pulses: radial pulses present and posterior tibial pulses present GI Inspection: No distended, Yes Abdominal panniculus present and Yes obesity Palpation (GI): Soft to palpation, nontender, no guarding, not rigid and No hepatosplenomegaly present Percussion: Yes normal to percussion Auscultation: normal bowel sounds Rectal Exam - Female: deferred Skin General skin exam: no rashes or lesions noted, turgor normal, skin not dry, no jaundice, No spider nevi and no striae Rashes: no rashes Nails: normal Neuro General: oriented to person, oriented to place and oriented to time Cranial nerves: Yes Equal, round and reactive pupils present and Yes Normal hearing present Speech: No Abnormal speech present Extrem General: Yes normal to inspection, No clubbing, No cyanosis and No edema Psych Appearance: grossly normal and well kempt Mental Status: mental status grossly normal Speech and movement: Normal speech and movement present Affect: normal affect Attitude: cooperative Thought process: Normal thought process present and not confabulating Thought content: Normal thought content present Insight: Fair insight present (Psych) and Limited insight present (Psych) Judgement: Fair judgement present (Psych) and Limited judgement present (Psych) Assessment & Plan Assessment & Plan (1) GERD (gastroesophageal reflux disease): Code(s): K21.9 - Gastro-esophageal reflux disease without esophagitis Category: Medical Qualifiers: Esophagitis presence: without esophagitis Qualified Code(s): K21.9 - Gastro-esophageal reflux disease without esophagitis (2) Erosive gastritis: Code(s): K29.60 - Other gastritis without bleeding Category: Medical (3) Constipation: Code(s): K59.00 - Constipation, unspecified Category: Medical (4) Colitis: Comment: IBD studies negative, but fecal calprotectin and CRP elevated, aphthous ulcers on 2022 colonoscopy Code(s): K52.9 - Noninfective gastroenteritis and colitis, unspecified Category: Medical (5) H. pylori infection: Comment: Sent for allergy testing and NOT allergic to PCN., She has failed every known treatment Prevpac, Helidac, Levaquin a/amoxicillin, Rifabutin/ amoxicillin. At this time will managing her symptoms since we have been unable to eradicate this resistant microbe. There was 1 antibiotics did not tolerate I am uncertain if it was rifabutin Code(s): A04.8 - Other specified bacterial intestinal infections Category: Medical Plan Her sx remain controlled from her perspective. She continues on AcipHex and Carafate, and Proctosol cream which resolved her bleeding. Had large cecal polyp in 2022, repeat in 3 year sof next year. Has chronic HP, ? if EGD needed. ROV 6 mos. Medications: Refilled hydrocortisone 2.5% (Proctosol HC) BE SURE TO INCLUDE RECTAL APPICATOR!! 1 appl HI BID 30 grams 6RF hemorrhoids K64.9 - Unspecified hemorrhoids sucralfate (Carafate) 1 g PO BID 60 tabs 6RF rabeprazole 20 mg PO BID 60 tabs 6RF 30 days A04.8 - Other specified bacterial intestinal infections, K21.9 - Gastro-esophageal reflux disease without esophagitis, K29.60 - Other gastritis without bleeding Coding Level of Care Code Est Pt Level 3 (13143) Diagnoses Gastroesophageal reflux disease without esophagitis K21.9 Esophagitis presence: without esophagitis Erosive gastritis K29.60 Constipation K59.00 Colitis K52.9 H. pylori infection A04.8
[2024-10-14 16:34] VITALS: BP 120/72; PULSE 68; O2SAT 97; BMI 29.7
--- OUTSIDE RECORDS SUMMARY | 2024-10-14 19:46 | XMS_ITS | Clinical Summary ---
Author Organization [facility] Address [address] [place] [address] Care Team Providers Care Ict Support Technicians Name Role Phone Unavailable Primary Care Provider Unavailabl e Allergies No known active allergies Medications Procto-Med HC 2.5 % rectal cream APPLY 1 APPLICATION RECTALLY TWO TIMES A DAY FOR HEMORRHOIDS 4 Active RABEprazole (ACIPHEX) 20 MG tablet 1 tablet by Mouth/Oral Cavity route every 12 hours. 4 Active Active Problems No known active problems Encounters Date Type Department Care Team Description 07/28/2024 2:15 PM EDT Office Visit [facility] [address], [address] [place] [phone] Nehemiah Kraft MD Pain in throat (Primary Dx) from Last 3 Months Social History Tobacco Use Types Packs/Day Years Used Date Smoking Tobacco: Never Assessed Comments Unknown Sex and Gender Information Value Date Recorded Sex Assigned at Female 07/25/2024 2:06 PM EDT Legal Sex Female 6:36 PM EST Gender Identity Female 07/25/2024 2:06 PM EDT [...] Description 01/26/2025 2:00 PM EDT Office Visit [facility] [address], [address] [place] [phone] Nehemiah Kraft MD [address] [place], [place] [phone] Health Maintenance Due Date Last Done Comments Hepatitis C Virus Screening 1964 HIV Screening 1977 DTaP/Tdap/Td Vaccines (1 - Tdap) 1983 Pap Smear (Ages 21-65) 1985 Mammogram 2004 Colonoscopy 2009 Pneumococcal Vaccines 50+ (1 of 1 - PCV) 2014 Zoster (Shingles) Vaccine (1 of 2) 2014 COVID-19 Vaccine ( season) 2023 03/29/2023, 02/24/2021, 05/14/2020, Additional history exists Influenza Vaccine 11/19/2024 01/29/2023, , 02/06/2021, Additional history exists RSV Vaccine 60 years and older and Patients (1 - 1-dose 75+ series) 2039 Hepatitis B Vaccines Aged Out No long er eligible based on patient's age to complete this topic Insurance [facility]
== END 2024-10-14 17:00 ==
LOC: HO.HGI 16:27
PROVIDERS: PCP Internal Medicine; Visit Provider Nurse Practitioner
DX: K21.9 Gastro-esophageal reflux disease without esophagitis (principal); K29.60 Other gastritis without bleeding; K59.00 Constipation, unspecified; K52.9 Noninfective gastroenteritis and colitis, unspecified; A04.8 Other specified bacterial intestinal infections
CPT/HCPCS: 99213

== ENCOUNTER 2025-02-04 08:07 | Outpatient (REF) | payer OTHER, SELFPAY ==
--- NOTE | ~2025-02-04 | XR_ITS ---
CLINICAL HISTORY: M25.519 - Pain in unspecified shoulder 3 view right shoulder Comparison: 02/21/2023 Findings: No fractures or dislocations. No significant loss of joint space or osteophytes. No erosions. No radiopaque foreign body. IMPRESSION: 1. No acute findings This document has been electronically signed by: Joseph Back MD on 02/06/2025 09:49:21
--- OUTSIDE RECORDS SUMMARY | 2025-02-07 08:13 | XMS_ITS | Clinical Summary ---
Author Organization [facility] Facility Address [address] [address] Care Team Providers Care Environmental Health Technologist Name Role Phone Emilio Magaña MD Primary Care Provider [phone] Family History Medical History Relation Comments Cancer [...] age to complete this topic Care Teams Environmental Health Technologist Relationship Specialty Start Date End Date Emilio Magaña MD [address] [place] [id number] PCP - General 05/01/20
--- OUTSIDE RECORDS SUMMARY | 2025-02-07 08:13 | XMS_ITS | Encounter Summary ---
Author Organization [facility] Address [address] [place] [address] Care Team Providers Care Manager Educational Name Role Phone Unavailable Primary Care Provider Unavailabl e Encounter Details Date Type Department Care Team (Late st Contact Info) Description 04/07/2024 Scanned Document [facility] [address] [place] [address] Brenda Loving PA-C [address] [place] [address] Social History Tobacco Use Types [...] Visit [facility] [place] [address] [facility], [facility] [address] [place] [address] Nehemiah Kraft MD [address] [place] [address] documented as of this encounter Visit Diagnoses Not on filedocumented in this encounter
--- OUTSIDE RECORDS SUMMARY | 2025-02-07 08:13 | XMS_ITS | Clinical Summary ---
Author Organization [facility] Address [address] [place] [address] Care Team Providers Care Repair Operator Name Role Phone Unavailable Primary Care Provider [...] Description 02/10/2025 3:15 PM EDT Office Visit [facility] [address], [address] [place] [address] Nehemiah Kraft MD [address] [facility] [place] [address] Health Maintenance Due Date Last Done Comments [...] patient's age to complete this topic Insurance [facility]
== END 2025-02-04 08:08 | disposition home or self-care (01) ==
LOC: HO.HOSX 08:07
PROVIDERS: Visit Provider Physician Assistant
DX: M75.102 Unspecified rotator cuff tear or rupture of left shoulder, not specified as traumatic (principal); G89.29 Other chronic pain; M25.511 Pain in right shoulder
CPT/HCPCS: 20610; 73030; J0665; J1100; J2003

== ENCOUNTER 2025-02-04 08:18 | Outpatient (AMB) | payer OTHER, SELFPAY ==
--- NOTE | 2025-02-04 08:34 | MHC.OFFVIS ---
Intake Visit Reasons: INJ- Right shoulder inj last 02/21/23 Intake Note: Shanika is a 59 year old right hand dominant female who presents today for a repeat injection for her right shoulder, last injection was on 02/21/23. Patient reports her last injection gave her relief and she would like to repeat. Allergies bee pollen (BEE STINGS) Allergy (Unknown, Verified 02/04/25 08:46) SWELLING acetaminophen (From Percocet) Adverse Reaction (Unknown, Verified 02/04/25 08:46) Nausea and Vomiting oxycodone (From Percocet) Adverse Reaction (Unknown, Verified 02/04/25 08:46) Nausea and Vomiting HPI HPI INJ- Right shoulder inj last 02/21/23: Details: Ms. Gerardo Ortega is a 59-year-old female who presents to the office for chronic right shoulder pain. Last cortisone injection was 02/21/2023 which gave her great relief. She is looking to repeat injection today in the office. [facility] Medical History (Updated 10/14/24 @ 17:00 by DENISE Dey) Tubular adenoma of colon Painful arc syndrome of left shoulder Tonsillar erythema Obesity Herpes simplex antibody positive Family history of polyps in the colon Abnormal endometrial ultrasound Bereavement reaction Skin lesion Painful arc syndrome of right shoulder Herpes zoster Encounter for general adult medical examination with abnormal findings Lumbar pain Encounter for routine gynecological examination Colitis Pelvic pain in female Fibroids Vaginal dryness Candidiasis of mouth and esophagus Erosive gastritis GERD (gastroesophageal reflux disease) Encounter to discuss test results Well woman exam with routine gynecological exam Impaired fasting blood sugar Difficulty sleeping Surgical History History of endoscopy History of esophagogastroduodenoscopy (EGD) Hx of colonoscopy History of radical nephrectomy History of hysteroscopy Hx of cholecystectomy Breast mass, right History of tubal ligation Family History Father Stomach cancer Mother HTN (hypertension) Diabetes mellitus High cholesterol CVD (cardiovascular disease) Maternal Aunt Breast cancer Other Mental health disorder Substance use disorder Social History Housing: House Alcohol intake: never Patient Tobacco Use Status: Never used Tobacco e-Cigarette/Vaping Use: Never Used service: No Current occupational status: employed 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 NVI Office Procedures AMB Joint Injection/Aspiration Joint Injection/Aspiration Primary Site: right shoulder Prep: site was prepped using aseptic technique, ethochloride spray was applied and injection warnings given Injected: 40 mg of, with 3 mL of, 1% plain lidocaine, 0.25% bupivacaine, in the subcromial space and decadron Approach Used: posterolateral Procedure: The patient tolerated the procedure well, but had some pain with the injection and there was some relief with the local anesthesia Coding - Large joint Procedure code (CPT) selection complete Assessment & Plan Assessment & Plan (1) Painful arc syndrome of left shoulder: Code(s): M75.102 - Unspecified rotator cuff tear or rupture of left shoulder, not specified as traumatic Category: Medical Plan Ms. Gerardo Ortega is a 59-year-old female who presents to the office for chronic right shoulder pain. Last cortisone injection was 02/21/2023 which gave her great relief. She is looking to repeat injection today in the office. The patient was offered a cortisone injection in the right shoulder. The patient was explained the risks, benefits, and alternatives to receiving this injection. After receiving consent for the injection, the patient had the procedure done while in the office today. The patient tolerated the procedure well with no complications. Follow-up will be p.r.n., or sooner if needed X-rays of the right shoulder which were obtained while in the office today and were reviewed by me, Kennedi Boyd PA-C, revealed degenerative changes. Orders: Orders XR shoulder RT min 2V Today M25.519 - Pain in unspecified shoulder Coding Level of Care Code Est Pt Level 3 (58764) Diagnoses Painful arc syndrome of left shoulder M75.102 CPT Codes Coding - Large joint: 25595 - Large joint ([id number])
--- OUTSIDE RECORDS SUMMARY | 2025-02-04 08:35 | XMS_ITS | Encounter Summary ---
Author Organization [facility] Address [address] [place] [address] Care Team Providers Care Qa Internship Name Role Phone Unavailable Primary Care Provider Unavailabl e Encounter Details Date Type Department Care Team (Late st Contact Info) Description 04/07/2024 Scanned Document [facility] [address] [place] [address] Brenda Loving PA-C [address] [place] [address] Social History Tobacco Use Types [...] Care Team (Late st Contact Info) Description 02/10/2025 3:15 PM EDT Office Visit [facility] [place] [address] [facility] [address] [place] [address] Nehemiah Kraft MD [address] [place] [address] documented as of this encounter Visit Diagnoses Not on filedocumented in this encounter
--- OUTSIDE RECORDS SUMMARY | 2025-02-04 08:35 | XMS_ITS | Clinical Summary ---
Author Organization [facility] Address [address] [address] Care Team Providers Care Policy Change Clerks Supervisor Name Role Phone Emilio Magaña MD Primary Care Provider Family History Medical History Relation Comments Cancer [...] Colorectal Cancer Screening: Sigmoidoscopy 2013 Pneumococcal Vaccine: 50+ Ye ars (2 of 2 - PPSV23, PCV20, or PCV21) 03/27/2015 01/30/2015 Influenza Vaccine (#1) 2024 01/30/2015 Pneumococcal Vaccine: Peds ( 0 to 5 Years) and At-Risk Patients (6 to 49 Years) Discontinued 01/30/2015 Hepatitis B Vaccine Aged Out No longe r eligible based on patient's age to complete this topic Care Teams Policy Change Clerks Supervisor Relationship Specialty Start Date End Date Emilio Magaña MD [address] [place] [id number] PCP - General 05/01/20
--- OUTSIDE RECORDS SUMMARY | 2025-02-04 08:35 | XMS_ITS | Clinical Summary ---
Author Organization [facility] Address [address] [place] [address] Care Team Providers Care Learning Manager Name Role Phone Unavailable Primary Care Provider Unavailabl e Allergies No known active allergies Medications Procto-Med HC 2.5 % rectal cream APPLY 1 APPLICATION RECTALLY TWO TIMES A DAY FOR HEMORRHOIDS 4 Active RABEprazole (ACIPHEX) 20 MG tablet 1 tablet by Mouth/Oral Cavity route every 12 hours. 4 Active Active Problems No known active problems Social History Tobacco Use Types Packs/Day Years [...] Description 02/10/2025 3:15 PM EDT Office Visit [facility] [address], [address] [place] [address] Nehemiah Kraft MD [address] [place] [address] Health Maintenance Due Date Last Done Comments Hepatitis C Virus Screening 1965 HIV Screening 1977 DTaP/Tdap/Td Vaccines (1 - Tdap) 1983 Pap Smear (Ages 21-65) 1985 Mammogram 2004 Colonoscopy 2009 Pneumococcal Vaccines 50+ (1 of 1 - PCV) 2014 Zoster (Shingles) Vaccine (1 of 2) 2014 Influenza Vaccine 11/19/2024 01/29/2023, , 02/06/2021, Additional history exists COVID-19 Vaccine (2024- season) 2024 03/29/2023, 02/24/2021, 05/14/2020, Additional history exists RSV Vaccine 50 years and older and Patients (1 - 1-dose 75+ series) 2039 Hepatitis B Vaccines Aged Out No long er eligible based on patient's age to complete this topic Insurance [facility]
== END 2025-02-04 08:47 | disposition home or self-care (01) ==
LOC: HO.HOS 08:19
PROVIDERS: PCP Internal Medicine; Visit Provider Physician Assistant
DX: M75.102 Unspecified rotator cuff tear or rupture of left shoulder, not specified as traumatic (principal)
CPT/HCPCS: 20610; 99213

== ENCOUNTER → 2025-02-04 08:24 | Outpatient (BNV) | payer OTHER, SELFPAY | PROVIDERS: Visit Provider Specialist | DX: M25.511 Pain in right shoulder (principal) | CPT/HCPCS: 73030 ==

== ENCOUNTER 2025-02-16 13:39 | Outpatient (AMB) | payer OTHER, SELFPAY ==
[2025-02-16 13:56] VITALS: BP 116/80; PULSE 88; RESP 16; TEMP 36.9; O2SAT 98; BMI 31.0
--- NOTE | 2025-02-16 13:56 | A.OFFPC_ITS ---
Vital Signs 02/16/25 13:56 Height 5 ft 1 in Weight 164 lb BMI 31.0 BP 116/80 Blood Pressure Location Lt brachial Position Sitting Respiration 16 Pulse 88 Pulse Source Pulse Oximeter Temp 98.5 F Temp Source Oral Pulse Oximetry (%) 98 Oxygen Delivery Method Room Air Intake Visit Reasons: CPE Allergies bee pollen (BEE STINGS) Allergy (Unknown, Verified 02/04/25 08:46) SWELLING acetaminophen (From Percocet) Adverse Reaction (Unknown, Verified 02/04/25 08:46) Nausea and Vomiting oxycodone (From Percocet) Adverse Reaction (Unknown, Verified 02/04/25 08:46) Nausea and Vomiting Medication List - Last Reconciled 02/16/25 by Emilio Magaña MD amitriptyline 25 mg PO BEDTIME 30 days cinnamon bark (Cinnamon) 1,000 mg PO DAILY hydrocortisone 2.5% (Proctosol HC) 1 appl FL BID ketoconazole 2% 1 appl topical DAILY PRN [omega 3 fish oil PO] omega-3 fatty acids 500 mg PO DAILY rabeprazole 20 mg PO BID 30 days sucralfate (Carafate) 1 g PO BID valacyclovir 2,000 mg (2 x 1 gram) PO BID PRN 1 day Tobacco use date assessed: 05/14/24 Dental Screening Dental Screen Date: 05/14/24 HPI CPE HPI Details History of Present Illness The patient is a 59-year-old female presenting for a physical examination. Chronic Throat Pain: - The patient reports persistent throat pain and problems with her tonsils. - A previous CT scan suggested findings were likely due to inflammation and infection. - She was seen by an ENT specialist in [facility] who did not offer treatment but advised her to return if problems persisted. - The pain started after a dental cleani ng and has not improved, and she also experienced hoarseness. - Patient mentions a prior ultrasound maier ggested another finding, and she thinks she might have a tonsil stone. Prediabetes: - Labs from May revealed a hemoglob in A1c of 6.1%, confirming a diagnosis of prediabetes. Vitamin D Deficiency: - Lab work from May indicated a low vitamin D level. Migraine Headaches: - The patient was prescribed amitriptyli ne 25 mg for migraine prevention but does not take it because it causes nausea. - She uses Tylenol, which offers minimal relief. - She cannot take NSAIDs due to her sing le kidney and because they induce nausea and vomiting. Gastroesophageal Reflux Disease: - The patient reports her acid reflux is much better while taking rabeprazole. Health Maintenance: - The patient is established with gastro enterology at [facility] and is due for a colonoscopy in two years. - She had a mammogram in April of this year and is due for another in March. - Her last gynecological exam was with Paola Zepeda in 2020, but she has had difficulty scheduling a Pap smear due to frequent appointment cancellations. - She completed a bone density scan at [facility]. - She received her annual flu vaccine as required by her employer. Medical History: - Obesity (BMI 31.0) - Migraine headaches - Congenital solitary kidney - Osteopenia - History of tubular adenoma of the colo n - Prediabetes - Vitamin D deficiency - Gastroesophageal reflux disease Surgical History: - History of colonoscopy with removal of tubular adenoma. Social History: - Employment: Works at [employer]. - Insurance: [employer]. Health Maintenance - Mammogram: Completed in April of year, with the next one due in March. - Colonoscopy: Next screening is due in two years. - Pap smear: Patient is having difficult y scheduling an appointment. - Bone Density Scan: Recently completed at [facility]. - Immunizations: Received the flu vaccin e for work. Diagnostic results - Lab results from May: - CBC: Normal. - Creatinine: 1.05 mg/dL with a GFR of 6 1. - Liver enzymes: Normal. - LDL cholesterol: 105 mg/dL. - Total cholesterol: 150 mg/dL. - Hemoglobin A1c: 6.1%. - Vitamin D: Low. - Imaging and Tests: - CT scan of the tonsil area: Findings w ere suggestive of inflammation and infection. - Mammogram (April 2022): Completed. - Bone density scan: Completed. Patient Instructions - You will be given a prescription for a n antibiotic to see if it helps your sore throat. If it does not get better, you will need to get a second opinion from a throat specialist (ENT). - A referral will be placed for you to s aj an ENT. - A referral will be placed for you to s aj a new OB-ASSISTANT SHIFT SUPERVISOR at [facility] for your annual Pap smear. - Please get your blood tests done , pat ient would like to go to [facility] order provided - Start taking vitamin D for your low le vels. A prescription will be sent to your pharmacy, but you can also buy it over the counter. - Avoid taking Tylenol if it does not he lp your headaches, as it can be stressful for your liver. - Do not take anti-inflammatory medicine s like Advil or ibuprofen because you only have one kidney. - Please schedule a follow-up appointmen t in one year, or sooner if you have any problems. Review of Systems - General: No fever no chills - Neurological: No headaches no dizzin ess - Ear nose throat: No sore throat no hearing difficulty no ear pain - Cardiovascular: No syncope, no chest pain, no palpitations - Gastrointestinal: No nausea vomiting or diarrhea - Endocrine: No polyuria polydipsia no heat intolerance - Genitourinary: No dysuria - Skin: No new complaints Physical Exam General: Cooperative, healthy appearing, comfortable, no acute distress Orientation: Patient oriented x3 Limitations: None Head: Normal to inspection Ears: Within normal limit visually Nose: Normal external nose present, tonsils erythema noted mostly on the left side without any white patches Face and sinus: Normal facial exam Eyes: Appearance normal, extraocular movement intact pupils reactive Neck: Normal visual inspection and supple, no glands felt Respiratory: Normal respiratory effort and able to speak in complete sentences. Clear to auscultation, no stridor Cardiovascular: S1 and S2 RRR Breast exam benign GI: Normal to inspection. Soft to palpation and nontender Skin: Turgor normal, no acute findings Neuro: Patient oriented x3, motor sensory intact, balance intact, tandem pass Extremities: Normal to inspection, no swelling . [facility] Medical History Encounter for routine gynecological examination Encounter for general adult medical examination with abnormal findings Tubular adenoma of colon Painful arc syndrome of left shoulder Tonsillar erythema Obesity Herpes simplex antibody positive Family history of polyps in the colon Abnormal endometrial ultrasound Bereavement reaction Skin lesion Painful arc syndrome of right shoulder Herpes zoster Lumbar pain Colitis Pelvic pain in female Fibroids Vaginal dryness Candidiasis of mouth and esophagus Erosive gastritis GERD (gastroesophageal reflux disease) Encounter to discuss test results Well woman exam with routine gynecological exam Impaired fasting blood sugar Difficulty sleeping Surgical History History of endoscopy History of esophagogastroduodenoscopy (EGD) Hx of colonoscopy History of radical nephrectomy History of hysteroscopy Hx of cholecystectomy Breast mass, right History of tubal ligation Family History Father Stomach cancer Mother HTN (hypertension) Diabetes mellitus High cholesterol CVD (cardiovascular disease) Maternal Aunt Breast cancer Other Mental health disorder Substance use disorder Social History Housing: House Alcohol intake: never Patient Tobacco Use Status: Never used Tobacco e-Cigarette/Vaping Use: Never Used service: No Current occupational status: employed 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 Gender identity: Female Cognitive needs: No Hearing needs: Yes Vision needs: No Female Reproductive History Menstrual Age of Menarche: 11 Questionnaire Thrive Questionnaire Date Thrive assessed: 05/11/24 I am a: Patient What is your living situation today?: I have a steady place to live Within the past 12 months, did the food you bought not last and you didn't have the money to get more?: Never true Within the past 12 months, did you worry whether your food would run out before you got money to buy more?: Never true Do you have trouble paying for medicines?: No Do you have trouble getting transportation to medical appointments?: No Do you have trouble paying your heating and electricity bill?: No Do you have trouble taking care of your child, family member or friend?: No Do you have trouble with day-to-day activities such as bathing, preparing meals, shopping, managing finances, etc.?: No Are you currently unemployed and looking for a job?: No Are you interested in more education?: No Please select the resources that you would like help with: None Currently or been in a relationship where the following occur: No concerns reported THRIVE Score: 0 MARY-7 AMB Questionnaire MARY-7 Date MARY - 7 assessed: 05/14/24 Source: Developed by Drs. Everton Calderón, Jane Spears, Romel Damon and colleagues, with an educational haja from [employer]. Physical exam (Primary Care) Vital Signs: Last Vital Signs Temp 98.5 F 02/16/25 13:56 Pulse 88 02/16/25 13:56 Resp 16 02/16/25 13:56 BP 116/80 02/16/25 13:56 Pulse Ox 98 02/16/25 13:56 Oxygen Delivery Method Room Air 02/16/25 13:56 BMI result Body Mass Index 31.0 Tobacco/Smoking Status: Tobacco use Status Tobacco use date assessed 05/14/24 02/16/25 13:57 Patient Tobacco Use Status Never used Tobacco 02/16/25 13:57 e-Cigarette/Vaping Use Never Used 02/16/25 13:57 Thrive Assessment: Date of Thrive Assessment Date Thrive assessed 05/11/24 02/16/25 13:57 Currently or been in a relationship where the following occur: No concerns reported Coding Level of Care Code Est Pt Level 3 (67422) Est Pt Prev Care 40-64y(31055) Diagnoses Encounter for general adult medical examination with abnormal findings Z00.01 Sensation of foreign body in throat R09.A2 Throat pain in adult R07.0 Lipid disorder E78.9 Impaired fasting blood sugar R73.01 Osteopenia, unspecified location M85.80 Osteopenia location: unspecified Class 1 obesity due to excess calories without serious comorbidity with body mass index (BMI) of 30.0 to 30.9 in adult E66.09; Z68.30 Body mass index: BMI 30.0-30.9 Obesity classification: adult class 1 (BMI 30 - 34.9) Serious obesity comorbidity presence: without serious comorbidity Vitamin D deficiency E55.9 Gastroesophageal reflux disease without esophagitis K21.9 Esophagitis presence: without esophagitis Solitary kidney, congenital Q60.0 Migraine without aura and without status migrainosus, not intractable G43.009 Intractability: not intractable Status migrainosus presence: without status migrainosus Assessment & Plan Assessment & Plan (1) Encounter for general adult medical examination with abnormal findings: Code(s): Z00.01 - Encounter for general adult medical examination with abnormal findings Category: Medical (2) Sensation of foreign body in throat: Code(s): R09.A2 - Foreign body sensation, throat Category: Medical (3) Throat pain in adult: Code(s): R07.0 - Pain in throat Category: Medical (4) Lipid disorder: Code(s): E78.9 - Disorder of lipoprotein metabolism, unspecified Category: Medical (5) Impaired fasting blood sugar: Code(s): R73.01 - Impaired fasting glucose Category: Medical (6) Osteopenia: Code(s): M85.80 - Other specified disorders of bone density and structure, unspecified site Category: Medical Qualifiers: Osteopenia location: unspecified Qualified Code(s): M85.80 - Other specified disorders of bone density and structure, unspecified site (7) Obesity due to excess calories: Code(s): E66.09 - Other obesity due to excess calories Category: Medical Qualifiers: Body mass index: BMI 30.0-30.9 Obesity classification: adult class 1 (BMI 30 - 34.9) Serious obesity comorbidity presence: without serious comorbidity Qualified Code(s): E66.09 - Other obesity due to excess calories; Z68.30 - Body mass index [BMI] 30.0-30.9, adult (8) Vitamin D deficiency: Code(s): E55.9 - Vitamin D deficiency, unspecified Category: Medical (9) GERD (gastroesophageal reflux disease): Code(s): K21.9 - Gastro-esophageal reflux disease without esophagitis Category: Medical Qualifiers: Esophagitis presence: without esophagitis Qualified Code(s): K21.9 - Gastro-esophageal reflux disease without esophagitis (10) Solitary kidney, congenital: Code(s): Q60.0 - Renal agenesis, unilateral Category: Medical (11) Migraine headache without aura: Code(s): G43.009 - Migraine without aura, not intractable, without status migrainosus Category: Medical Qualifiers: Intractability: not intractable Status migrainosus presence: without status migrainosus Qualified Code(s): G43.009 - Migraine without aura, not intractable, without status migrainosus Plan Chronic Throat Pain: - The patient reports persistent throat pain and problems with her tonsils. - A previous CT scan suggested findings were likely due to inflammation and infection. - She was seen by an ENT specialist in [place] who did not offer treatment but advised her to return if problems persisted. - The pain started after a dental cleaning and has not improved, and she also ex perienced hoarseness. - Patient mentions a prior ultrasound suggested another finding, and she thinks she might have a tonsil stone. Prediabetes: - Labs from May revealed a hemoglobin A1c of 6.1%, confirming a diagnosis of prediabetes. Vitamin D Deficiency: - Lab work from May indicated a low vitamin D level. Migraine Headaches: - The patient was prescribed amitriptyline 25 mg for migraine prevention but does not take it because it causes nausea. - She uses Tylenol, which offers minimal relief. - She cannot take NSAIDs due to her single kidney and because they induce nausea and vomiting. Gastroesophageal Reflux Disease: - The patient reports her acid reflux is much better while taking rabeprazole. Health Maintenance: - The patient is established with gastroenterology at [facility] and is due for a colonoscopy in two years. - She had a mammogram in April of this year and is due for another in March. - Her last gynecological exam was with Dr. Zepeda in 2020, but she has had d ifficulty scheduling a Pap smear due to frequent appointment cancellations. - She completed a bone density scan at [facility]. - She received her annual flu vaccine as required by her employer. Medical History: - Obesity (BMI 31.0) - Migraine headaches - Congenital solitary kidney - Osteopenia - History of tubular adenoma of the colon - Prediabetes - Vitamin D deficiency - Gastroesophageal reflux disease Surgical History: - History of colonoscopy with removal of tubular adenoma. Social History: - Employment: Works at [employer]. - Insurance: [employer]. Health Maintenance - Mammogram: Completed in April of this year, with the next one due in March. - Colonoscopy: Next screening is due in two years. - Pap smear: Patient is having difficulty scheduling an appointment. - Bone Density Scan: Recently completed at [facility]. - Immunizations: Received the flu vaccine for work. Diagnostic results - Lab results from May: - CBC: Normal. - Creatinine: 1.05 mg/dL with a GFR of 61. - Liver enzymes: Normal. - LDL cholesterol: 105 mg/dL. - Total cholesterol: 150 mg/dL. - Hemoglobin A1c: 6.1%. - Vitamin D: Low. - Imaging and Tests: - CT scan of the tonsil area: Findings were suggestive of inflammation and infection. - Mammogram (April 2022): Completed. - Bone density scan: Completed. Patient Instructions - You will be given a prescription for an antibiotic to see if it helps your sore throat. If it does not get better, you will need to get a second opinion from a throat specialist (ENT). - A referral will be placed for you to see an ENT. - A referral will be placed for you to see a new OB-ASSISTANT SHIFT SUPERVISOR at [facility] for your annual Pap smear. - Please get your blood tests done , patient would like to go to [facility] order provided - Start taking vitamin D for your low levels. A prescription will be sent to your pharmacy, but you can also buy it over the counter. - Avoid taking Tylenol if it does not help your headaches, as it can be stressful for your liver. - Do not take anti-inflammatory medicines like Advil or ibuprofen because you only have one kidney. - Please schedule a follow-up appointment in one year, or sooner if you have any problems. Orders: Orders Hemoglobin A1c Today E55.9 - Vitamin D deficiency, unspecified, E66.09 - Other obesity due to excess calories, E78.9 - Disorder of lipoprotein metabolism, unspecified, G43.009 - Migraine without aura, not intractable, without status migrainosus, K21.9 - Gastro-esophageal reflux disease without esophagitis, M85.80 - Other specified disorders of bone density and structure, unspecified site, Q60.0 - Renal agenesis, unilateral, R09.A2 - Foreign body sensation, throat, R73.01 - Impaired fasting glucose, Z00.01 - Encounter for general adult medical examination with abnormal findings, Z68.30 - Body mass index [BMI] 30.0- 30.9, adult TSH reflex Free T4 Today E55.9 - Vitamin D deficiency, unspecified, E66.09 - Other obesity due to excess calories, E78.9 - Disorder of lipoprotein metabolism, unspecified, G43.009 - Migraine without aura, not intractable, without status migrainosus, K21.9 - Gastro-esophageal reflux disease without esophagitis, M85.80 - Other specified disorders of bone density and structure, unspecified site, Q60.0 - Renal agenesis, unilateral, R09.A2 - Foreign body sensation, throat, R73.01 - Impaired fasting glucose, Z00.01 - Encounter for general adult medical examination with abnormal findings, Z68.30 - Body mass index [BMI] 30.0-30.9, adult Complete Blood Count Auto Diff Today E55.9 - Vitamin D deficiency, unspecified, E66.09 - Other obesity due to excess calories, E78.9 - Disorder of lipoprotein metabolism, unspecified, G43.009 - Migraine without aura, not intractable, without status migrainosus, K21.9 - Gastro-esophageal reflux disease without esophagitis, M85.80 - Other specified disorders of bone density and structure, unspecified site, Q60.0 - Renal agenesis, unilateral, R09.A2 - Foreign body sensation, throat, R73.01 - Impaired fasting glucose, Z00.01 - Encounter for general adult medical examination with abnormal findings, Z68.30 - Body mass index [BMI] 30.0-30.9, adult Comprehensive [place]. Panel Fast Today E55.9 - Vitamin D deficiency, unspecified, E66.09 - Other obesity due to excess calories, E78.9 - Disorder of lipoprotein metabolism, unspecified, G43.009 - Migraine without aura, not intractable, without status migrainosus, K21.9 - Gastro-esophageal reflux disease without esophagitis, M85.80 - Other specified disorders of bone density and structure, unspecified site, Q60.0 - Renal agenesis, unilateral, R09.A2 - Foreign body sensation, throat, R73.01 - Impaired fasting glucose, Z00.01 - Encounter for general adult medical examination with abnormal findings, Z68.30 - Body mass index [BMI] 30.0-30.9, adult Lipid Panel Today E55.9 - Vitamin D deficiency, unspecified, E66.09 - Other obesity due to excess calories, E78.9 - Disorder of lipoprotein metabolism, unspecified, G43.009 - Migraine without aura, not intractable, without status migrainosus, K21.9 - Gastro-esophageal reflux disease without esophagitis, M85.80 - Other specified disorders of bone density and structure, unspecified site, Q60.0 - Renal agenesis, unilateral, R09.A2 - Foreign body sensation, throat, R73.01 - Impaired fasting glucose, Z00.01 - Encounter for general adult medical examination with abnormal findings, Z68.30 - Body mass index [BMI] 30.0- 30.9, adult Referrals Ear/Nose/Throat Referral R07.0 - Pain in throat, R09.A2 - Foreign body sensation, throat DREDGE MASTER Referral Z01.419 - Encounter for gynecological examination (general) (routine) without abnormal findings Medications: New cholecalciferol (vitamin D3) 25 mcg PO DAILY 90 caps 1RF 90 days
--- OUTSIDE RECORDS SUMMARY | 2025-02-16 17:25 | XMS_ITS | Clinical Summary ---
Author Organization [facility] Address [address] [place] [address] Care Team Providers Care Milling Machine Set Up Operator Name Role Phone Unavailable Primary Care Provider Unavailabl e Allergies No known active allergies Medications Procto-Med HC 2.5 % rectal cream APPLY 1 APPLICATION RECTALLY TWO TIMES A DAY FOR HEMORRHOIDS 4 Active RABEprazole (ACIPHEX) 20 MG tablet 1 tablet by Mouth/Oral Cavity route every 12 hours. 4 Active Active Problems No known active problems Encounters Date Type Department Care Team Description 02/10/2025 3:15 PM EDT Office Visit [facility] [address], [address] [place] [id number] Nehemiah Kraft MD Pain in throat (Primary Dx); Oropharyngeal dysphagia; Laryngopharyngeal reflux (LPR); Dysphonia from Last 3 Months Social History Tobacco [...] - Inhaled Oxygen Concentration - - Weight 74.4 kg (164 lb) 02/10/2025 2:22 PM EDT Height 154.9 cm (5' 1 ) 02/10/2025 2:22 PM EDT Body Mass Index 30.99 02/10/2025 2:22 PM EDT Plan of Treatment Health Maintenance Due Date Last Done Comments Hepatitis C Virus Screening 1964 HIV Screening 1977 DTaP/Tdap/Td Vaccines (1 - Tdap) 1983 Pap Smear (Ages 21-65) 1985 Mammogram 2004 Colonoscopy 2009 Pneumococcal Vaccines 50+ (1 of 1 - PCV) 2014 Zoster (Shingles) Vaccine (1 of 2) 2014 Influenza Vaccine 11/19/2024 01/29/2023, , 02/06/2021, Additional history exists COVID-19 Vaccine ( season) 2024 03/29/2023, 02/24/2021, 05/14/2020, Additional history exists RSV Vaccine 50 years and older and Patients (1 - 1-dose 75+ series) 2039 Hepatitis B Vaccines Aged Out No long er eligible based on patient's age to complete this topic [place] [address] [place] [address]
--- OUTSIDE RECORDS SUMMARY | 2025-02-16 17:25 | XMS_ITS | Encounter Summary ---
Author Organization [facility] Address [address] [place] [address] Care Team Providers Care Registry Rn Name Role Phone Unavailable Primary Care Provider Unavailabl e Encounter Details Date Type Department Care Team (Late st Contact Info) Description 04/07/2024 Scanned Document [facility] [place] [address] [place] [phone] Brenda Loving PA-C [address] [place] [address] Social History Tobacco Use Types Packs/Day Years Used Date Smoking Tobacco: Never Assessed Comments Unknown Sex and Gender Information Value Date Recorded Sex Assigned at Female 07/25/2024 2:06 PM EDT Legal Sex Female 6:36 PM EST Gender Identity Female 07/25/2024 2:06 PM EDT Sexual Orientation Not on file documented as of this encounter Plan of Treatment Not on file documented as of this encounter Visit Diagnoses Not on filedocumented in this encounter
--- OUTSIDE RECORDS SUMMARY | 2025-02-16 17:25 | XMS_ITS | Clinical Summary ---
Author Organization [facility] Facility Address [address] [address] Care Team Providers Care Spring Former Name Role Phone Emilio Magaña MD Primary Care Provider [phone] Family History Medical History Relation Comments Cancer [...] age to complete this topic Care Teams Spring Former Relationship Specialty Start Date End Date Emilio Magaña MD [address] [place] [address] PCP - General 05/01/20
--- OUTSIDE RECORDS SUMMARY | 2025-02-16 17:25 | XMS_ITS ---
Author Name [facility] Organization Unknown History of Medication Use Medication Directions Dispensed Refills Start Date End Date Stat us RABEprazole (ACIPHEX) 20 MG tablet 1 tablet by Mouth/Oral Cavity route every 12 hours. 03/01/2024 active Procto-Med HC 2.5 % rectal cream APPLY 1 APPLICATION RECTALLY TWO TIMES A DAY FOR HEMORRHOIDS 02/27/2024 active Problems Problem Status Onset Date Problem Type Date of Resolution Source Pain in throat active EncounterDiagnosisAct [facility] Oropharyngeal dysphagia active EncounterDiagnos isAct [facility] Laryngopharyngeal reflux (LPR) active EncounterDiagnosisAct [facility] Dysphonia active EncounterDiagnosisAct [facility] Encounters Encounter Type Encounter Reason Primary Diagnosis Location Date Ambulatory Follow-up Follow-up [facility] 02/10/2025 Ambulatory Follow-up Follow-up [facility] 07/28/2024 Ambulatory Dysphagia, oropharyngeal phase Dysphagia, oropharyngeal phase [facility] 05/13/2024 Ambulatory Neck Mass Neck Mass [facility] 03/30/2024 Care Team Organization Name Specialty Phone Email Start Date End Da te [facility] 04/02/2024 [facility] 03/12/2024
== END 2025-02-16 14:37 | disposition home or self-care (01) ==
LOC: HO.HMCC 13:40
PROVIDERS: PCP Internal Medicine; Visit Provider Internal Medicine
DX: Z00.01 Encounter for general adult medical examination with abnormal findings (principal); R09.A2 Foreign body sensation, throat; R07.0 Pain in throat; E55.9 Vitamin D deficiency, unspecified; E78.9 Disorder of lipoprotein metabolism, unspecified; R73.01 Impaired fasting glucose; M85.80 Other specified disorders of bone density and structure, unspecified site; E66.09 Other obesity due to excess calories; Z68.30 Body mass index [BMI] 30.0-30.9, adult; K21.9 Gastro-esophageal reflux disease without esophagitis; Q60.0 Renal agenesis, unilateral; G43.009 Migraine without aura, not intractable, without status migrainosus

== ENCOUNTER 2025-04-09 09:38 | Outpatient (REF) | payer OTHER, SELFPAY ==
--- NOTE | ~2025-04-09 | MM_ITS ---
EXAMINATION: MM SCREENING DIGITAL BREAST TOMOSYNTHESIS, BILATERAL CLINICAL INFORMATION: Screening. Asymptomatic. COMPARISON: Mammography: Comparison is made with available priors TECHNIQUE: Digital breast mammography with tomosynthesis is performed in both the craniocaudal and mediolateral oblique views along with computer-aided detection (CAD). FINDINGS: The breasts are heterogeneously dense, which may obscure small masses. There are no significant masses, abnormal calcifications, or other abnormalities. MM/MM tomosynthesis screening BI IMPRESSION: No mammographic evidence of malignancy. ASSESSMENT: BI-RADS Category 1: Negative RECOMMENDATION: Routine annual mammography screening. 1 year F/U This examination should not preclude the clinical evaluation of a suspicious palpable abnormality. This patient's information was entered into a reminder system with a target due date for their next mammogram. Electronically signed by: Shaina Zamudio DO 04/12/2025 05:59 PM [facility]
--- OUTSIDE RECORDS SUMMARY | 2025-04-09 09:41 | XMS_ITS | Clinical Summary ---
Author Organization [facility] Facility Address [address] [address] Care Team Providers Care Pearl Technician Name Role Phone Emilio Magaña MD Primary Care Provider [phone] Family History Medical History Relation Comments Cancer [...] age to complete this topic Care Teams Pearl Technician Relationship Specialty Start Date End Date Emilio Magaña MD [address] [place] [address] PCP - General 05/01/20
--- OUTSIDE RECORDS SUMMARY | 2025-04-09 09:41 | XMS_ITS | Encounter Summary ---
Author Organization [facility] Address [address] [place] [address] Care Team Providers Care Feed Elevator Worker Name Role Phone Unavailable Primary Care Provider Unavailabl e Encounter Details Date Type Department Care Team (Late st Contact Info) Description 04/07/2024 Scanned Document [facility] [place] [address] [place] [phone] Brenda Loving PA-C [address] [place] [address] Social History Tobacco Use Types [...]
--- OUTSIDE RECORDS SUMMARY | 2025-04-09 09:41 | XMS_ITS | Clinical Summary ---
Author Organization [facility] Address [address] [place] [address] Care Team Providers Care Director Professional Services Name Role Phone Unavailable Primary Care Provider [...] Description 02/10/2025 3:15 PM EDT Office Visit [facility] [address], [address] [place] [phone] Nehemiah Kraft MD Pain in throat [...] (1 of 2) 2014 COVID-19 Vaccine ( - season) 2024 03/29/2023, 02/24/2021, 05/14/2020, Additional history exists RSV Vaccine 50 years and older and Patients (1 - 1-dose 75+ series) 2039 Influenza Vaccine Completed 01/28/2025, , 01/24/2022, Additional history exists Hepatitis B Vaccines Aged Out No long er eligible based on patient's age to complete this topic Insurance
== END 2025-04-09 09:39 | disposition home or self-care (01) ==
LOC: HO.MAMMO 09:38
PROVIDERS: PCP Internal Medicine; Visit Provider Internal Medicine
DX: Z12.31 Encounter for screening mammogram for malignant neoplasm of breast (principal)
CPT/HCPCS: 77063; 77067

== ENCOUNTER → 2025-04-09 10:00 | Outpatient (BNV) | payer OTHER, SELFPAY | PROVIDERS: PCP Internal Medicine; Visit Provider Internal Medicine | DX: Z12.31 Encounter for screening mammogram for malignant neoplasm of breast (principal) | CPT/HCPCS: 77063; 77067 ==